=== PATIENT | female | born 2005 | race Caucasian/White ===

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

== ENCOUNTER 2023-01-05 08:32 | Emergency (ER) | payer BC, SELFPAY ==
[2023-01-05 08:32] VITALS: BP 122/73; PULSE 83; RESP 16; TEMP 36.6; O2SAT 96; BMI 48.2
[2023-01-05 08:42] VITALS: BP 122/73; PULSE 72; RESP 20; O2SAT 96
[2023-01-05 08:53] LABS: Microscopic, Urine URINE MICROSCOPIC (MICROSCOPIC)
--- NOTE | 2023-01-05 08:56 | US_ITS ---
FINAL REPORT CLINICAL HISTORY: 1st trimester bleeding FINDINGS: A single intrauterine is present. No cardiac activity is identified. Estimated gestational age based on crown-rump length is 6 weeks 5 days. There is no evidence of subchorionic hemorrhage. No significant free fluid is identified. IMPRESSION: IUP without demonstrative cardiac activity suspicious for intrauterine demise. Reviewed, Interpreted and Dictated by Sabi Nelson MD Transcribed by Lelo Thomas Authenticated and [facility]
[2023-01-05 08:58] LABS: Appearance,Urine CLEAR (Clear); Bilirubin,Urine Negative (Negative); Blood, Urine 2+ (Negative); Color,Urine YELLOW (Yellow); Glucose,Urine (UA) Negative (Negative); Ketones,Urine Negative (Negative); Leukocyte Esterase,Urine TRACE (Negative); Nitrate,Urine Negative (Negative); Protein,Urine Negative (Negative); Specific Gravity, Urine >= 1.030 (1.005-1.030); Urobilinogen,Urine 0.2 EU/dl (0.2)
[2023-01-05 09:02] LABS: Urine Pregnancy, HCG Qual. Positive (Negative)
--- NOTE | 2023-01-05 09:02 | PC.NURSE ---
PT GOING UP FOR TRANSVAG US
[2023-01-05 09:07] LABS: Basophils % 0.5 % (0.1-2.0); Eosinophils # 0.1 K/mm3 (0.0-0.4); Eosinophils % 1.5 % (0.1-12.0); Hematocrit 43.4 % (37.0-47.0); Hemoglobin 14.2 g/dL (12.2-16.2); Lymphocytes # 2.1 K/mm3 (0.7-4.5); Lymphocytes % 28.3 % (10-50); Mean Corpuscular HGB Conc 32.8 g/dL (31.8-35.4); Mean Corpuscular Volume 88.6 fl (81-99); Mean Platelet Volume 7.5 fl (7.4-10.4); Monocytes # 0.4 K/mm3 (0.1-1.0); Monocytes % 4.6 % (1.7-9.3); Neutrophils # 4.9 K/mm3 (1.8-7.8); Neutrophils % 65.1 % (37.0-80.0); Platelet Count 293 K/mm3 (142-424); Red Cell Distribution Width 13.6 % (11.5-17.5); White Blood Count 7.6 K/mm3 (4.5-13.0)
--- NOTE | 2023-01-05 09:09 | HMH.EDGENADL ---
Discharge Plan Disposition Patient Disposition: Home, Self-Care Chief Complaint: Vaginal Bleeding Prescriptions Prescriptions: No Action norgestimate-ethinyl estradiol [Ortho Tri-Cyclen (28)] 0.18/0.215/0.25 mg-35 mcg (28) tablet 1 tab PO DAILY Referrals Follow up/Referrals: Waldemar Baltazar [Primary Care Provider] - See instructions Activity Restrictions/Add. Instructions Additional Instructions/Restrictions: Return for worsening bleeding abdominal pain or any other concerns within the next 8 hours follow-up in the next few days with your wedding cake designer as well. Clinical Impressions Clinical Impression: First trimester bleeding Discharge ED Provider: Kelby Daniels General Adult HPI General Chief complaint: Vaginal Bleeding Stated complaint: 7 Weeks , spotting Time Seen by Provider: 01/05/23 08:40 Mode of Arrival: Ambulatory Source of Information: Patient Limitations: No Limitations Description of Symptoms (Recalled from ER Triage Doc. by RN): Pt reports is approx 7 weeks , reports began having vaginal bleeding this morning, describes it as spotting in nature. Pt states no cramping. History of Present Illness HPI narrative: 17-year-old female presents with vaginal spotting for 1 day. She is reportedly 7 weeks she did have a transvaginal ultrasound which showed a gestational sac a few weeks ago. No dysuria hematuria vaginal discharge diarrhea or vomiting. No abdominal pain. She has history of being be positive last fall. Related Data Home Medications Medication Instructions Recorded Confirmed norgestimate-ethinyl estradiol 1 tab PO DAILY 08/18/18 04/20/19 0.18 mg/0.215mg/0.25mg-35 mcg(28)tablet (Ortho Tri-Cyclen (28)) Allergies Allergy/AdvReac Type Severity Reaction Status Date / Time No Known Allergies Allergy Verified 04/20/19 10:32 [facility] Disclaimer: The information contained in this section may have been updated after the patient was seen, as this information can be updated by other users. Social History Smoking Status: Never smoker alcohol intake: never substance use type: denies use current occupational status: student Travel in the last 8 weeks: None household members: family housing: house ROS Obtained: Yes All systems reviewed & no additional complaints except as documented Constitutional Constitutional: Denies fatigue and Denies headache(s) Eyes Eyes: Denies dry eyes ENT Ears, Nose, Mouth, and Throat: Denies dizziness and Denies headache(s) Cardiovascular Cardiovascular: Denies dyspnea Respiratory Respiratory: Denies dyspnea Gastrointestinal Gastrointestingal: Denies coffee ground emesis Genitourinary Female Genitourinary: Denies hematuria Musculoskeletal Musculoskeletal: Denies joint stiffness Integumentary/Breasts Skin/Breast: Denies dry skin Neurologic Neurologic: Denies dizziness and Denies headache(s) Endocrine Endocrine: Denies fatigue Hematologic/Lymphatic Henatologic/Lymphatic: Denies easy bleeding Allergic/Immunologic Allergic/Immunologic: Denies urticaria Physical Exam General General appearance: alert and in no apparent distress Eye Eye exam: Present PERRL and EOMI ENT ENT exam: Present normal exam and normal oropharynx Neck Neck exam: Present normal inspection Chest Chest inspection: Present symmetric chest wall rise Respiratory Respiratory exam: Present normal lung sounds bilaterally; Absent respiratory distress Cardiovascular Cardiovascular exam: Present regular rate and normal rhythm Abdominal Exam Abdominal exam: Present soft; Absent distention, tenderness, guarding, rebound, Castelan's sign or tenderness at McBurney's Point Back Exam Back exam: Present normal inspection Neurological Exam Neurological exam: Present alert and oriented X3 Psychiatric Psychiatric exam: Present normal affect and normal mood Skin Skin exam: Present warm, dry and intact Lymphatic Lymphatic Findings: no adenopathy
[2023-01-05 09:17] LABS: Alanine Aminotransferase 40 U/L (12-78); Albumin Level 4.3 g/dl (3.5-5.0); Albumin/Globulin Ratio 1.5 (1.1-1.8); Alkaline Phosphatase 76 U/L (38-126); Anion Gap 16.7 mEq/L (5-15); Aspartate Amino Transferase 38 U/L (14-36); Bilirubin,Total 0.5 mg/dl (0.2-1.3); Blood Urea Nitrogen 14 mg/dl (7-17); Calcium 9.5 mg/dl (8.4-10.2); Carbon Dioxide 25 mmol/L (22.0-30.0); Chloride 99 mmol/L (98-107); Creatinine Clearance Estimated 136 mL/min (50-200); Estimated Glomerular Filt Rate 129 ml/min (>60); GFR (African American) 156 ML/MIN (>60); Globulin 2.8 g/dL (1.3-3.2); Glucose 97 mg/dl (74-100); Potassium 3.7 mmoL/L (3.5-5.1); Sodium 137 mmol/L (136-145); Total Protein,Serum 7.1 g/dl (6.3-8.2)
[2023-01-05 09:18] LABS: Bacteria,Urine 1+ /lpf; RBC,Urine Occasional #/hpf (0-3)
--- NOTE | 2023-01-05 09:44 | PC.NURSE ---
lab states approx 15 minutes until beta quant results, updated pt
--- NOTE | 2023-01-05 09:52 | PC.NURSE ---
DORETHA SINGH at
[2023-01-05 09:59] LABS: HCG,Quantitative 2933 mIU/ml (0-5.42)
[2023-01-05 10:05] VITALS: BP 127/75; PULSE 75; RESP 16; TEMP 36.6; O2SAT 98
== END 2023-01-05 10:05 | disposition home or self-care (01) ==
PROVIDERS: Emergency Provider Emergency Medicine; PCP Family Medicine
DX: O26.851 Spotting complicating pregnancy, first trimester (principal); Z3A.01 Less than 8 weeks gestation of pregnancy
CPT/HCPCS: 36415; 76815; 76817; 80053; 81001; 81025; 84702; 85025; 99284; 99285

== ENCOUNTER 2023-02-05 11:07 | Emergency (ER) | payer BC, SELFPAY ==
--- NOTE | 2023-02-05 11:16 | HMH.EDGENADL ---
Discharge Plan Disposition Patient Disposition: Home, Self-Care Prescriptions Prescriptions: New benzonatate 100 mg capsule 100 mg PO TID PRN (Reason: cough) 5 Days Qty: 20 0RF ondansetron 4 mg tablet,disintegrating 4 mg PO Q6H PRN (Reason: nausea and vomiting) 5 Days Qty: 20 0RF No Action norgestimate-ethinyl estradiol [Ortho Tri-Cyclen (28)] 0.18/0.215/0.25 mg-35 mcg (28) tablet 1 tab PO DAILY Referrals Follow up/Referrals: Waldemar Baltazar [Primary Care Provider] - See instructions Activity Restrictions/Add. Instructions Additional Instructions/Restrictions: Please treat your symptoms supportively taking the Zofran and your Tessalon Perles as needed for nausea and cough. You may take 800 mg of smmx-zau-yqglbce ibuprofen 3 times a day with food and I would recommend that you buy yvny-hbe-qurvimy extended release Sudafed 120 mg to take twice a day. You will need to ask the pharmacist for this but is still joro-pgj-vozkuhz do not need a prescription for this. Return with any worsening concerns. Clinical Impressions Clinical Impression: COVID-19 Discharge ED Provider: Benson Odonnell General Adult HPI General Chief complaint: Upper Respiratory Infection Stated complaint: covid +, sore throat, congestion,body aches,chills Time Seen by Provider: 02/05/23 11:16 History of Present Illness HPI narrative: Patient is a 17-year-old female here with multiple complaints. She states she been having body aches sinus congestion sore throat cough and some nausea with vomiting. She was able to eat a banana this morning without any difficulty. She states she just wanted to come and get some prescriptions today for treating her symptoms. She has no other underlying medical problems. She took a home COVID test which was positive. Related Data Home Medications Medication Instructions Recorded Confirmed norgestimate-ethinyl estradiol 1 tab PO DAILY 08/18/18 04/20/19 0.18 mg/0.215mg/0.25mg-35 mcg(28)tablet (Ortho Tri-Cyclen (28)) Previous Rx's Medication Instructions Recorded benzonatate 100 mg capsule 100 mg PO TID PRN cough 5 days #20 02/05/23 caps ondansetron 4 mg disintegrating 4 mg PO Q6H PRN nausea and 02/05/23 tablet vomiting 5 days #20 tabs Allergies Allergy/AdvReac Type Severity Reaction Status Date / Time No Known Allergies Allergy Verified 04/20/19 10:32 [facility] Disclaimer: The information contained in this section may have been updated after the patient was seen, as this information can be updated by other users. Social History Smoking Status: Never smoker alcohol intake: never substance use type: denies use current occupational status: student Travel in the last 8 weeks: None household members: family housing: house ROS Obtained: Yes All systems reviewed & no additional complaints except as documented Physical Exam General General appearance: alert Respiratory Respiratory exam: Present normal lung sounds bilaterally Cardiovascular Cardiovascular exam: Present regular rate; Absent tachycardia Neurological Exam Neurological exam: Present alert Medical Decision Making Jb Inquiry Pt receiving controlled substance: No Vital Signs: 02/05/23 11:28 Temperature 98.2 F Temperature Source Oral Pulse Rate [Right Brachial] 94 H Respiratory Rate 18 Blood Pressure [Right Arm] 120/68 Blood Pressure Mean [Right Arm] 85 Blood Pressure Source [Right Arm] Automatic Cuff Blood Pressure Position [Right Arm] Sitting 02 Sat by Pulse Oximetry 98 Oxygen Delivery Method Room Air Medical Decision Narrative: 17-year-old female with a home COVID-positive test and viral symptoms this is consistent with viral syndrome associated with COVID-19. We will treat supportively she is not high risk not a candidate for Paxlovid she also does not need any other intervention at the moment her exam is completely normal. Told her to take ibuprofen and over-the
[2023-02-05 11:28] VITALS: BP 120/68; PULSE 94; RESP 18; TEMP 36.8; O2SAT 98; BMI 46.5
[2023-02-05 11:33] VITALS: BP 120/68; PULSE 94; RESP 18; TEMP 36.8; O2SAT 98
== END 2023-02-05 11:37 | disposition home or self-care (01) ==
PROVIDERS: Emergency Provider Student in an Organized Health Care Education/Training Program; PCP Family Medicine
DX: U07.1 COVID-19 (principal); J06.9 Acute upper respiratory infection, unspecified; R11.2 Nausea with vomiting, unspecified
CPT/HCPCS: 99283; 99284

== ENCOUNTER → 2023-04-21 13:42 | Outpatient (CLI) | payer BC, SELFPAY ==
[2023-04-21 16:04] LABS: HCG,Quantitative 612 mIU/ml (0-5.42)
== END ==
PROVIDERS: PCP Family Medicine; Visit Provider Obstetrics & Gynecology
DX: Z32.01 Encounter for pregnancy test, result positive (principal)
CPT/HCPCS: 36415; 84702

== ENCOUNTER 2023-05-02 12:54 | Emergency (ER) | payer BC, SELFPAY ==
[2023-05-02 13:10] VITALS: BP 132/46; PULSE 92; RESP 18; TEMP 36.8; O2SAT 98; BMI 48.2
--- NOTE | 2023-05-02 13:24 | EXP.UTC ---
Discharge Plan Disposition Patient Disposition: Home, Self-Care Condition: Good Prescriptions Prescriptions: No Action progesterone micronized 200 mg capsule 200 mg PO DAILY Patient Comments: TAKE 1 CAPSULE BY MOUTH ONCE DAILY AT NIGHT Referrals Follow up/Referrals: Waldemar Baltazar [Primary Care Provider] - See instructions Activity Restrictions/Add. Instructions Additional Instructions/Restrictions: Drink plenty of fluids. Take tylenol for pain or fever. Follow up with your regular doctor. GO TO THE ER FOR ANY WORSENING SYMPTOMS Clinical Impressions Clinical Impression: Acute viral syndrome Stand Alone Forms Stand Alone Forms: Work/School Release Instructions Patient Instructions: DI for Viral Syndrome, Coronavirus Disease 2019, Preventing the Spread of Coronavirus Discharge Instructions Discharge ED Provider: Rios Gutierrez [facility] General Stated complaint: sore throat Mode of Arrival: Ambulatory Source of Information: Patient Limitations: No Limitations Time Seen by Provider: 05/02/23 13:24 Description of Symptoms (Recalled from Triage Doc. by RN): Covid test for schoo; HEENT Symptoms (Recalled from RN notes): No Resp Symptoms (Recalled from RN notes): No Skin Symptoms (Recalled from RN notes): No MS Symptoms (Recalled from RN notes): No Functional Status (Recalled from RN notes): n/a History of Present Illness Provider Complaint: She states that she has had a runny nose and scratchy throat for the past 2 days. She is starting to feel better, but her work requires a covid-19 test. Related Data Home Medications Medication Instructions Recorded Confirmed progesterone micronized 200 mg 200 mg PO DAILY 05/02/23 05/02/23 capsule Allergies Allergy/AdvReac Type Severity Reaction Status Date / Time No Known Allergies Allergy Verified 05/02/23 13:16 Worker's Comp Is this a Worker's Comp case?: No [facility] Disclaimer: The information contained in this section may have been updated after the patient was seen, as this information can be updated by other users. Social History Smoking Status: Never smoker alcohol intake: never substance use type: denies use current occupational status: student Travel in the last 8 weeks: None household members: family housing: house ROS Obtained: Yes All systems reviewed & no additional complaints except as documented Constitutional Constitutional: Denies chills and Denies fever(s) Eyes Eyes: Denies eye discharge ENT Ears, Nose, Mouth, and Throat: Denies dizziness, Denies otalgia and Denies sore throat Cardiovascular Cardiovascular: Denies chest pain Respiratory Respiratory: Denies shortness of breath, Denies chest congestion, Denies cough, Denies stridor and Denies wheezing Gastrointestinal Gastrointestingal: Denies nausea or vomiting Musculoskeletal Musculoskeletal: Reports system reviewed and no additional complaints, except as documented and Denies arthralgias Integumentary/Breasts Skin/Breast: Denies rash Neurologic Neurologic: Denies dizziness and Denies paresthesias Allergic/Immunologic Allergic/Immunologic: Denies wheezing Physical Exam General General appearance: alert and in no apparent distress Head Head exam: atraumatic, normocephalic and normal inspection Eye Eye exam: Present normal appearance, PERRL and EOMI ENT ENT exam: Present normal exam, normal oropharynx, mucous membranes moist, TM's normal bilaterally and normal external ear exam Neck Neck exam: Present normal inspection, full ROM and trachea midline; Absent meningismus or lymphadenopathy Chest Chest inspection: Present normal inspection and symmetric chest wall rise; Absent tenderness Respiratory Respiratory exam: Present normal lung sounds bilaterally; Absent respiratory distress Cardiovascular Cardiovascular exam: Present regular rate and normal rhythm; Absent JVD Abdominal E
[2023-05-02 13:55] VITALS: BP 132/46; PULSE 92; RESP 18; TEMP 36.8; O2SAT 98
== END 2023-05-02 13:40 | disposition home or self-care (01) ==
PROVIDERS: Emergency Provider Nurse Practitioner Family; PCP Family Medicine
DX: R09.81 Nasal congestion (principal); Z20.822 Contact with and (suspected) exposure to COVID-19; B34.9 Viral infection, unspecified
CPT/HCPCS: 99203; 99212; G0463

== ENCOUNTER 2024-03-05 15:13 | Emergency (ER) | payer BC, SELFPAY ==
--- NOTE | 2024-03-05 15:25 | EXP.UTC ---
Discharge Plan Disposition Patient Disposition: Home, Self-Care Condition: Good Prescriptions Prescriptions: New amoxicillin 875 mg tablet 875 mg PO Q12H Qty: 20 0RF methylprednisolone 4 mg Tablets,Dose Pack 4 mg PO DIRECTED 6 Days Qty: 21 0RF Rx Instructions: Take 1 pack as directed for 6 days qnhasjxrmiyrobh-ynskjapcy-RR [Bromfed DM] 2-30-10 mg/5 mL Syrup 5 ml PO Q6H PRN (Reason: Cough) Qty: 240 0RF No Action progesterone micronized 200 mg capsule 200 mg PO DAILY Patient Comments: TAKE 1 CAPSULE BY MOUTH ONCE DAILY AT NIGHT Referrals Follow up/Referrals: Waldemar Baltazar [Primary Care Provider] - See instructions Activity Restrictions/Add. Instructions Additional Instructions/Restrictions: Drink plenty of fluids. Take tylenol for pain or fever. Take the medications as directed. Follow up with your regular doctor. GO TO THE ER FOR ANY WORSENING SYMPTOMS Clinical Impressions Clinical Impression: Pharyngitis, Acute viral syndrome, Sinusitis Stand Alone Forms Stand Alone Forms: Work/School Release Instructions Patient Instructions: Sinusitis, DI for Sinusitis Discharge ED Provider: Rios Gutierrez [facility] General Stated complaint: philip, sore throat, vomiting Time Seen by Provider: 03/05/24 15:24 History of Present Illness Provider Complaint: She states that for the past 3 days she has had worsening sinus congestion, sore throat, ear pain and chest congestion. Related Data Home Medications Medication Instructions Recorded Confirmed progesterone micronized 200 mg 200 mg PO DAILY 05/02/23 05/02/23 capsule Previous Rx's Medication Instructions Recorded amoxicillin 875 mg tablet 875 mg PO Q12H #20 tabs 03/05/24 yvazwsatbvidfqm-pkuewvfzdmnfyxp-SG 5 ml PO Q6H PRN Cough #240 mL 03/05/24 2 mg-30 mg-10 mg/5 mL oral syrup (Bromfed DM) methylprednisolone 4 mg tablets in 4 mg PO DIRECTED 6 days #21 tabs 03/05/24 a dose pack Allergies Allergy/AdvReac Type Severity Reaction Status Date / Time No Known Allergies Allergy Verified 03/05/24 15:29 [facility] Disclaimer: The information contained in this section may have been updated after the patient was seen, as this information can be updated by other users. Social History Smoking Status: Never smoker alcohol intake: never substance use type: denies use current occupational status: student Travel in the last 8 weeks: None household members: family housing: house ROS Obtained: Yes All systems reviewed & no additional complaints except as documented Constitutional Constitutional: Reports chills and Reports fever(s) Eyes Eyes: Denies eye discharge ENT Ears, Nose, Mouth, and Throat: Reports as per HPI Cardiovascular Cardiovascular: Denies chest pain Respiratory Respiratory: Denies chest congestion and Reports cough Gastrointestinal Gastrointestingal: Reports nausea; Denies abdominal pain, constipation, cramping, diarrhea or vomiting Musculoskeletal Musculoskeletal: Denies arthralgias Integumentary/Breasts Skin/Breast: Denies rash Neurologic Neurologic: Denies paresthesias Physical Exam General General appearance: alert and in no apparent distress Head Head exam: atraumatic, normocephalic and normal inspection Eye Eye exam: Present normal appearance, PERRL and EOMI ENT ENT exam: Present mucous membranes moist and normal external ear exam Expanded ENT Exam TM/Canal exam: Bilateral TM: erythema and bulging Nose exam: Absent sinus tenderness Mouth exam: Present normal external inspection; Absent drooling Teeth exam: Present normal inspection Throat exam: Present tonsillar erythema, tonsillomegaly and tonsillar exudate Neck Neck exam: Present normal inspection, full ROM and trachea midline; Absent tenderness, meningismus or lymphadenopathy Chest Chest inspection: Present normal inspection and symmetric chest wall rise; Absent tenderness Respiratory Respiratory exam: Present normal lung sounds bilaterally; Absent respiratory distress, wheezes, stridor or accessory muscle use Cardiovascular Cardiovascular exam: Present regular rate and normal rhythm; Absent systolic murmur or diastolic murmur Abdominal Exam Abdominal exam: Present soft and normal bowel sounds; Absent distention, tenderness, guarding, rebound or rigidity Extremities Exam Extremities exam: Present normal inspection and normal capillary refill; Absent calf tenderness Back Exam Back exam: Present normal inspection and full ROM; Absent tenderness, CVA tenderness (R) or CVA tenderness (L) Neurological Exam Neurological exam: Present alert, oriented X3 and CN II-XII intact Psychiatric Psychiatric exam: Present normal affect and normal mood Skin Skin exam: Present warm, dry, intact and normal color Medical Decision Making Medical Records Medical records reviewed: No I reviewed the patient's medical records. Jb Inquiry Pt receiving controlled substance: No Lab Data Lab results reviewed: Yes I reviewed the patient's lab results.
[2024-03-05 15:27] VITALS: BP 132/72; PULSE 75; RESP 16; TEMP 36.9; O2SAT 95; BMI 44.9
[2024-03-05 15:35] LABS: UTC Strep Screen (Rapid) Negative (Negative)
[2024-03-05 15:43] VITALS: BP 132/72; PULSE 75; RESP 16; TEMP 36.9
[2024-03-05 15:50] LABS: Coronavirus 19, PCR Not Detected (NotDetected); Influenza A, PCR Not Detected (NotDetected); Influenza B, PCR Not Detected (NotDetected)
== END 2024-03-05 15:44 | disposition home or self-care (01) ==
PROVIDERS: Emergency Provider Nurse Practitioner Family; PCP Family Medicine
DX: J02.9 Acute pharyngitis, unspecified (principal); J01.90 Acute sinusitis, unspecified; H92.03 Otalgia, bilateral; R50.9 Fever, unspecified; B34.9 Viral infection, unspecified
CPT/HCPCS: 87636; 87880; 99212; 99214; G0463

== ENCOUNTER 2024-06-29 08:41 | Emergency (ER) | payer BC, SELFPAY ==
[2024-06-29 08:56] VITALS: BP 119/57; PULSE 100; RESP 18; TEMP 36.7; O2SAT 97; BMI 44.9
[2024-06-29 09:07] LABS: UTC Strep Screen (Rapid) Negative (Negative)
[2024-06-29 09:08] LABS: UTC Influenza A Antigen Negative (Negative); UTC Influenza B Antigen Negative (Negative)
--- NOTE | 2024-06-29 09:19 | ED_ITS ---
Discharge Plan Disposition Patient Disposition: Home, Self-Care Condition: Good Prescriptions Prescriptions: New gscvmxhnieuifxf-ksrjcpong-MN [Bromfed DM] 2-30-10 mg/5 mL syrup 10 ml PO Q4-6H PRN (Reason: cough/sinus ) Qty: 200 0RF Referrals Follow up/Referrals: Waldemar Baltazar [Primary Care Provider] - See instructions Activity Restrictions/Add. Instructions Additional Instructions/Restrictions: Take medication as prescribed. If symptoms persist or worsen, return to clinic or go to primary care provider. Clinical Impressions Clinical Impression: Acute viral syndrome Instructions Patient Instructions: DI for Viral Upper Respiratory Infection -- Adult Print Language Print Language: Thai Discharge ED Provider: Kya Friedman [facility] – [place] HPI General Stated complaint: sore throat, congestion, fever, body aches Mode of Arrival: Ambulatory Source of Information: Patient Time Seen by Provider: 06/29/24 09:18 Description of Symptoms (Recalled from Triage Doc. by RN): SORE THROAT, CONGESTION, BODY ACHES, LOW GRADE FEVER AT HOME HEENT Symptoms (Recalled from RN notes): Yes Resp Symptoms (Recalled from RN notes): Yes Skin Symptoms (Recalled from RN notes): No MS Symptoms (Recalled from RN notes): No Functional Status (Recalled from RN notes): WNL History of Present Illness Provider Complaint: Pt reports that she started feeling bad after trick or tr eating. She reports a low grade fever up to 99.8, sore throat, cough, and runny nose. She denies taking anything for her symptoms. Related Data Previous Rx's ?Medication ?Instructions ?Recorded mzberbowvqhaekx-onkrwfflvzzorth-EC 10 ml PO Q4-6H PRN cough/sinus 06/29/24 2 mg-30 mg-10 mg/5 mL oral syrup #200 mL (Bromfed DM) Allergies Allergy/AdvReac Type Severity Reaction Status Date / Time No Known Allergies Allergy Verified 03/05/24 15:29 Worker's Comp Is this a Worker's Comp case?: No [facility] Disclaimer: The information contained in this section may have been updated after the patient was seen, as this information can be updated by other users. Social History Smoking Status: Never smoker alcohol intake: never substance use type: denies use current occupational status: student Travel in the last 8 weeks: None household members: family housing: house ROS Obtained: Yes All systems reviewed & no additional complaints except as documented Constitutional Constitutional: Reports system reviewed and no additional complaints, except as documented, Reports fever(s) and Reports malaise Eyes Eyes: Reports system reviewed and no additional complaints, except as documented ENT Ears, Nose, Mouth, and Throat: Reports system reviewed and no additional complaints, except as documented, Reports nasal discharge and Reports sore throat Cardiovascular Cardiovascular: Reports system reviewed and no additional complaints, except as documented Respiratory Respiratory: Reports system reviewed and no additional complaints, except as documented and Reports non-productive cough Gastrointestinal Gastrointestingal: Reports system reviewed and no additional complaints, except as documented Genitourinary Female Genitourinary: Reports system reviewed and no additional complaints, except as documented Musculoskeletal Musculoskeletal: Reports system reviewed and no additional complaints, except as documented Integumentary/Breasts Skin/Breast: Reports system reviewed and no additional complaints, except as documented Neurologic Neurologic: Reports system reviewed and no additional complaints, except as documented Endocrine Endocrine: Reports system reviewed and no additional complaints, except as documented Hematologic/Lymphatic Henatologic/Lymphatic: Reports system reviewed and no additional complaints, except as documented Allergic/Immunologic Allergic/Immunologic: Reports system reviewed and no additional complaints, except as documented Physical Exam General General appearance: alert and in no apparent distress Head Head exam: atraumatic and normocephalic Eye Eye exam: Present normal appearance ENT ENT exam: Present mucous membranes moist Expanded ENT Exam External ear exam: Present normal external inspection Nasal speculum exam: Bilateral: normal Mouth exam: Present normal external inspection Teeth exam: Present normal inspection Throat exam: Present tonsillar erythema Neck Neck exam: Present normal inspection Chest Chest inspection: Present normal inspection and symmetric chest wall rise Respiratory Respiratory exam: Present normal lung sounds bilaterally Cardiovascular Cardiovascular exam: Present regular rate and normal rhythm Abdominal Exam Abdominal exam: Present soft and normal bowel sounds Extremities Exam Extremities exam: Present normal inspection Back Exam Back exam: Present normal inspection Neurological Exam Neurological exam: Present alert and oriented X3 Psychiatric Psychiatric exam: Present normal affect and normal mood Skin Skin exam: Present warm, dry and intact Lymphatic Lymphatic Findings: no adenopathy Medical Decision Making Medical Records Screening: Per USPSTF and CDC recommendations, given the prevalence of disease in our region, it is our hospital?s policy to screen for HIV and viral Hepatitis for all patients aged 18 and over and those with ongoing risk factors. Jb Inquiry Pt receiving controlled substance: No Jb was queried for this patient: No Vital Signs: 06/29/24 08:56 Temperature 98.1 F Temperature Source Oral Pulse Rate [Left Brachial] 100 H Respiratory Rate 18 Blood Pressure [Left Arm] 119/57 L Blood Pressure Mean [Left Arm] 77 02 Sat by Pulse Oximetry 97 Lab Data Lab results reviewed: Yes I reviewed the patient's lab results. Lab Results 06/29/24 08:56: Influenza Type A Ag Negative, Influenza Type B Ag Negative, Strep Scn Rapid Clinic Negative Orders (Tests/Meds): ORDERS Category Date Time Status Strep Screen Confirmation Stat Micro 06/29/24 08:56 Received
[2024-06-29 09:37] VITALS: BP 119/57; PULSE 100; RESP 18; TEMP 36.7
== END 2024-06-29 09:37 | disposition home or self-care (01) ==
PROVIDERS: Emergency Provider Nurse Practitioner Family; PCP Family Medicine
DX: J06.9 Acute upper respiratory infection, unspecified (principal)
CPT/HCPCS: 87804; 87880; 99213; G0381

== ENCOUNTER 2024-07-01 08:09 | Emergency (ER) | payer BC, SELFPAY ==
[2024-07-01 08:20] VITALS: BP 122/70; PULSE 104; RESP 20; TEMP 36.8; O2SAT 96; BMI 44.7
--- NOTE | 2024-07-01 08:50 | ED_ITS ---
Discharge Plan Disposition Patient Disposition: Home, Self-Care Condition: Good Prescriptions Prescriptions: New methylprednisolone [Medrol (Braydon)] 4 mg tablets,dose pack See Rx Instructions .Route .COMPLEX 6 Days Qty: 21 0RF Rx Instructions: taper pack; guaifenesin [Mucinex] 600 mg tablet extended release 12hr 1,200 mg PO BID PRN (Reason: cough) Qty: 20 0RF azithromycin [Zithromax Z-Braydon] 250 mg tablet See Rx Instructions .ROUTE .COMPLEX 5 Days Qty: 6 0RF Rx Instructions: For 250 mg dose pack: take 500 mg today (day 1), then 250 mg for 4 days (days 2-5) No Action ejfcxqpfjetaaat-rgkagpndk-CB [Bromfed DM] 2-30-10 mg/5 mL syrup 10 ml PO Q4-6H PRN (Reason: cough/sinus ) Qty: 200 0RF Referrals Follow up/Referrals: Waldemar Baltazar [Primary Care Provider] - See instructions Activity Restrictions/Add. Instructions Additional Instructions/Restrictions: *Monitor Temp, Over the counter Motrin or Tylenol as directed/as needed Tylenol every 4 hours and Motrin every 6 hours (as long as your family doctor has told you that you can take it) for fever or pain. and straight to ER if unable to lower temp less than 101.0 after medication given *Warm salt water gargles may help to soothe the throat *Throat Lozenges? *Warm fluids like tea with honey may help to soothe the throat? *Sleep elevated *Humidifier/Vaporizer *Bromfed may cause drowsiness. Know how it effects you (your child) before driving, caring for small child, or sending your child to school. Not other antihistamines/allergy medications while taking bromfed Take medication as prescribed Follow up IMMEDIATELY for new or worsening symptoms or no Noticeable improvement over the next 48-72 hours. 911 for difficulty breathing or swallowing Clinical Impressions Clinical Impression: Pharyngitis Instructions Patient Instructions: Sore Throat, Cough Print Language Print Language: Polish Discharge ED Provider: Sarika Felipe [facility] HPI General Stated complaint: sore throat, cough, congestion, fever Mode of Arrival: Ambulatory Source of Information: Patient Limitations: No Limitations Time Seen by Provider: 07/01/24 08:51 Description of Symptoms (Recalled from Triage Doc. by RN): PATIENT C/O NAUSEA, VOMITING, SORE THROAT, COUGH, AND CONGESTION. SHE STATES SHE WAS SEEN ON MONDAY AND WAS GIVEN COUGH MEDICINE, BUT STATES SYMPTOMS ARE WORSE HEENT Symptoms (Recalled from RN notes): Yes Resp Symptoms (Recalled from RN notes): Yes Skin Symptoms (Recalled from RN notes): No MS Symptoms (Recalled from RN notes): No Functional Status (Recalled from RN notes): WNL History of Present Illness Provider Complaint: Patient states that she was seen on Monday and dx with viral infection States since then her symptoms has got wore states that she is having cough, sore throat and at times coughing up mucous, achy and over all not feeling well States she was prescribed cough medication but it isnt working so today she had to miss work again so she came in to get checked Related Data Previous Rx's ?Medication ?Instructions ?Recorded sfamqqauylndycl-lbsmdplxogpxvzy-VE 10 ml PO Q4-6H PRN cough/sinus 06/29/24 2 mg-30 mg-10 mg/5 mL oral syrup #200 mL (Bromfed DM) azithromycin 250 mg tablet See Rx Instructions PO .COMPLEX 5 07/01/24 (Zithromax Z-Braydon) days #6 tabs guaifenesin 600 mg tablet, 1,200 mg (2 x 600 mg) PO BID PRN 07/01/24 extended release 12 hr (Mucinex) cough #20 tabs methylprednisolone 4 mg tablets in See Rx Instructions .Route 07/01/24 a dose pack (Medrol (Braydon)) .COMPLEX 6 days #21 tabs Allergies Allergy/AdvReac Type Severity Reaction Status Date / Time No Known Allergies Allergy Verified 03/05/24 15:29 Worker's Comp Is this a Worker's Comp case?: No [facility] Disclaimer: The information contained in this section may have been updated after the patient was seen, as this information can be updated by other users. Medical History (Updated 07/01/24 @ 09:00 by Sarika Felipe APRN) Asthma Surgical History (Updated 07/01/24 @ 08:48 by Jazmyne Hubbard RN) History of section Social History Smoking Status: Never smoker alcohol intake: never substance use type: denies use current occupational status: student Travel in the last 8 weeks: None household members: family housing: house ROS Obtained: Yes All systems reviewed & no additional complaints except as documented and Yes Systems reviewed as appropriate & no additional complaints except as documented Constitutional Constitutional: Reports system reviewed and no additional complaints, except as documented, Reports as per HPI and Reports body ache ENT Ears, Nose, Mouth, and Throat: Reports system reviewed and no additional complaints, except as documented, Reports as per HPI, Reports nasal congestion, Reports sinus pressure and Reports sore throat Cardiovascular Cardiovascular: Reports system reviewed and no additional complaints, except as documented and Reports as per HPI Respiratory Respiratory: Reports system reviewed and no additional complaints, except as documented, Reports as per HPI, Reports chest congestion and Reports cough Gastrointestinal Gastrointestingal: Reports system reviewed and no additional complaints, except as documented and as per HPI Physical Exam General General appearance: alert and in no apparent distress ENT ENT exam: Present mucous membranes moist and TM's normal bilaterally Expanded ENT Exam Nose exam: Absent sinus tenderness Throat exam: Present other (Pharyngeal erythema noted with PND) Chest Chest inspection: Present normal inspection and symmetric chest wall rise Respiratory Respiratory exam: Present normal lung sounds bilaterally; Absent respiratory distress or wheezes Cardiovascular Cardiovascular exam: Present regular rate, normal rhythm and normal heart sounds Abdominal Exam Abdominal exam: Present soft and normal bowel sounds; Absent distention or tenderness Neurological Exam Neurological exam: Present alert, oriented X3 and normal gait Medical Decision Making Medical Records Screening: Per USPSTF and CDC recommendations, given the prevalence of disease in our region, it is our hospital?s policy to screen for HIV and viral Hepatitis for all patients aged 18 and over and those with ongoing risk factors. Jb Inquiry Pt receiving controlled substance: No Jb was queried for this patient: No Vital Signs: 07/01/24 08:20 Temperature 98.3 F Temperature Source Oral Pulse Rate [Left Brachial] 104 H Respiratory Rate 20 Blood Pressure [Left Arm] 122/70 Blood Pressure Mean [Left Arm] 87 Blood Pressure Source [Left Arm] Automatic Cuff Blood Pressure Position [Left Arm] Sitting 02 Sat by Pulse Oximetry 96 Oxygen Delivery Method Room Air
[2024-07-01 09:01] VITALS: BP 122/70; PULSE 104; RESP 20; TEMP 36.8; O2SAT 96
== END 2024-07-01 09:05 | disposition home or self-care (01) ==
PROVIDERS: Emergency Provider Nurse Practitioner; PCP Family Medicine
DX: J02.9 Acute pharyngitis, unspecified (principal)
CPT/HCPCS: 99213; G0381

== ENCOUNTER 2024-07-04 10:20 | Outpatient (CLI) | payer BC, SELFPAY ==
[2024-07-04 11:29] LABS: HCG,Quantitative 1176 mIU/ml (0-5.42)
== END 2024-07-04 23:59 | disposition home or self-care (01) ==
PROVIDERS: PCP Family Medicine; Visit Provider Obstetrics & Gynecology
DX: Z32.01 Encounter for pregnancy test, result positive (principal)
CPT/HCPCS: 36415; 84702

== ENCOUNTER 2024-07-06 10:48 | Outpatient (CLI) | payer BC, SELFPAY ==
[2024-07-06 12:52] LABS: HCG,Quantitative 2604 mIU/ml (0-5.42)
== END 2024-07-06 23:59 | disposition home or self-care (01) ==
LOC: LAB 10:50
PROVIDERS: PCP Family Medicine; Visit Provider Obstetrics & Gynecology
DX: Z32.01 Encounter for pregnancy test, result positive (principal)
CPT/HCPCS: 36415; 84702

== ENCOUNTER 2024-07-18 08:18 | Emergency (ER) | payer BC, SELFPAY ==
--- OUTSIDE RECORDS SUMMARY | 2024-07-18 08:32 | XMS_ITS | Encounter Summary ---
Author Organization [facility] Address [address] [place] [address] Care Team Providers Care Coke Oven Patcher Name Role Phone Waldemar Baltazar MD Primary Care Provider [phone] Waldemar Baltazar MD Unavailable [phone] Reason for Visit * Reason Comments Labs HCG and progesterone drawn by RN per Dr. Wu Encounter Details Date Type Department Care Team (Latest Contact Info) Description 07/01/2024 11:15 AM EST Clinical Support Obstetrics & Gynecology [facility] [place] [address] Encounter for test, result positive (Primary Dx) Social History Tobacco Use Types Packs/Day Years Used Date Smoking Tobacco: Never Smokeless Tobacco: Never Alcohol Use Standard Drinks/Week Comments Never 0 (1 standard drink = 0.6 oz pur e alcohol) PHQ-2 Answer Date Recorded Patient Health Questionnaire-2 Score 0 12/28/2023 [place] Depression Scale Answer Date Recorded [place] Depression Scale Total 0 01/26/2024 The thought of harming myself has occurred to me . Never 01/26/2024 PHQ-2A Answer Date Recorded Patient Health Questionnaire-2 Score 0 07/12/2023 Comments No Sex and Gender Information Value Date Recorded Sex Assigned at Not on file Legal Sex Female 6:20 PM EDT Gender Identity Not on file Sexual Orientation Not on file documented as of this encounter Miscellaneous Notes * Progress Notes - Eneida Harrington RN - 07/01/2024 11:15 AM EST HCG and progesterone drawn by RN per Dr. Wu documented in this encounter Plan of Treatment Upcoming Encounters Date Type Department Care Team (Late st Contact Info) Description 08/01/2024 10:45 AM EST Routine Obstetrics & Gynecology [address] [place] [address] Chris Olguin MD [address] [place] [address] documented as of this encounter Procedures Procedure Name Priority Date/Time Associated Diagnosis Comments PROGESTERONE III Routine 07/01/2024 11:1 8 AM EST Encounter for test, result positive HCG, QUANTITATIVE Routine 07/01/2024 11: 12 AM EST Encounter for test, result positive documented in this encounter Results * Progesterone (07/01/2024 11:18 AM EST) Progesterone III 9.44 ng/mL 07/01/20 24 3:12 PM EST [facility] Blood Venous blood specimen / Unknown Venipuncture / Unknown 07/01/2024 11:18 AM EST 07/01/2024 1:12 PM EST Narrative [facility] - 07/01/2024 3:12 PM EST Menstrual Cycle Phase Reference Intervals: Females, 18 Y and up (ng/mL) Follicular ?<= 0.33 Ovulation ? <= 2.35 Luteal ? 0.5-21 Post-Menopausal <0.2 reference Intervals (ng/mL): 1st Trimester ?11 - 45 2nd Trimester ?25 - 84 3rd Trimester ?58 - 214 us Miri Wu MD LAB BLOOD ORDERABLES Fin al Result [facility] [address] [place] [address] * (ABNORMAL) hCG, Total Beta, Quantitative, Plasma (07/01/2024 11:12 AM EST) hCG, Total Beta 470(H) <5 mIU/mL 07/01/2024 2:07 PM EST [facility] Blood Venous blood specimen / Unknown Venipuncture / Unknown 07/01/2024 11:12 AM EST 07/01/2024 1:13 PM EST Narrative [facility] - 07/01/2024 2:07 PM EST Patients: ? Normal Range Premenopausal Female < 5 mIU/mL Male ?< 3 mIU/mL Postmenopausal Female < 8 mIU/mL The Prema Elecsys hCG+beta assay is standardized to the 4th IS for Chorionic Gonadotropin. ??The combination of the specific monoclonal antibodies used in this assay recognizes the holo-hormone, nicked forms of hCG, the Beta-core Fragment and the free beta-subunit. ?? Elevated hCG concentrations not associated with are found in patients with gestational trophoblastic disease and choriocarcinoma as well as germ cell, ovarian, bladder, pancreas, stomach, lung and liver tumors. Performed by the Prema electrochemiluminescent immunoassay which is traceable to the 4th International Standard for hCG (NIBSC 75/589). Results obtained with different test methods or kits cannot be used interchangeably. Miri Wu MD LAB BLOOD ORDERABLES Fin al Result [facility] [address] [place] [address] documented in this encounter Visit Diagnoses Diagnosis Encounter for test, result positive- Primary documented in this encounter Additional Health Concerns Assessment Noted Time A fall risk assessment has been complete d for the patient 12/28/2023 11:31 AM EDT A Body Mass Index follow-up plan has been documented for the patient 07/01/2024 11:39 AM EST documented as of this encounter Care Teams Coke Oven Patcher Relationship Specialty Start Date End Date Waldemar Baltazar MD [address] [place] [address] PCP - General 01/06/23 Waldemar Baltazar MD [address] [place] [address] 01/06/23 documented as of this encounter
--- OUTSIDE RECORDS SUMMARY | 2024-07-18 08:32 | XMS_ITS | Encounter Summary ---
Author Organization [facility] Address [address] [place] [address] Care Team Providers Care Senior Portfolio Manager Name Role Phone Waldemar Baltazar MD Primary Care Provider [phone] Waldemar Baltazar MD Unavailable [phone] Encounter Details Date Type Department Care Team (Latest Contact Info) Description 01/25/2024 Travel Social History Tobacco Use Types Packs/Day Years Used Date Smoking Tobacco: Never Smokeless Tobacco: Never Alcohol Use Standard Drinks/Week Comments Never 0 (1 standard drink = 0.6 oz pur e alcohol) PHQ-2 Answer Date Recorded Patient Health Questionnaire-2 Score 0 12/28/2023 [place] Depression Scale Answer Date Recorded [place] Depression Scale Total 0 01/26/2024 The thought of harming myself has occurred to me . Never 01/26/2024 PHQ-2A Answer Date Recorded Patient Health Questionnaire-2 Score 0 07/12/2023 Comments No Sex and Gender Information Value Date Recorded Sex Assigned at Not on file Legal Sex Female 6:20 PM EDT Gender Identity Not on file Sexual Orientation Not on file documented as of this encounter Plan of Treatment Upcoming Encounters Date Type Department Care Team (Late Contact Info) Description 08/01/2024 10:45 AM EST Routine [facility] [address] [place] [address] Chris Olguin MD [address] [place] [address] documented as of this encounter Visit Diagnoses Not on filedocumented in this encounter Additional Health Concerns Assessment Noted Time A fall risk assessment has been complete d for the patient 12/28/2023 11:31 AM EDT A Body Mass Index follow-up plan has been documented for the patient 12/28/2023 7:44 PM EDT documented as of this encounter Care Teams Senior Portfolio Manager Relationship Specialty Start Date End Date Waldemar Baltazar MD [address] [place] [address] PCP - General 01/06/23 Waldemar Baltazar MD [address] [place] [address] 01/06/23 documented as of this encounter
--- OUTSIDE RECORDS SUMMARY | 2024-07-18 08:32 | XMS_ITS | Encounter Summary ---
Author Organization [facility] Address [address] [place] [address] Care Team Providers Care Break Off Worker Name Role Phone Waldemar Baltazar MD Primary Care Provider [phone] Waldemar Baltazar MD Unavailable [phone] Encounter Details Date Type Department Care Team (Late st Contact Info) Description 07/01/2024 Telephone Obstetrics & Gynecology [address] [place] [address] Miri Wu MD [address] [place] [address] Social History Tobacco Use Types Packs/Day Years Used Date Smoking Tobacco: Never Smokeless Tobacco: Never Alcohol Use Standard Drinks/Week Comments Never 0 (1 standard drink = 0.6 oz pur e alcohol) PHQ-2 Answer Date Recorded Patient Health Questionnaire-2 Score 0 12/28/2023 [place] Depression Scale Answer Date Recorded [place] Depression Scale Total 0 01/26/2024 The thought [...] as of this encounter Miscellaneous Notes * Telephone Encounter - Adamaris Redmond - 07/01/2024 10:19 AM EST Called and scheduled hcg * Telephone Encounter - Adamaris Eldridge - 07/01/2024 10:05 AM EST Clinical Concern/Question Reason for Call: Pt had pos preg test and asking to have her beta drawn today or sent to [facility] for her to do there. Please call. Best contact number: [phone] (mobile) Optimal time of day to reach caller: ANYTIME Additional comments/information from caller: None Note: Please do not reply to this message. Follow-up communication and further actions as a result of this message need to be communicated with the patient directly, if the patient is not active onMyChart. If the patient is active on MyChart, they will receive notification of the communication/outcome via [employer] documented in this encounter Plan of Treatment Upcoming Encounters Date Type Department Care Team (Late st Contact Info) Description 08/01/2024 10:45 AM EST Routine [facility] [address] [place] [address] Chris Olguin MD [address] [place] [address] documented as of this encounter Visit Diagnoses Not on filedocumented in this encounter Additional Health Concerns Assessment Noted Time A fall risk assessment has been complete d for the patient 12/28/2023 11:31 AM EDT A Body Mass Index follow-up plan has been documented for the patient 07/01/2024 11:39 AM EST documented as of this encounter Care Teams Break Off Worker Relationship Specialty Start Date End Date Waldemar Baltazar MD [address] [place] [address] PCP - General 01/06/23 Waldemar Baltazar MD [address] [place] [address] 01/06/23 documented as of this encounter
--- OUTSIDE RECORDS SUMMARY | 2024-07-18 08:32 | XMS_ITS | Encounter Summary ---
Author Organization [facility] Address [address] [place] [address] Care Team Providers Care Soup Mixer Name Role Phone Waldemar Baltazar MD Primary Care Provider Waldemar Baltazar MD Unavailable [phone] Encounter Details Date Type Department Care Team (Latest Contact Info) Description 07/15/2024 9:50 AM EST Ancillary Procedure Obstetrics & Gynecology [address] [place] [address] state, incidental Social History Tobacco Use Types Packs/Day Years Used Date Smoking Tobacco: Never Smokeless Tobacco: Never Alcohol Use Standard Drinks/Week Comments Never 0 (1 standard drink = 0.6 oz pur e alcohol) PHQ-2 Answer Date Recorded Patient Health Questionnaire-2 Score 0 12/28/2023 [place] Depression Scale Answer Date Recorded [place] Depression Scale Total 0 01/26/2024 The thought of harming myself has occurred to me . Never 01/26/2024 PHQ-2A Answer Date Recorded Patient Health Questionnaire-2 Score 0 07/12/2023 Estimated Date of Delivery Comme nts Yes 03/04/2025 Based on last me nstrual period of 05/28/2024 Sex and Gender Information Value Date Recorded Sex Assigned at Not on file Legal Sex Female 6:20 PM EDT Gender Identity Not on file Sexual Orientation Not on file documented as of this encounter Plan of Treatment Upcoming Encounters Date Type Department Care Team (Late st Contact Info) Description 08/01/2024 10:45 AM EST Routine Obstetrics & Gynecology [address] [place] [address] Chris Olguin MD [address] [place] [address] documented as of this encounter Procedures Procedure Name Priority Date/Time Associated Diagnosis Comments TSH REFLEX FT4 Routine 07/15/2024 2:00 PM EST state, incidental EXTRA TUBE LIGHT GREEN TOP Routine 07/15/2024 2:00 PM EST state, incidental EXTRA TUBES Routine 07/15/2024 2:00 PM EST state, incidental US PELVIS TRANSVAGINAL Routine 07/15/2024 9:49 AM EST state, incidental documented in this encounter Results * TSH Reflex FT4 (07/15/2024 2:00 PM EST) Thyroid Stimulating Hormone, Plasma 1.49 0.40 - 4.20 uIU/mL 07/16/2024 5:31 AM EST [facility] Blood Venous blood specimen / Unknown Venipuncture / Unknown 07/15/2024 2:00 PM EST 07/15/2024 2:01 PM EST Narrative [facility] - 07/16/2024 5:31 AM EST Trimester Specific Ranges ?TSH (??IU/mL) 1st Trimester ??0.1 ??- 3.0 2nd Trimester ??0.19 - 4.06 3rd Trimester ??0.3 ??- 3.7 us Miri Wu MD LAB BLOOD ORDERABLES Fin al Result [facility] [address] [place] [address] * Light Green Top (07/15/2024 2:00 PM EST) Extra Hold for add-ons 07/15/2024 4:01 PM EST [facility] Comment:Auto resulted. Blood Venous blood specimen / Unknown Venipuncture / Unknown 07/15/2024 2:00 PM EST 07/15/2024 2:01 PM EST us Miri Wu MD LAB BLOOD ORDERABLES Fin al Result Performing Organization Address City/State/[facility] Co de Phone Number [facility] [address] [place] [address] * US Pelvis Transvaginal (07/15/2024 9:49 AM EST) Anatomical Region Laterality Modality Pelvis Ultrasound 07/15/2024 10:0 6 AM EST Impressions 07/16/2024 2:03 PM EST The OB Ultrasound you requested has been resulted. Please navigate to the Imaging tab in [employer] for review. This message has been generated by the interface. Narrative Procedure Note Miri Wu MD - 07/16/2024 IMPRESSION: The OB Ultrasound you requested has been resulted. Please navigate to theImaging tab in [employer] for review. This message has been generated by theinterface. us Miri Wu MD IMG US PROCEDURES Final Result documented in this encounter Visit Diagnoses Diagnosis state, incidental documented in this encounter Additional Health Concerns Assessment Noted Time A fall risk assessment has been complete d for the patient 07/15/2024 10:02 AM EST A Body Mass Index follow-up plan has been documented for the patient 07/15/2024 11:08 AM EST documented as of this encounter Care Teams Soup Mixer Relationship Specialty Start Date End Date Waldemar Baltazar MD [address] [place] [address] PCP - General 01/06/23 Waldemar Baltazar MD [address] [place] [address] 01/06/23 documented as of this encounter
--- OUTSIDE RECORDS SUMMARY | 2024-07-18 08:32 | XMS_ITS | Encounter Summary ---
Author Organization [facility] Address [address] [place] [address] Care Team Providers Care Life Coach Name Role Phone Waldemar Baltazar MD Primary Care Provider Waldemar Baltazar MD Unavailable [phone] Encounter Details Date Type Department Care Team (Late st Contact Info) Description 07/03/2024 Telephone Obstetrics & Gynecology [address] [place] [address] Miri Wu MD [address] [place] [address] Social History Tobacco Use Types Packs/Day Years Used Date Smoking Tobacco: Never Smokeless Tobacco: Never Alcohol Use Standard Drinks/Week Comments Never 0 (1 standard drink = 0.6 oz pur e alcohol) PHQ-2 Answer Date Recorded Patient Health Questionnaire-2 Score 0 12/28/2023 [place] Depression Scale Answer Date Recorded [place] Depression Scale Total 0 01/26/2024 The thought [...] encounter Miscellaneous Notes * Telephone Encounter - Gill Starkey RN - 07/03/2024 4:38 PM EST Called pt and she had questions answered through [employer] message * Telephone Encounter - Adamaris Eldridge - 07/03/2024 11:02 AM EST Clinical Concern/Question Reason for Call: Pt asking for a nurse to call her back. Please call. Best contact number: [phone] (mobile) Optimal time of day to reach caller: ANYTIME Additional comments/information from caller: None Note: Please do not reply to this message. Follow-up communication and further actions as a result of this message need to be communicated with the patient directly, if the patient is not active onMyChart. If the patient is active on MyChart, they will receive notification of the communication/outcome via [employer]. documented in this encounter Plan of Treatment Upcoming Encounters Date Type Department Care Team (Late st Contact Info) Description 08/01/2024 10:45 AM EST Routine [facility] [address] [place] [address] Chris Olguin MD [address] [place] [address] documented as of this encounter Visit Diagnoses Not on filedocumented in this encounter Additional Health Concerns Assessment Noted Time A fall risk assessment has been complete d for the patient 12/28/2023 11:31 AM EDT A Body Mass Index follow-up plan has been documented for the patient 07/01/2024 11:39 AM EST documented as of this encounter Care Teams Life Coach Relationship Specialty Start Date End Date Waldeamr Baltazar MD [address] [place] [address] PCP - General 01/06/23 Waldemar Baltazar MD [address] [place], [place] [id number] 01/06/23 documented as of this encounter
--- OUTSIDE RECORDS SUMMARY | 2024-07-18 08:32 | XMS_ITS | Encounter Summary ---
Author Organization [facility] Address [address] [place] [address] Care Team Providers Care Chemical Preparer Name Role Phone Waldemar Baltazar MD Primary Care Provider Waldemar Baltazar MD Unavailable [phone] Encounter Details Date Type Department Care Team (Late st Contact Info) Description 07/01/2024 Telephone Obstetrics & Gynecology [address] [place] [address] Miri Wu MD [address] [place] [address] Social History Tobacco Use Types Packs/Day Years Used Date Smoking Tobacco: Never Smokeless Tobacco: Never Alcohol Use Standard Drinks/Week Comments Never 0 (1 standard drink = 0.6 oz pur e alcohol) PHQ-2 Answer Date Recorded Patient Health Questionnaire-2 Score 0 12/28/2023 [place] Depression Scale Answer Date Recorded [place] Depression Scale Total 0 01/26/2024 The thought [...] Miscellaneous Notes * Telephone Encounter - Adamaris Eldridge - 07/01/2024 3:09 PM EST Clinical Concern/Question Reason for Call: Pt states she needs another HCG test on Monday and asking if order can be sent to [facility]. Please call. Best contact number: [phone] (mobile) Optimal time of day to reach caller: ANYTIME Additional comments/information from caller: None Note: Please do not reply to this message. Follow-up communication and further actions as a result of this message need to be communicated with the patient directly, if the patient is not active onMyChart. If the patient is active on MyChart, they will receive notification of the communication/outcome via [email or web address]. documented in this encounter Plan of Treatment Upcoming Encounters Date Type Department Care Team (Late st Contact Info) Description 08/01/2024 10:45 AM EST Routine [facility] [address] [place] [address] Chris Olguin MD [address] [place] [address] documented as of this encounter Visit Diagnoses Not on filedocumented in this encounter Additional Health Concerns Assessment Noted Time A fall risk assessment has been complete d for the patient 12/28/2023 11:31 AM EDT A Body Mass Index follow-up plan has been documented for the patient 07/01/2024 11:39 AM EST documented as of this encounter Care Teams Chemical Preparer Relationship Specialty Start Date End Date Waldemar Baltazar MD [address] [place] [address] PCP - General 01/06/23 Waldemar Baltazar MD [address] [place] [address] 01/06/23 documented as of this encounter
--- OUTSIDE RECORDS SUMMARY | 2024-07-18 08:32 | XMS_ITS | Encounter Summary ---
Author Organization [facility] Address [address] [place] [address] Care Team Providers Care Assembling Motor Builder Name Role Phone Waldemar Baltazar MD Primary Care Provider Waldemar Baltazar MD Unavailable [phone] Reason for Visit * Reason Comments Follow-up 6 wk PP, doing good , doesn't want anything for control; no longer taking Azith Encounter Details Date Type Department Care Team (Late st Contact Info) Description 01/26/2024 1:45 PM EDT Visit Obstetrics & Gynecology [address] [place] [address] Miri Wu MD [address] [place] [address] Routine follow-up (Primary Dx) Social History Tobacco Use Types Packs/Day Years Used Date Smoking Tobacco: Never Smokeless Tobacco: Never Tobacco Cessation:Counseling Given: Not Answered Alcohol Use Standard Drinks/Week Comments Never 0 (1 standard drink = 0.6 oz pur e alcohol) PHQ-2 Answer Date Recorded Patient Health Questionnaire-2 Score 0 12/28/2023 [place] Depression Scale Answer Date Recorded [place] Depression Scale Total 0 01/26/2024 The thought of harming myself has occurred to me . Never 01/26/2024 PHQ-2A Answer Date Recorded Patient Health Questionnaire-2 Score 0 07/12/2023 Comments No Sex and Gender Information Value Date Recorded Sex Assigned at Not on file Legal Sex Female 6:20 PM EDT Gender Identity Not on file Sexual Orientation Not on file documented as of this encounter Last Filed Vital Signs Vital Sign Reading Time Taken Comments Blood Pressure 119/72 01/26/2024 2:14 PM EDT Pulse 87 01/26/2024 2:14 PM EDT Temperature 36.8 ??C (98.3 ??F) 01/26/2024 2:14 PM ED T Respiratory Rate 16 01/26/2024 2:14 PM EDT Oxygen Saturation 96% 01/26/2024 2:14 PM EDT Inhaled Oxygen Concentration - - Weight 125 kg (274 lb 11.1 oz) 01/26/2024 2:14 P M EDT Height 165.1 cm (5' 5 ) 01/26/2024 2:14 PM EDT Body Mass Index 45.71 01/26/2024 2:14 PM EDT documented in this encounter Miscellaneous Notes * Assessment & Plan Note - Miri Wu MD - 01/26/2024 3:05 PM EDT Associated Problem(s): Routine follow-up (Resolved 07/15/2024) - normal exam - incision healing well - declines contraception - will need pap when she turns 19 yo - RTC for annual with pap * Progress Notes - Miri Wu MD - 01/26/2024 1:45 PM EDT Progress Note Subjective 18yo s/p P C/S on 12/14/23 at 38w2d for macrosomia here today for 6 week visit. She is doing well today. Pain controlled. Lochia normal. Normal bowel and bladder function. Mood is good. Bottle feeding. No other concerns today. Declines contraception. Objective Visit Vitals BP 119/72 Pulse 87 Temp 36.8 ??C (98.3 ??F) (Oral) Resp 16 Physical Exam Constitutional: Appearance: Normal appearance. HENT: Head: Normocephalic and atraumatic. Cardiovascular: Rate and Rhythm: Normal rate and regular rhythm. Pulmonary: Effort: Pulmonary effort is normal. Abdominal: General: There is no distension. Palpations: Abdomen is soft. Tenderness: There is no abdominal tenderness. Comments: Incision c/d/I Neurological: General: No focal deficit present. Mental Status: She is alert and oriented to person, place, and time. Psychiatric: Mood and Affect: Mood normal. Behavior: Behavior normal. Vitals reviewed. Assessment/Plan Problem List Items Addressed This Visit Routine follow-up - Primary - normal exam - incision healing well - declines contraception - will need pap when she turns 19 yo - RTC for annual with pap Time Spent: I personally spent a total of 23 minutes on this encounter. This time includes face to face with patient, counseling and discussion and/or coordination of care. documented in this encounter Plan of Treatment Upcoming Encounters Date Type Department Care Team (Late st Contact Info) Description 08/01/2024 10:45 AM EST Routine [facility] [address] [place] [address] Chris Olguin MD [address] [place] [address] documented as of this encounter Visit Diagnoses Diagnosis Routine follow-up- Primary documented in this encounter Additional Health Concerns Assessment Noted Time A fall risk assessment has been complete d for the patient 12/28/2023 11:31 AM EDT A Body Mass Index follow-up plan has been documented for the patient 01/26/2024 6:20 PM EDT documented as of this encounter Care Teams Assembling Motor Builder Relationship Specialty Start Date End Date Waldemar Baltazar MD [address] [place] [address] PCP - General 01/06/23 Waldemar Baltazar MD [address] [place] [address] (work) 01/06/23 documented as of this encounter
--- OUTSIDE RECORDS SUMMARY | 2024-07-18 08:32 | XMS_ITS | Encounter Summary ---
Author Organization [facility] Address [address] [place] [address] Care Team Providers Care Concrete Polisher Name Role Phone Waldemar Baltazar MD Primary Care Provider [phone] Waldemar Baltazar MD Unavailable [phone] Encounter Details Date Type Department Care Team (Latest Contact Info) Description 07/15/2024 Travel Social History Tobacco Use Types Packs/Day Years Used Date Smoking Tobacco: Never Smokeless Tobacco: Never Alcohol Use Standard Drinks/Week Comments Never 0 (1 standard drink = 0.6 oz pur e alcohol) PHQ-2 Answer Date Recorded Patient Health Questionnaire-2 Score 0 12/28/2023 [place] Depression Scale Answer Date Recorded [place] Depression Scale Total 0 01/26/2024 The thought [...] AM EST Routine Obstetrics & Gynecology [address] [place] [address] Chris Olguin MD [address] [place] [address] documented as of this encounter Visit Diagnoses Not on filedocumented in this encounter Additional Health Concerns Assessment Noted Time A fall risk assessment has been complete d for the patient 07/15/2024 10:02 AM EST A Body Mass Index follow-up plan has been documented for the patient 07/15/2024 11:08 AM EST documented as of this encounter Care Teams Concrete Polisher Relationship Specialty Start Date End Date Waldemar Baltazar MD [address] [place] [address] PCP - General 01/06/23 Waldemar Baltazar MD [address] [place] [address] 01/06/23 documented as of this encounter
--- OUTSIDE RECORDS SUMMARY | 2024-07-18 08:32 | XMS_ITS | Encounter Summary ---
Author Organization [facility] Address [address] [place] [address] Care Team Providers Care Zanjero Name Role Phone Waldemar Baltazar MD Primary Care Provider Waldemar Baltazar MD Unavailable [phone] Encounter Details Date Type Department Care Team (Late st Contact Info) Description 07/03/2024 Orders Only Obstetrics & Gynecology [address] [place] [address] Miri Wu MD [address] [place] [address] Social History Tobacco Use Types Packs/Day Years Used Date Smoking Tobacco: Never Smokeless Tobacco: Never Alcohol Use Standard Drinks/Week Comments Never 0 (1 standard drink = 0.6 oz pur e alcohol) PHQ-2 Answer Date Recorded Patient Health Questionnaire-2 Score 0 12/28/2023 [place] Depression Scale Answer Date Recorded [place] Depression Scale Total 0 01/26/2024 The thought [...] EST Routine [facility] [address] [place] [address] Chris Olguin MD [address] [place] [address] documented as of this encounter Visit Diagnoses Not on filedocumented in this encounter Additional Health Concerns Assessment Noted Time A fall risk assessment has been complete d for the patient 12/28/2023 11:31 AM EDT A Body Mass Index follow-up plan has been documented for the patient 07/01/2024 11:39 AM EST documented as of this encounter Care Teams Zanjero Relationship Specialty Start Date End Date Waldemar Baltazar MD [address] [place] [address] PCP - General 01/06/23 Waldemar Baltazar MD [address] [place] [address] 01/06/23 documented as of this encounter
--- OUTSIDE RECORDS SUMMARY | 2024-07-18 08:32 | XMS_ITS | Encounter Summary ---
Author Organization [facility] Address [address] [place] [address] Care Team Providers Care Shrimp Pond Laborer Name Role Phone Waldemar Baltazar MD Primary Care Provider [phone] Waldemar Baltazar MD Unavailable [phone] Encounter Details Date Type Department Care Team (Latest Contact Info) Description 07/01/2024 Travel Social History Tobacco Use Types Packs/Day Years Used Date Smoking Tobacco: Never Smokeless Tobacco: Never Alcohol Use Standard Drinks/Week Comments Never 0 (1 standard drink = 0.6 oz pur e alcohol) PHQ-2 Answer Date Recorded Patient Health Questionnaire-2 Score 0 12/28/2023 [place] Depression Scale Answer Date Recorded [place] Depression Scale Total 0 01/26/2024 The thought [...] EST Routine [facility] [address] [place] [address] Chris Olguin MD [address] [place] [address] documented as of this encounter Visit Diagnoses Not on filedocumented in this encounter Additional Health Concerns Assessment Noted Time A fall risk assessment has been complete d for the patient 12/28/2023 11:31 AM EDT A Body Mass Index follow-up plan has been documented for the patient 07/01/2024 11:39 AM EST documented as of this encounter Care Teams Shrimp Pond Laborer Relationship Specialty Start Date End Date Waldemar Baltazar MD [address] [place] [address] PCP - General 01/06/23 Waldemar Baltazar MD [address] [place] [address] 01/06/23 documented as of this encounter
--- OUTSIDE RECORDS SUMMARY | 2024-07-18 08:32 | XMS_ITS | Clinical Summary ---
Author Organization [facility] Address [address] [place] [address] Care Team Providers Care Cut Off Man Name Role Phone Waldemar Baltazar MD Primary Care Provider [phone] Waldemar Baltazar MD Unavailable [phone] Allergies No known active allergies Medications MV-Min-Fe Fum-FA-DHA ( 1 PO) Take by mouth 1 (one) time each day. Active nystatin (Mycostatin) [id number] UNIT/GM powderIndicatio ns:Candidiasis Apply topically 3 (three) times a day. 15 g 2 4 Active progesterone (Prometrium) 200 MG capsule Take 1 capsule (200 mg) by mouth 1 (one) time each day. 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 Assessment & Plan (02/20/2023 3:57 PM EDT): - TVUS: normal pelvic anatomy - RPL labs today - continue vitamin - will call with results Estimated Date of Delivery Comme nts Yes 03/04/2025 Based on last me nstrual period of 05/28/2024 Resolved Problems Problem Noted Date Diagnosed Date Resolved Date Candidiasis 12/28/2023 01/26/2024 Routine follow-up 12/28/2023 07/15/2024 Assessment & Plan (01/26/2024 3:05 PM EDT): - normal exam - incision healing well - declines contraception - will need pap when she turns 19 yo - RTC for annual with pap Assessment & Plan (12/28/2023 7:43 PM EDT): - normal exam - incision healing well, some yeast under incision, nystatin powder Rx sent - discuss contraception at next visit - RTC 4 weeks Excessive growth affec ting management of in third trimester 12/06/2023 12/28/19 24 state, incidental 05/03/2023 0 12/28/2023 Assessment & Plan (08/09/2023 3:26 PM EST): - US today: limited normal anatomy, all measurements above 90% - continue PNV and baby ASA - Glucola & CBC at next appt - RTC 4 weeks Assessment & Plan (07/12/2023 1:34 PM EST): - labs reviewed, NIPT low risk female - continue PNV and baby ASA - okay to stop progesterone - has already had flu shot this year - ilya US scheduled - RTC 4 weeks Assessment & Plan (06/14/2023 3:18 PM EDT): - labs reviewed - normal NT today, NIPT today - continue PNV - start baby ASA today for pre-eclampsia prevention - ilya US ordered - RTC 4 weeks Assessment & Plan (05/10/2023 2:39 PM EDT): - TVUS: viable intrauterine , bell at 7w2d vs. Twins at 6w4d? Difficult to assess. - repeat US in 1 week with formal ultrasound with director of recruitment to determine bell vs. Twins. Assessment & Plan (05/03/2023 3:58 PM EDT): - labs today - US shows viable SIUP with CRL not c/w LMP, changes MYLES to 12/26/23 - continue PNV - new OB backpack given - RTC 1 week for viability US Missed 01/06/2023 05/03/2023 Assessment & Plan (01/18/2023 10:59 AM EDT): - Labs: Blood type: O+ B-hcg 12/20/228 --> 01/05/23 2933 --> 01/11/23 412 - Imaging: TVUS at [facility] on 01/05/23: single IUP without cardiac activity measuring 6w5d suspicious for demise - Rh positive - repeat B-hcG today - we discussed performing recurrent miscarriage labs and ultrasound after this is resolved - recommend continuing PNV - will call with hormone level and plan next steps Assessment & Plan (01/11/2023 4:23 PM EDT): - Labs: Blood type: O+ B-hcg 12/20/222237 --> 01/05/23 2933 - Imaging: TVUS at [facility] on 01/05/23: single IUP without cardiac activity measuring 6w5d suspicious for demise - Rh positive - we discussed that 25% of pregnancies are miscarriages and ~ 50% of the time they are caused by genetic abnormalities - has had vaginal bleeding - will perform T&S and B-hcG today and continue to trend weekly until < 5. - we discussed performing recurrent miscarriage labs and ultrasound after this is resolved - recommend continuing PNV - will call with hormone level Assessment & Plan (01/06/2023 4:44 PM EDT): - Labs: Blood type: O+ B-hcg 12/20/228 --> 01/05/23 2933 - Imaging: TVUS at [facility] on 01/05/23: single IUP without cardiac activity measuring 6w5d suspicious for demise - Discussed that with B-hcG trend and ultrasound that it is concerning for a miscarriage - we discussed the 3 management options for a miscarriage. 1. Expectant management 2. Medical management with cytotec 3. Surgical management with dilation and curettage - Rh positive - we discussed that 25% of pregnancies are miscarriages and ~ 50% of the time they are caused by genetic abnormalities - she would like to try expectant management - if no bleeding by next week, she would like to try cytotec. We discussed that if she does start to have bleeding that we need to perform weekly B-hCG to ensure resolves - we discussed performing recurrent miscarriage labs and ultrasound after this is resolved - she will call us next week for either nurse visit with lab work or for cytotec Encounters Date Type Department Care Team Description 07/15/2024 9:50 AM EST Ancillary Procedure Obstetrics & Gynecology [address] [place] [address] state, incidental 07/15/2024 9:45 AM EST Initial Obstetrics & Gynecology [facility] [place] [address] Miri Wu MD GA: 6w6d 07/15/2024 Travel 07/04/2024 Orders Only Obstetrics & Gynecology [address] [place] [address] Guillaume Rob S Encounter for test, result positive (Primary Dx) 07/03/2024 Orders Only Obstetrics & Gynecology [facility] [place] [address] Miri Wu MD 07/03/2024 Telephone Obstetrics & Gynecology [address] [place] [address] Miri Wu MD 07/01/2024 11:15 AM EST Clinical Support Obstetrics & Gynecology [address] [place] [address] Encounter for test, result positive (Primary Dx) 07/01/2024 Telephone Obstetrics & Gynecology [facility] [place] [address] Miri Wu MD 07/01/2024 Travel 07/01/2024 Telephone Obstetrics & Gynecology [facility] [place] [address] Miri Wu MD from Last 3 Months Immunizations Name Administration Dates Next Due Tdap 10/04/2023 Family History Medical History Relation Name Comments Obesity Father Mother/Father Breast cancer Maternal Grandmother Grandmother Cancer Maternal Grandmother Grandmother Miscarriages / Stillbirths Mother Mother Conversions - Other Other 1 Back pro blem Asthma Other 2 Relation Name Status Comments Father Mother/Father Maternal Grandmother Grandmother Mother Mother Other 1 Other 2 Social History Tobacco Use Types Packs/Day Years Used Date Smoking Tobacco: Never Smokeless Tobacco: Never Tobacco Cessation:Counseling Given: Not Answered Alcohol Use Standard Drinks/Week Comments Never 0 (1 standard drink = 0.6 oz pur e alcohol) PHQ-2 Answer Date Recorded Patient Health Questionnaire-2 Score 0 12/28/2023 [place] Depression Scale Answer Date Recorded [place] Depression Scale Total 0 01/26/2024 The thought [...] on file Sexual Orientation Not on file Last Filed Vital Signs Vital Sign Reading Time Taken Comments Blood Pressure 121/76 07/15/2024 9:59 AM EST Pulse 87 01/26/2024 2:14 PM EDT Temperature 36.8 ??C (98.3 ??F) 01/26/2024 2:14 PM ED T Respiratory Rate 16 07/15/2024 9:59 AM EST Oxygen Saturation 96% 01/26/2024 2:14 PM EDT Inhaled Oxygen Concentration - - Weight 124 kg (273 lb 5.9 oz) 07/15/2024 9:59 AM EST Height 165.1 cm (5' 5 ) 07/15/2024 9:59 AM EST Body Mass Index 45.49 07/15/2024 9:59 AM EST Plan of Treatment Upcoming Encounters Date Type Department Care Team (Late st Contact Info) Description 08/01/2024 10:45 AM EST Routine Obstetrics & Gynecology [address] [place] [address] Chris Olguin MD [address] [place] [address] Health Maintenance Due Date Last Done Comments [facility]-/Child/Adol SDOH Screenings 2003 [facility]-HPV Vaccines (3 - 2-dose series) 03/09/2015 11/11/2014, 09/09/2014 [facility]- SDOH Screenings 2021 [facility]-Adult SDOH Screenings 2021 [facility]-Pap Smear 02/27/2024 [id number] Vaccine ( season) 2024 03/09/2022, 08/18/2021, 07/28/2021 [facility]-Influenza Vaccine (#1) 2024 08/13/2019, [facility]-Depression Screening 01/25/2025 01/26/2024, 09/2023 [facility]-Chlamydia and Gonorrhea Screening 07/15/2025 07/15/2024, 07/15/2024, 05/03/2023, Additional history exists [facility]-DTaP,Tdap,and Td Vaccines (8 - Td or Tdap) 10/04/2033 10/04/2023, 01/30/2014, 04/20/2007, Additional history exists [facility]-Zoster Vaccines (1 of 2) 2053 01/30/2014, 04/20/2007, 06/01/2004 [facility]-Hepatitis B Vaccines Completed 004, 2003, 2003 [facility]-Hepatitis A Vaccines Completed 07/17/2008, 03/29 [facility]-Varicella Vaccines Completed 4, 04/20/2007, 06/01/2004 [facility]-HIV Screening Completed 07/15/2024, 05/03/2023 [facility]-Hepatitis C Screening Completed 07/15/2024, 01/2023 [facility]-Obesity Intervention Completed 024, 07/01/2024, 01/26/2024, Additional history exists [facility]-HIB Vaccines Aged Out No longer e ligible based on patient's age to complete this topic [facility]-IPV Vaccines Aged Out No longer e ligible based on patient's age to complete this topic [facility]-Pneumococcal Vaccine: Pediatrics (0 to 5 Years) and At-Risk Patients (6 to 64 Years) Aged Out No longer eligible based on patient's age to complete this topic [facility]-RSV Vaccine: 60+ Years or (No Doses Required) Completed [facility]-Rotavirus Vaccines Aged Out No lo nger eligible based on patient's age to complete this topic Procedures Procedure Name Priority Date/Time Associated Diagnosis Comments TSH REFLEX FT4 Routine 07/15/2024 2:00 PM EST state, incidental EXTRA TUBE LIGHT GREEN TOP Routine 07/15/2024 2:00 PM EST state, incidental EXTRA TUBES Routine 07/15/2024 2:00 PM EST state, incidental HIV 1/2 ANTIBODY/ANTIGEN SCREEN WITH REFLEX TO HIV I/II DIFFERENTIATION Routine 07/15/2024 10:23 AM EST state, incidental TREPONEMA PALLIDUM (SYPHILIS) ANTIBODIES WITH REFLEX TO RPR AND RPR TITER (THOSE WITH NO KNOWN SYPHILIS) Routine 07/15/2024 10:23 AM EST state, incidental HEPATITIS C ANTIBODY W/REFLEX TO HCV QUANT PCR Routine 07/15/2024 10:23 AM EST state, incidental HEPATITIS B SURFACE ANTIGEN Routine 07/15/2024 10:23 AM EST state, incidental HIV 1/2 ANTIBODY/ANTIGEN SCREEN W/REFLEX TO HIV 1/2 ANTIBODY DIFFERENTIATION Routine 07/15/2024 10:23 AM EST state, incidental DRUG ABUSE SCREEN, URINE Routine 07/15/2024 10:23 AM EST state, incidental RUBELLA ANTIBODY IGG Routine 07/15/2024 10:23 AM EST state, incidental TYPE AND SCREEN Routine 07/15/2024 10:23 AM EST state, incidental CBC W/O DIFFERENTIAL Routine 07/15/2024 10:23 AM EST state, incidental NEISSERIA GONORRHEA DNA BY PCR Routine 07/15/2024 10:23 AM EST state, incidental CHLAMYDIA TRACHOMATIS DNA BY PCR Routine 07/15/2024 10:23 AM EST state, incidental URINE CULTURE Routine 07/15/2024 10:23 AM EST state, incidental US PELVIS TRANSVAGINAL Routine 9:49 AM EST state, incidental OTHER GROUP Routine 07/04/2024 2:34 PM EST PROGESTERONE III Routine 07/01/2024 11:1 8 AM EST Encounter for test, result positive HCG, QUANTITATIVE Routine 07/01/2024 11: 12 AM EST Encounter for test, result positive from Last 3 Months Results * TSH Reflex FT4 (07/15/2024 2:00 PM EST) Thyroid Stimulating Hormone, Plasma 1.49 0.40 - 4.20 uIU/mL 07/16/2024 5:31 AM EST [facility] Blood Venous blood specimen / Unknown Venipuncture / Unknown 07/15/2024 2:00 PM EST 07/15/2024 2:01 PM EST Narrative [facility] - 07/16/2024 5:31 AM EST Trimester Specific Ranges ?TSH (??IU/mL) 1st Trimester ??0.1 ??- 3.0 2nd Trimester ??0.19 - 4.06 3rd Trimester ??0.3 ??- 3.7 us Miri Wu MD LAB BLOOD ORDERABLES Fin al Result Performing Organization Address City/[facility]/ZIP Co de Phone Number [facility] [address] [place] [address] * Light Green Top (07/15/2024 2:00 PM EST) [facility] Extra Hold for add-ons 07/15/2024 4:01 PM EST [facility] Comment:Auto resulted. Blood Venous blood specimen / Unknown Venipuncture / Unknown 07/15/2024 2:00 PM EST 07/15/2024 2:01 PM EST Miri Wu MD LAB BLOOD ORDERABLES Fin al Result Performing Organization Address [facility] de Phone Number [facility] [address] [place] [address] * Treponema Pallidum (Syphilis) Antibodies with Reflex to RPR and RPR Titer (Those with NO known Syphilis) (07/15/2024 10:23 AM EST) [facility] Syphilis Antibody (IgG+IgM) Nonreactive Nonreactive 07/15/2024 3:21 PM EST [facility] Comment:Nonreactive. No sero logic evidence of syphilis. No follow-up necessary unless clinically indicated (e.g., early syphilis). Blood Venous blood specimen / Unknown Venipuncture / Unknown 07/15/2024 10:23 AM EST 07/15/2024 2:07 PM EST Miri Wu MD LAB BLOOD ORDERABLES Fin al Result Performing Organization Address City/[facility] Co de Phone Number [facility] [address] [place] [address] * Chlamydia trachomatis DNA by PCR (07/15/2024 10:23 AM EST) [facility] Chlamydia trachomatis DNA PCR Result Not Detected Not Detected 07/16/2024 10:58 AM EST [facility] Urine Urine specimen / Unknown Non-blood Collection / Unknown 07/15/2024 10:23 AM EST 07/15/2024 2:33 PM EST Narrative [facility] - 07/16/2024 10:58 AM EST This test is performed by the [employer] m2000 instrument for Real Time PCR C. trachomatis and N. gonorrhea. This test is FDA approved for use with endocervical, vaginal, and urine specimens. This test is used for clinical purposes. It should not be regarded as invesigational or for research. The [facility] Clinical Microbiology Laboratory is certified under the Clinical Laboratory Improvement Amendments of 1988 (CLIA-88) as qualified to perform high complexity clinical laboratory testing. Miri Wu MD LAB MICROBIOLOGY - GENER AL ORDERABLES Final Result Performing Organization Address City/[facility]/ZIP Co de Phone Number [facility] [address] [place] [address] * HIV 1 & 2 Antibody/Antigen Screen (07/15/2024 10:23 AM EST) HIV 1 & 2 Antibody/Antigen Screen Non Reactive Non Reactive 07/15/2024 2:39 PM EST [facility] Comment:Screening for HIV 1 & 2 antibodies, and P24 antigen is NONREACTIVE. No confirmatory testing is required. Blood Venous blood specimen / Unknown Venipuncture / Unknown 07/15/2024 10:23 AM EST 07/15/2024 2:06 PM EST Miri Wu MD LAB BLOOD ORDERABLES Fin al Result Performing Organization Address City/[facility]/ZIP Co de Phone Number [facility] [address] [place] [address] * Hepatitis C Antibody (07/15/2024 10:23 AM EST) Hepatitis C Antibody Negative Negative 07/15/2024 2:39 PM EST [facility] Blood Venous blood specimen / Unknown Venipuncture / Unknown 07/15/2024 10:23 AM EST 07/15/2024 2:07 PM EST Miri Wu MD LAB BLOOD ORDERABLES Fin al Result Performing Organization Address City/[facility]/ZIP Co de Phone Number [facility] [address] [place] [address] * Drug Abuse Screen, Urine (07/15/2024 10:23 AM EST) Amphetamine Screen Urine Negative Cutoff: 500 ng/mL 07/15/2024 2:33 PM EST [facility] Benzodiazepines Screen Urine Negative Cutoff: 200 ng/mL 07/15/2024 2:33 PM EST [facility] Cannabinoid Screen Urine Negative Cutoff: 50 ng/mL 07/15/2024 2:33 PM EST [facility] Cocaine Screen Urine Negative Cutoff: 300 ng/mL 07/15/2024 2:33 PM EST [facility] Barbiturate Screen Urine Negative Cutoff: 200 ng/mL 07/15/2024 2:33 PM EST [facility] Opiate Screen Urine Negative Cutoff: 300 ng/mL 07/15/2024 2:33 PM EST [facility] Methadone Screen Urine Negative Cutoff: 300 ng/mL 07/15/2024 2:33 PM EST [facility] Buprenorphine Screen Urine Negative Cutoff: 10 ng/mL 07/15/2024 2:33 PM EST [facility] Fentanyl Screen Urine Negative Cutoff: 1 ng/mL 07/15/2024 2:33 PM EST [facility] Oxycodone Screen Urine Negative Cutoff: 100 ng/mL 07/15/2024 2:33 PM EST [facility] Urine Urine specimen obtained by clean catch procedure / Unknown Non-blood Collection / Unknown 07/15/2024 10:23 AM EST 07/15/2024 2:01 PM EST us Mrii Wu MD LAB URINE ORDERABLES Fin al Result [facility] [address] [place] [address] * Neisseria gonorrhea DNA by PCR (07/15/2024 10:23 AM EST) Neisseria gonorrhea DNA PCR Result Not Detected Not Detected. 07/16/2024 10:58 AM EST [facility] Urine Urine specimen / Unknown Non-blood Collection / Unknown 07/15/2024 10:23 AM EST 07/15/2024 2:33 PM EST Narrative [facility] - 07/16/2024 10:58 AM EST This test is performed by the [employer] m2000 instrument for Real Time PCR C. trachomatis and N. gonorrhea. This test is FDA approved for use with endocervical, vaginal, and urine specimens. This test is used for clinical purposes. It should not be regarded as invesigational or for research. The [facility] Clinical Microbiology Laboratory is certified under the Clinical Laboratory Improvement Amendments of 1988 (CLIA-88) as qualified to perform high complexity clinical laboratory testing. Miri Wu MD LAB MICROBIOLOGY - GENER AL ORDERABLES Final Result Performing Organization Address [facility] Co de Phone Number [facility] [address] [place] [address] * Rubella IgG (07/15/2024 10:23 AM EST) Rubella Antibody IgG Negative Negative 07/15/2024 3:46 PM EST [facility] Comment: Rubella IgG Result Interpretation: ? Negative: No IgG antibody specific to the rubella virus detected. ??Patient is presumed not to have had a previous exposure to rubella through infection or vaccination. Equivocal: Serologic status cannot be determined. ??Repeat testing in 10-14 days may be helpful. Positive: IgG antibody specific to rubella detected. ??IgG antibody levels are at a level considered to indicate positive immunity through infection or vaccination. Blood Venous blood specimen / Unknown Venipuncture / Unknown 07/15/2024 10:23 AM EST 07/15/2024 2:07 PM EST iMri Wu MD LAB BLOOD ORDERABLES Fin al Result Performing Organization Address [facility] Co de Phone Number [facility] [address] [place] [address] * Hepatitis B surface Ag (07/15/2024 10:23 AM EST) Hepatitis B Surf Antigen Negative Negative 07/15/2024 3:21 PM EST [facility] Blood Venous blood specimen / Unknown Venipuncture / Unknown 07/15/2024 10:23 AM EST 07/15/2024 2:07 PM EST us Miri Wu MD LAB BLOOD ORDERABLES Fin al Result [facility] [address] [place] [address] * (ABNORMAL) CBC W/O Differential (07/15/2024 10:23 AM EST) WBC Count 6.07 3.70 - 10.30 10*3/uL LAB HEMATOLOGY METHOD 07/15/2024 2:19 PM EST [facility] RBC Count 4.69 3.90 - 5.20 10*6/uL LAB HEMATOLOGY METHOD 07/15/2024 2:19 PM EST [facility] HGB 13.3 11.2 - 15.7 g/dL LAB HEMATOLOGY METHOD 07/15/2024 2:19 PM EST [facility] HCT 41.4 34.0 - 45.0 % LAB HEMATOLOGY METHOD 07/15/2024 2:19 PM EST [facility] Platelet Count 273 155 - 369 10*3/uL LAB HEMATOLOGY METHOD 07/15/2024 2:19 PM EST [facility] MCV 88 79 - 98 fL LAB HEMATOLOGY METHOD 07/15/2024 2:19 PM EST [facility] MCH 28.4 26.0 - 32.0 pg LAB HEMATOLOGY METHOD 07/15/2024 2:19 PM EST [facility] MCHC 32.1 30.7 - 35.5 g/dL LAB HEMATOLOGY METHOD 07/15/2024 2:19 PM EST [facility] RDW 14.8(H) 11.5 - 14.5 % LAB HEMATOLOGY METHOD 07/15/2024 2:19 PM EST [facility] MPV 10.6 8.8 - 12.5 fL LAB HEMATOLOGY METHOD 07/15/2024 2:19 PM EST [facility] nRBC 0.0 <=0.0 per 100 WBCs LAB HEMATOLOGY METHOD 07/15/2024 2:19 PM EST [facility] Blood Venous blood specimen / Unknown Venipuncture / Unknown 07/15/2024 10:23 AM EST 07/15/2024 2:06 PM EST Miri Wu MD LAB BLOOD ORDERABLES Fin al Result Performing Organization Address [facility] Co de Phone Number [facility] [address] [place] [address] * Type and Screen (07/15/2024 10:23 AM EST) ABO/Rh O Positive 07/14/2024 7:00 PM EST [facility] Antibody Screen Negative 07/14/2024 7:00 PM EST [facility] Specimen Expiration 07/18/2024 23:59 07/14/2024 7:00 PM EST [facility] Blood Venous blood specimen / Unknown Venipuncture / Unknown 07/15/2024 10:23 AM EST 07/15/2024 2:27 PM EST Miri Wu MD LAB BLOOD BANK TEST ORDE RABLES Final Result Performing Organization Address [facility] de Phone Number BLOOD BANK [address] [place] [address], * Urine culture (07/15/2024 10:23 AM EST) Culture <10,000 CFU/mL Mixed urogenital, fecal, or skin kay present. 07/17/2024 10:32 AM EST [facility] Urine Urine specimen obtained by clean catch procedure / Unknown Non-blood Collection / Unknown 07/15/2024 10:23 AM EST 07/15/2024 2:33 PM EST Miri Wu MD LAB MICROBIOLOGY - GENER AL ORDERABLES Final Result Performing Organization Address City/[facility] Co de Phone Number [facility] [address] [place] [address] * US Pelvis Transvaginal (07/15/2024 9:49 AM EST) Anatomical Region Laterality Modality Pelvis Ultrasound 07/15/2024 10:0 6 AM EST Impressions 07/16/2024 2:03 PM EST The OB Ultrasound you requested has been resulted. Please navigate to the Imaging tab in [employer] for review. This message has been generated by the interface. Narrative Procedure Note Miri Wu MD - 07/16/2024 IMPRESSION: The OB Ultrasound you requested has been resulted. Please navigate to theImaging tab in [employer] for review. This message has been generated by theinterface. us Miri Wu MD IMG US PROCEDURES Final Result * Other Group (07/04/2024 2:34 PM EST) us Miri Wu MD BEHAVIORAL HEALTH ORDERA BLES Final Result * Progesterone (07/01/2024 11:18 AM EST) Progesterone III 9.44 ng/mL 07/01/20 24 3:12 PM EST [facility] Blood Venous blood specimen / Unknown Venipuncture / Unknown 07/01/2024 11:18 AM EST 07/01/2024 1:12 PM EST Narrative [facility] - 07/01/2024 3:12 PM EST Menstrual Cycle Phase Reference Intervals: Females, 18 Y and up (ng/mL) Follicular ?<= 0.33 Ovulation ? <= 2.35 Luteal ? 0.5-21 Post-Menopausal <0.2 reference Intervals (ng/mL): 1st Trimester ?11 - 45 2nd Trimester ?25 - 84 3rd Trimester ?58 - 214 us Miri Wu MD LAB BLOOD ORDERABLES Fin al Result [facility] [address] [place] [address] * (ABNORMAL) hCG, Total Beta, Quantitative, Plasma (07/01/2024 11:12 AM EST) hCG, Total Beta 470(H) <5 mIU/mL 07/01/2024 2:07 PM EST [facility] Blood Venous blood specimen / Unknown Venipuncture / Unknown 07/01/2024 11:12 AM EST 07/01/2024 1:13 PM EST Narrative [facility] - 07/01/2024 2:07 PM EST [...] MD LAB BLOOD ORDERABLES Fin al Result [facility] [address] [place] [address] from Last 3 Months Insurance [employer] [id number] [employer] [employer] Care Teams Cut Off Man Relationship Specialty Start Date End Date Waldemar Baltazar MD [address] [place] [address] PCP - General 01/06/23 Waldemar Baltazar MD [address] [place] [address] 01/06/23
--- OUTSIDE RECORDS SUMMARY | 2024-07-18 08:32 | XMS_ITS | Encounter Summary ---
Author Organization [facility] Address [address] [place] [address] Care Team Providers Care Medication Aid Name Role Phone Waldemar Baltazar MD Primary Care Provider Waldemar Baltazar MD Unavailable [phone] Encounter Details Date Type Department Care Team (Late st Contact Info) Description 07/04/2024 Orders Only Obstetrics & Gynecology [address] [place] [address] Rob Galaviz [facility] [address] [phone] Encounter for test, result positive (Primary Dx) Social History Tobacco Use Types Packs/Day Years Used Date Smoking Tobacco: Never Smokeless Tobacco: Never Alcohol Use Standard Drinks/Week Comments Never 0 (1 standard drink = 0.6 oz pur e alcohol) PHQ-2 Answer Date Recorded Patient Health Questionnaire-2 Score 0 12/28/2023 [place] Depression Scale Answer Date Recorded [place] Depression Scale Total 0 01/26/2024 The thought [...] EST Routine [facility] [address] [place] [address] Chris Olguin MD [address] [place] [address] Scheduled Orders Name Type Priority Associated Diagnoses Orde r Schedule hCG, Total Beta, Quantitative, Plasma Lab Routine Encounter for test, result positive Expected: 07/06/2024, Expires: 01/01/2026 documented as of this encounter Procedures Procedure Name Priority Date/Time Associated Diagnosis Comments OTHER GROUP Routine 07/04/2024 2:34 PM EST documented in this encounter Results * Other Group (07/04/2024 2:34 PM EST) Miri Wu MD [facility] ORDERA BLES Final Result documented in this encounter Visit Diagnoses Diagnosis Encounter for test, result positive- Primary documented in this encounter Additional Health Concerns Assessment Noted Time A fall risk assessment has been complete d for the patient 12/28/2023 11:31 AM EDT A Body Mass Index follow-up plan has been documented for the patient 07/01/2024 11:39 AM EST documented as of this encounter Care Teams Medication Aid Relationship Specialty Start Date End Date Waldemar Baltazar MD [address] [place] [address] PCP - General 01/06/23 Waldemar Baltazar MD [address] [place] [address] 01/06/23 documented as of this encounter
--- OUTSIDE RECORDS SUMMARY | 2024-07-18 08:32 | XMS_ITS | Encounter Summary ---
Author Organization [facility] Address [address] [place] [address] Care Team Providers Care Special Class Welder Name Role Phone Waldemar Baltazar MD Primary Care Provider Waldemar Baltazar MD Unavailable [phone] Reason for Visit * Reason Comments Initial Visit Encounter Details Date Type Department Care Team (Late st Contact Info) Description 07/15/2024 9:45 AM EST Initial [facility] [address] [place] [address] Miri Wu MD [address] [place] [address] GA: [id number] Social History Tobacco Use Types Packs/Day Years Used Date Smoking Tobacco: Never Smokeless Tobacco: Never Tobacco Cessation:Counseling Given: Not Answered Alcohol Use Standard Drinks/Week Comments Never 0 (1 standard drink = 0.6 oz pur e alcohol) PHQ-2 Answer Date Recorded Patient Health Questionnaire-2 Score 0 12/28/2023 [place] Depression Scale Answer Date Recorded [place] Depression Scale Total 0 01/26/2024 The thought [...] Pressure 121/76 07/15/2024 9:59 AM EST Pulse - - Temperature - - Respiratory Rate 16 07/15/2024 9:59 AM EST Oxygen Saturation - - Inhaled Oxygen Concentration - - Weight 124 kg (273 lb 5.9 oz) 07/15/2024 9:59 AM EST Height 165.1 cm (5' 5 ) 07/15/2024 9:59 AM EST Body Mass Index 45.49 07/15/2024 9:59 AM EST documented in this encounter Miscellaneous Notes * Progress Notes - Miri Wu MD - 07/15/2024 9:45 AM EST Initial Note Subjective 19yo here today for initial visit. Doing well today. Desired . Some nausea, but says she is okay. No vaginal bleeding. complicated by: - history of c/s x 1 OB History Para Term AB Living 4 1 1 0 2 1 SAB IAB Ectopic Multiple Live Births 2 0 0 1 # Outcome Date GA Lbr U[place]ano/2nd Weight Sex Type Anes PTL Lv 4 Current 3 Term 12/14/23 38w2d 4167 g F CS-LTranv WILMA 2 SAB 06/2022 1 SAB Needs pap Past Medical History She has a past medical history of Recurrent loss, antepartum condition or complication. Past Surgical History She has a past surgical history that includes Other surgical history (N/A) and section, low transverse. Social History She reports that she has never smoked. She has never used smokeless tobacco. She reports that she does not drink alcohol and does not use drugs. Family History Her family history includes Asthma in an other family member; Breast cancer in her maternal grandmother; Cancer in her maternal grandmother; Conversions - Other in an other family member; Miscarriages / Stillbirths in her mother; Obesity in her father. Allergies She has No Known Allergies. Current Medications She has a current medication list which includes the following prescription(s): mv-min-fe fum-fa-dha, progesterone, and nystatin. Review of Systems A 14 point ROS was performed and is negative except noted above in HPI Objective Physical Exam Visit Vitals BP 121/76 Resp 16 Pregravid weight: Pregravid weight not on file Pregravid BMI: Could not be calculated Body mass index is 45.49 kg/m??. See encounter summary and flowsheet for exam details. Gen: NAD, well-appearing CV: RRR, no edema Resp: non-labored respirations Abd: soft, nontender : normal external genitalia TVUS: viable SIUP with CRL c/w LMP, keep MYLES 03/04/25 Assessment/Plan Problem List Items Addressed This Visit state, incidental - Primary Relevant Orders US Pelvis Transvaginal CBC W/O Differential Type and Screen Rubella IgG Urine culture Drug Abuse Screen, Urine Chlamydia trachomatis DNA by PCR HIV 1 & 2 Antibody/Antigen Screen w/Reflex to HIV 1/2 Differentiation Hepatitis B surface Ag Hepatitis C Antibody Neisseria gonorrhea DNA by PCR Treponema Pallidum (Syphilis) Antibodies with Reflex to RPR and RPR Titer (Those with NO known Syphilis) TSH Reflex FT4 History of delivery - labs today - pap - US shows viable SIUP with CRL c/w LMP, keep MYLES 03/04/25 - new OB backpack given - continue vitamin - RTC 2 weeks for viability US Time Spent: I personally spent a total of 35 minutes on this encounter. This time includes face to face with patient, counseling and discussion and/or coordination of care. documented in this encounter Plan of Treatment Upcoming Encounters Date Type Department Care Team (Late st Contact Info) Description 08/01/2024 10:45 AM EST Routine [facility] [address] [place] [address] Chris Olguin MD [address] [place] [address] documented as of this encounter Procedures Procedure Name Priority Date/Time Associated Diagnosis Comments HIV 1/2 ANTIBODY/ANTIGEN SCREEN W/REFLEX TO HIV [...] Routine 07/15/2024 10:23 AM EST state, incidental documented in this encounter Results * HIV 1 & 2 Antibody/Antigen Screen (07/15/2024 10:23 AM EST) HIV 1 & 2 Antibody/Antigen Screen Non Reactive Non Reactive 07/15/2024 2:39 PM EST [facility] Comment:Screening for HIV 1 & 2 antibodies, and P24 antigen is NONREACTIVE. No confirmatory testing is required. Blood Venous blood specimen / Unknown Venipuncture / Unknown 07/15/2024 10:23 AM EST 07/15/2024 2:06 PM EST Miri Wu MD LAB BLOOD ORDERABLES Fin al Result Performing Organization Address [facility] Phone Number [facility] [address] [place] [address] * Treponema Pallidum (Syphilis) Antibodies with Reflex to RPR and RPR Titer (Those with NO known Syphilis) (07/15/2024 10:23 AM EST) Pathologist [facility] Syphilis Antibody (IgG+IgM) Nonreactive Nonreactive 07/15/2024 3:21 PM EST [facility] Comment:Nonreactive. No sero logic evidence of syphilis. No follow-up necessary unless clinically indicated (e.g., early syphilis). Blood Venous blood specimen / Unknown Venipuncture / Unknown 07/15/2024 10:23 AM EST 07/15/2024 2:07 PM EST Miri Wu MD LAB BLOOD ORDERABLES Fin al Result Performing Organization Address [facility] de Phone Number [facility] [address] [place] [address] * Neisseria gonorrhea DNA by PCR (07/15/2024 10:23 AM EST) Pathologist [facility] Neisseria gonorrhea DNA PCR Result Not Detected Not Detected. 07/16/2024 10:58 AM EST [facility] Urine Urine specimen / Unknown Non-blood Collection / Unknown 07/15/2024 10:23 AM EST 07/15/2024 2:33 PM EST Narrative [facility] - 07/16/2024 10:58 AM EST This test is performed by the [employer] instrument for Real Time PCR C. trachomatis and N. gonorrhea. This test is FDA approved for use with endocervical, vaginal, and urine specimens. This test is used for clinical purposes. It should not be regarded as invesigational or for research. The [facility] Clinical Microbiology Laboratory is certified under the Clinical Laboratory Improvement Amendments of 1988 (CLIA-88) as qualified to perform high complexity clinical laboratory testing. Miri Wu MD LAB MICROBIOLOGY - GENER AL ORDERABLES Final Result Performing Organization Address City/[facility]/[place] [address] * Hepatitis C Antibody (07/15/2024 10:23 AM EST) Hepatitis C Antibody Negative Negative 07/15/2024 2:39 PM EST [facility] Blood Venous blood specimen / Unknown Venipuncture / Unknown 07/15/2024 10:23 AM EST 07/15/2024 2:07 PM EST Miri Wu MD LAB BLOOD ORDERABLES Fin al Result Performing Organization Address [facility] Co de Phone Number [facility] [address] [place] [address] * Hepatitis B surface Ag (07/15/2024 10:23 AM EST) Pathologist [facility] Hepatitis B Surf Antigen Negative Negative 07/15/2024 3:21 PM EST [facility] Blood Venous blood specimen / Unknown Venipuncture / Unknown 07/15/2024 10:23 AM EST 07/15/2024 2:07 PM EST Miri Wu MD LAB BLOOD ORDERABLES Fin al Result Performing Organization Address City/[facility] Co de Phone Number [facility] [address] [place] [address] * Chlamydia trachomatis DNA by PCR (07/15/2024 10:23 AM EST) Pathologist [facility] Chlamydia trachomatis DNA PCR Result Not Detected Not Detected 07/16/2024 10:58 AM EST [facility] Urine Urine specimen / Unknown Non-blood Collection / Unknown 07/15/2024 10:23 AM EST 07/15/2024 2:33 PM EST [facility] - 07/16/2024 10:58 AM EST This test is performed by the [employer] m2000 instrument for Real Time PCR C. trachomatis and N. gonorrhea. This test is FDA approved for use with endocervical, vaginal, and urine specimens. This test is used for clinical purposes. It should not be regarded as invesigational or for research. The [facility] Clinical Microbiology Laboratory is certified under the Clinical Laboratory Improvement Amendments of 1988 (CLIA-88) as qualified to perform high complexity clinical laboratory testing. us Miri Wu MD LAB MICROBIOLOGY - GENER AL ORDERABLES Final Result [facility] [address] [place] [address] * Drug Abuse Screen, Urine (07/15/2024 10:23 AM EST) Amphetamine Screen Urine Negative Cutoff: 500 ng/mL 07/15/2024 2:33 PM EST [facility] Benzodiazepines Screen Urine Negative Cutoff: 200 ng/mL 07/15/2024 2:33 PM EST [facility] Cannabinoid Screen Urine Negative Cutoff: 50 ng/mL 07/15/2024 2:33 PM EST [facility] Cocaine Screen Urine Negative Cutoff: 300 ng/mL 07/15/2024 2:33 PM EST [facility] Barbiturate Screen Urine Negative Cutoff: 200 ng/mL 07/15/2024 2:33 PM EST [facility] Opiate Screen Urine Negative Cutoff: 300 ng/mL 07/15/2024 2:33 PM EST [facility] Methadone Screen Urine Negative Cutoff: 300 ng/mL 07/15/2024 2:33 PM EST [facility] Buprenorphine Screen Urine Negative Cutoff: 10 ng/mL 07/15/2024 2:33 PM EST [facility] Fentanyl Screen Urine Negative Cutoff: 1 ng/mL 07/15/2024 2:33 PM EST [facility] Oxycodone Screen Urine Negative Cutoff: 100 ng/mL 07/15/2024 2:33 PM EST [facility] Urine Urine specimen obtained by clean catch procedure / Unknown Non-blood Collection / Unknown 07/15/2024 10:23 AM EST 07/15/2024 2:01 PM EST Miri Wu MD LAB URINE ORDERABLES Fin al Result Performing Organization Address City/[facility] Co de Phone Number [facility] [address] [place] [address] * Urine culture (07/15/2024 10:23 AM EST) Culture <10,000 CFU/mL Mixed urogenital, fecal, or skin kay present. 07/17/2024 10:32 AM EST [facility] Urine Urine specimen obtained by clean catch procedure / Unknown Non-blood Collection / Unknown 07/15/2024 10:23 AM EST 07/15/2024 2:33 PM EST Miri Wu MD LAB MICROBIOLOGY - GENER AL ORDERABLES Final Result Performing Organization Address [facility] de Phone Number [facility] [address] [place] [address] * Rubella IgG (07/15/2024 10:23 AM EST) Rubella Antibody IgG Negative Negative 07/15/2024 3:46 PM EST [facility] Comment: Rubella IgG Result Interpretation: ? Negative: [...] ORDERABLES Fin al Result Performing Organization Address City/[facility] Co de Phone Number [facility] [address] [phone] * Type and Screen (07/15/2024 10:23 AM EST) ABO/Rh O Positive 07/14/2024 7:00 PM EST [facility] Antibody Screen Negative 07/14/2024 7:00 PM EST [facility] Specimen Expiration 07/18/2024 23:59 07/14/2024 7:00 PM EST [facility] Blood Venous blood specimen / Unknown Venipuncture / Unknown 07/15/2024 10:23 AM EST 07/15/2024 2:27 PM EST us Miri Wu MD LAB BLOOD BANK TEST ORDE PHANI Final Result BLOOD BANK [address] [place] [address], * (ABNORMAL) CBC W/O Differential (07/15/2024 10:23 AM EST) WBC Count 6.07 3.70 - 10.30 10*3/uL LAB HEMATOLOGY METHOD 07/15/2024 2:19 PM EST [facility] RBC Count 4.69 3.90 - 5.20 10*6/uL LAB HEMATOLOGY METHOD 07/15/2024 2:19 PM EST [facility] HGB 13.3 11.2 - 15.7 g/dL LAB HEMATOLOGY METHOD 07/15/2024 2:19 PM EST [facility] HCT 41.4 34.0 - 45.0 % LAB HEMATOLOGY METHOD 07/15/2024 2:19 PM EST [facility] Platelet Count 273 155 - 369 10*3/uL LAB HEMATOLOGY METHOD 07/15/2024 2:19 PM EST [facility] MCV 88 79 - 98 fL LAB HEMATOLOGY METHOD 07/15/2024 2:19 PM EST [facility] MCH 28.4 26.0 - 32.0 pg LAB HEMATOLOGY METHOD 07/15/2024 2:19 PM EST [facility] MCHC 32.1 30.7 - 35.5 g/dL LAB HEMATOLOGY METHOD 07/15/2024 2:19 PM EST [facility] RDW 14.8(H) 11.5 - 14.5 % LAB HEMATOLOGY METHOD 07/15/2024 2:19 PM EST [facility] MPV 10.6 8.8 - 12.5 fL LAB HEMATOLOGY METHOD 07/15/2024 2:19 PM EST [facility] nRBC 0.0 <=0.0 per 100 WBCs LAB HEMATOLOGY METHOD 07/15/2024 2:19 PM EST [facility] Blood Venous blood specimen / Unknown Venipuncture / Unknown 07/15/2024 10:23 AM EST 07/15/2024 2:06 PM EST us Miri Wu MD LAB BLOOD ORDERABLES Fin al Result Performing Organization Address City/State/[facility] Co de Phone Number [facility] [address] [place] [address] * US Pelvis Transvaginal (07/15/2024 9:49 AM EST) Anatomical Region Laterality Modality Pelvis Ultrasound 07/15/2024 10:0 6 AM EST Impressions 07/16/2024 2:03 PM EST The OB Ultrasound you requested has been resulted. Please navigate to the Imaging tab in Synchro for review. This message has been generated by the interface. Narrative Procedure Note Miri Wu MD - 07/16/2024 IMPRESSION: The OB Ultrasound you requested has been resulted. Please navigate to theImaging tab in Synchro for review. This message has been generated by theinterface. us Miri Wu MD IMG US PROCEDURES Final Result documented in this encounter Visit Diagnoses Diagnosis state, incidental- Primary History of delivery state, incidental documented in this encounter Additional Health Concerns Assessment Noted Time A fall risk assessment has been complete d for the patient 07/15/2024 10:02 AM EST A Body Mass Index follow-up plan has been documented for the patient 07/15/2024 11:08 AM EST documented as of this encounter Care Teams Special Class Welder Relationship Specialty Start Date End Date Waldemar Baltazar MD [address] [place] [id number] PCP - General 01/06/23 Waldemar Baltazar MD [address] [place] [address] 01/06/23 documented as of this encounter
--- OUTSIDE RECORDS SUMMARY | 2024-07-18 08:32 | XMS_ITS | Encounter Summary ---
Author Organization [facility] Address [address] [place] [address] Care Team Providers Care Application Development Project Manager Name Role Phone Waldemar Baltazar MD Primary Care Provider [phone] Waldemar Baltazar MD Unavailable [phone] Encounter Details Date Type Department Care Team (Latest Contact Info) Description 01/26/2024 Travel Social History Tobacco Use Types Packs/Day Years Used Date Smoking Tobacco: Never Smokeless Tobacco: Never Alcohol Use Standard Drinks/Week Comments Never 0 (1 standard drink = 0.6 oz pur e alcohol) PHQ-2 Answer Date Recorded Patient Health Questionnaire-2 Score 0 12/28/2023 [place] Depression Scale Answer Date Recorded [place] Depression Scale Total 0 01/26/2024 The thought [...] EST Routine [facility] [address] [place] [address] Chris Olguin MD [address] [place] [address] documented as of this encounter Visit Diagnoses Not on filedocumented in this encounter Additional Health Concerns Assessment Noted Time A fall risk assessment has been complete d for the patient 12/28/2023 11:31 AM EDT A Body Mass Index follow-up plan has been documented for the patient 01/26/2024 6:20 PM EDT documented as of this encounter Care Teams Application Development Project Manager Relationship Specialty Start Date End Date Waldemar Baltazar MD [address] [place] [id number] PCP - General 01/06/23 Waldemar Baltazar MD [address] [place] [address] 01/06/23 documented as of this encounter
--- OUTSIDE RECORDS SUMMARY | 2024-07-18 08:33 | XMS_ITS | Encounter Summary ---
Author Organization [facility] Address [address] [place] [address] Care Team Providers Care Cath Lab Manager Name Role Phone Waldemar Baltazar MD Primary Care Provider Waldemar Baltazar MD Unavailable [phone] Encounter Details Date Type Department Care Team (Late st Contact Info) Description 10/18/2023 2:15 PM EST Routine Obstetrics & Gynecology [address] [place] [address] Chris Olguin MD [address] [place] [address] 30 weeks gestation of (Primary Dx) Social History Tobacco Use Types Packs/Day Years Used Date Smoking Tobacco: Never Smokeless Tobacco: Never Alcohol Use Standard Drinks/Week Comments Never 0 (1 standard drink = 0.6 oz pur e alcohol) PHQ-2 Answer Date Recorded Patient Health Questionnaire-2 Score 0 10/18/2023 PHQ-2A Answer Date Recorded Patient Health Questionnaire-2 Score 0 07/12/2023 Comments Yes Sex and Gender Information Value Date Recorded Sex Assigned at Not on file Legal Sex Female 6:20 PM EDT Gender Identity Not on file Sexual Orientation Not on file documented as of this encounter Last Filed Vital Signs Vital Sign Reading Time Taken Comments Blood Pressure 125/75 10/18/2023 2:05 PM EST Pulse - - Temperature - - Respiratory Rate - - Oxygen Saturation - - Inhaled Oxygen Concentration - - Weight 141 kg (310 lb 10.1 oz) 10/18/2023 2:05 P M EST Height - - Body Mass Index 51.69 02/20/2023 3:34 PM EDT documented in this encounter Miscellaneous Notes * Progress Notes - Chris Olguin MD - 10/18/2023 2:15 PM EST Subjective No chief complaint on file. Reid Domingo is a 18 y.o. at 30w1d with a working estimated date of delivery of 12/26/2023, by Ultrasound who presents for a routine visit. She denies vaginal bleeding, leakage of fluid, decreased movements, or contractions. Her is complicated by: HG The following portions of the chart were reviewed this encounter and updated as appropriate: ALL Objective Physical Exam Weight: 141 kg (310 lb 10.1 oz) Expected Total Weight Gain: 5 kg (11 lb)-9 kg (19 lb) Pregravid BMI: 47.33 BP: 125/75 Heart Rate: 140 Fundal Height (cm): 37 cm Labs Urine dip: NA HGB (g/dL) Date/Time Value 09/06/2023 1051 12.2 HCT (%) Date/Time Value 09/06/2023 1051 38.3 ABO/Rh (no units) Date/Time Value 05/03/2023 1553 O Positive Hepatitis B Surf Antigen (no units) Date/Time Value 05/03/2023 1553 Negative No results found for: PAPPA , AFP , HCG , ESTRIOL , INHBA Glucose OB Screen - 1 Hour (mg/dL) Date/Time Value 09/06/2023 1051 98 Assessment/Plan Diagnoses and all orders for this visit: 30 weeks gestation of Continue vitamin. Labs reviewed. GBS at 36 weeks Expected mode of delivery IVF at [facility] Follow up in 2 weeks for a routine visit. documented in this encounter Plan of Treatment Upcoming Encounters Date Type Department Care Team (Late st Contact Info) Description 08/01/2024 10:45 AM EST Routine Obstetrics & Gynecology [address] [place] [address] Chris Olguin MD [address] [place] [address] documented as of this encounter Visit Diagnoses Diagnosis 30 weeks gestation of - Primary documented in this encounter Additional Health Concerns Assessment Noted Time A fall risk assessment has been complete d for the patient 10/18/2023 2:06 PM EST A Body Mass Index follow-up plan has been documented for the patient 10/18/2023 2:25 PM EST documented as of this encounter Care Teams Cath Lab Manager Relationship Specialty Start Date End Date Waldemar Baltazar MD [address] [place] [address] PCP - General 01/06/23 Waldemar Baltazar MD [address] [place] [address] 01/06/23 documented as of this encounter
--- OUTSIDE RECORDS SUMMARY | 2024-07-18 08:33 | XMS_ITS | Encounter Summary ---
Author Organization [facility] Address [address] [place] [address] Care Team Providers Care Diagnostic Imaging Manager Name Role Phone Waldemar Baltazar MD Primary Care Provider Waldemar Baltazar MD Unavailable [phone] Reason for Referral * Imaging (Routine) - Closed Specialty Diagnoses / Procedures Referred By Contac t Referred To Contact Diagnoses state, incidental Procedures OB US Detail Anatomy Miri Wu MD [address] [place] [id number] Phone: tel: fax: Referral ID Status Reason Start Date Expiration Date Visits Re quested Visits Authorized [id number] Closed 06/14/2023 12/13/2024 1 1 Reason for Visit * Imaging (Routine) - Closed Specialty Diagnoses / Procedures Referred By Contac t Referred To Contact Diagnoses state, incidental Procedures OB US Detail Anatomy Miri Wu MD [address] [place] [place] [id number] Phone: tel: fax: Referral ID Status Reason Start Date Expiration Date Visits Re quested Visits Authorized [id number] Closed 06/14/2023 12/13/2024 1 1 Encounter Details Date Type Department Care Team (Latest Contact Info) Description 08/09/2023 2:26 PM EST - 08/09/2023 11:59 PM EST Hospital Encounter [facility] [address] [place] [address] state, incidental Discharge Disposition: Home or Self Care Social History Tobacco Use Types Packs/Day Years Used Date Smoking Tobacco: Never Smokeless Tobacco: Never Alcohol Use Standard Drinks/Week Comments Never 0 (1 standard drink = 0.6 oz pur e alcohol) PHQ-2 Answer Date Recorded Patient Health Questionnaire-2 Score 0 08/09/2023 PHQ-2A Answer Date Recorded Patient Health Questionnaire-2 Score 0 07/12/2023 Comments Yes Sex and Gender Information Value Date Recorded Sex Assigned at Not on file Legal Sex Female 6:20 PM EDT Gender Identity Not on file Sexual Orientation Not on file documented as of this encounter Medications at Time of Discharge MV-Min-Fe Fum-FA-DHA ( 1 PO) Take by mouth 1 (one) time each day. aspirin 81 MG EC tabletIndications : state, incidental Take 1 tablet (81 mg) by mouth 1 (one) time each day. 30 tablet 11 06/14/2023 06/13/2024 ondansetron (Zofran) 8 MG tablet Take 1 tablet (8 mg) by mouth twice a day as needed for nausea 20 tablet 5 05/18/2023 01/13/2024 documented as of this encounter Plan of Treatment Upcoming Encounters Date Type Department Care Team (Late st Contact Info) Description 08/01/2024 10:45 AM EST Routine Obstetrics & Gynecology [address] [place] [address] Chris Olguin MD [address] [place] [address] documented as of this encounter Procedures Procedure Name Priority Date/Time Associated Diagnosis Comments OB US DETAIL ANATOMY Routine 08/09/2023 3:17 PM EST state, incidental documented in this encounter Results * OB US Detail Anatomy (08/09/2023 3:17 PM EST) Anatomical Region Laterality Modality Body Ultrasound 08/09/2023 2:25 PM EST Impressions 08/11/2023 10:15 AM EST The OB Ultrasound you requested has been resulted. Please navigate to the Imaging tab in [employer] for review. This message has been generated by the interface. Narrative Procedure Note Jeb Madrid MD - 08/11/2023 IMPRESSION: The OB Ultrasound you requested has been resulted. Please navigate to theImaging tab in Voxie for review. This message has been generated by theinterface. us Miri Wu MD IMG OB US PROCEDURES Fin al Result documented in this encounter Visit Diagnoses Diagnosis state, incidental documented in this encounter Additional Health Concerns Assessment Noted Time A fall risk assessment has been complete d for the patient 08/09/2023 3:17 PM EST A Body Mass Index follow-up plan has been documented for the patient 08/09/2023 3:39 PM EST documented as of this encounter Care Teams Diagnostic Imaging Manager Relationship Specialty Start Date End Date Waldemar Baltazar MD [address] [place] [address] PCP - General 01/06/23 Waldemar Baltazar MD [address] [place] [address] 01/06/23 documented as of this encounter
--- OUTSIDE RECORDS SUMMARY | 2024-07-18 08:33 | XMS_ITS | Encounter Summary ---
Author Organization [facility] Address [address] [place] [address] Care Team Providers Care Tester Operator Name Role Phone Waldemar Baltazar MD Primary Care Provider [phone] Waldemar Baltazar MD Unavailable [phone] Encounter Details Date Type Department Care Team (Late st Contact Info) Description 11/30/2023 Telephone Obstetrics & Gynecology [address] [place] [address] Chris Olguin MD [address] [place] [address] Social History Tobacco Use Types Packs/Day Years Used Date Smoking Tobacco: Never Smokeless Tobacco: Never Alcohol Use Standard Drinks/Week Comments Never 0 (1 standard drink = 0.6 oz pur e alcohol) PHQ-2 Answer Date Recorded Patient Health Questionnaire-2 Score 0 11/29/2023 PHQ-2A Answer Date Recorded Patient Health Questionnaire-2 [...] AM EST Routine Obstetrics & Gynecology [address] [place] [address] Chris Olguin MD [address] [place] [address] documented as of this encounter Visit Diagnoses Not on filedocumented in this encounter Additional Health Concerns Assessment Noted Time A fall risk assessment has been complete d for the patient 11/29/2023 10:25 AM EDT A Body Mass Index follow-up plan has been documented for the patient 11/29/2023 11:31 AM EDT documented as of this encounter Care Teams Tester Operator Relationship Specialty Start Date End Date Waldemar Baltazar MD [address] [place] [address] PCP - General 01/06/23 Waldemar Baltazar MD [address] [place] [address] 01/06/23 documented as of this encounter
--- OUTSIDE RECORDS SUMMARY | 2024-07-18 08:33 | XMS_ITS | Encounter Summary ---
Author Organization [facility] Address [address] [place] [address] Care Team Providers Care Address Change Clerk Name Role Phone Waldemar Baltazar MD Primary Care Provider Waldemar Baltazar MD Unavailable [phone] Reason for Visit * Reason Comments Routine Visit Doing well. Gluco se visit today, due at 10:55. Encounter Details Date Type Department Care Team (Late st Contact Info) Description 09/06/2023 10:30 AM EST Routine Obstetrics & Gynecology [address] [place] [address] Chris Olguin MD [address] [place] [address] state, incidental (Primary Dx) Social History Tobacco Use Types Packs/Day Years Used Date Smoking Tobacco: Never Smokeless Tobacco: Never Alcohol Use Standard Drinks/Week Comments Never 0 (1 standard drink = 0.6 oz pur e alcohol) PHQ-2 Answer Date Recorded Patient Health Questionnaire-2 Score 0 09/06/2023 PHQ-2A Answer Date Recorded Patient Health Questionnaire-2 Score 0 07/12/2023 Comments Yes Sex and Gender Information Value Date Recorded Sex Assigned at Not on file Legal Sex Female 6:20 PM EDT Gender Identity Not on file Sexual Orientation Not on file documented as of this encounter Last Filed Vital Signs Vital Sign Reading Time Taken Comments Blood Pressure 127/77 09/06/2023 10:29 AM EST Pulse - - Temperature - - Respiratory Rate - - Oxygen Saturation - - Inhaled Oxygen Concentration - - Weight 137 kg (300 lb 14.9 oz) 09/06/2023 10:29 AM EST Height - - Body Mass Index 50.08 02/20/2023 3:34 PM EDT documented in this encounter Miscellaneous Notes * Progress Notes - Chris Olguin MD - 09/06/2023 10:30 AM EST Subjective Chief Complaint Patient presents with Routine Visit Doing well. Glucose visit today, due at 10:55. Reid Domingo is a 18 y.o. at 24w1d with a working estimated date of delivery of 12/26/2023, by Ultrasound who presents for a routine visit. She denies vaginal bleeding, leakage of fluid, decreased movements, or contractions. Her is complicated by: NA The following portions of the chart were reviewed this encounter and updated as appropriate: ALL Objective Physical Exam Weight: 137 kg (300 lb 14.9 oz) Expected Total Weight Gain: 5 kg (11 lb)-9 kg (19 lb) Pregravid BMI: 47.33 BP: 127/77 Heart Rate: 130 Fundal Height (cm): 28 cm Labs Urine dip: NA HGB (g/dL) Date/Time Value 05/03/2023 1553 14.1 HCT (%) Date/Time Value 05/03/2023 1553 43.2 ABO/Rh (no units) Date/Time Value 05/03/2023 1553 O Positive Hepatitis B Surf Antigen (no units) Date/Time Value 05/03/2023 1553 Negative No results found for: PAPPA , AFP , HCG , ESTRIOL , INHBA No results found for: GLUF , GLUT1 , WDEZIJU5GC , ICDGTYN0CS Assessment/Plan Diagnoses and all orders for this visit: state, incidental - CBC W/O Differential - Glucose Challenge - OB Screen 1 hour Continue vitamin. Labs reviewed. GTT w/ CBC done today. Tdap at 28+ weeks. Follow up in 4 weeks for a routine visit. documented in this encounter Plan of Treatment Upcoming Encounters Date Type Department Care Team (Late st Contact Info) Description 08/01/2024 10:45 AM EST Routine Obstetrics & Gynecology [address] [place] [address] Chris Olguin MD [address] [place] [address] documented as of this encounter Procedures Procedure Name Priority Date/Time Associated Diagnosis Comments GLUCOSE CHALLENGE - OB SCREEN Routine 09/06/2023 10:51 AM EST state, incidental CBC W/O DIFFERENTIAL Routine 09/06/2023 10:51 AM EST state, incidental documented in this encounter Results * Glucose Challenge - OB Screen 1 hour (09/06/2023 10:51 AM EST) Glucose OB Screen - 1 Hour 98 74 - 139 mg/dL 09/06/2023 1:19 PM EST [facility] Blood Venous blood specimen / Unknown Venipuncture / Unknown 09/06/2023 10:51 AM EST 09/06/2023 12:52 PM EST Narrative [facility] - 09/06/2023 1:19 PM EST If plasma glucose concentration measured 1 hour after 50g glucose load is >= 140 mg/L, proceed to [id number], Glucose Tolerance Confirmation 3 Hour Test. us Chris Olguin MD LAB BLOOD ORDERABLES Final Resu lt [facility] [address] [place] [address] * CBC W/O Differential (09/06/2023 10:51 AM EST) WBC Count 10.23 3.70 - 10.30 10*3/uL LAB HEMATOLOGY METHOD 09/06/2023 1:19 PM EST [facility] RBC Count 4.22 3.90 - 5.20 10*6/uL LAB HEMATOLOGY METHOD 09/06/2023 1:19 PM EST [facility] HGB 12.2 11.2 - 15.7 g/dL LAB HEMATOLOGY METHOD 09/06/2023 1:19 PM EST [facility] HCT 38.3 34.0 - 45.0 % LAB HEMATOLOGY METHOD 09/06/2023 1:19 PM EST [facility] Platelet Count 262 155 - 369 10*3/uL LAB HEMATOLOGY METHOD 09/06/2023 1:19 PM EST [facility] MCV 91 79 - 98 fL LAB HEMATOLOGY METHOD 09/06/2023 1:19 PM EST [facility] MCH 28.9 26.0 - 32.0 pg LAB HEMATOLOGY METHOD 09/06/2023 1:19 PM EST [facility] MCHC 31.9 30.7 - 35.5 g/dL LAB HEMATOLOGY METHOD 09/06/2023 1:19 PM EST [facility] RDW 13.8 11.5 - 14.5 % LAB HEMATOLOGY METHOD 09/06/2023 1:19 PM EST [facility] MPV 10.1 8.8 - 12.5 fL LAB HEMATOLOGY METHOD 09/06/2023 1:19 PM EST [facility] nRBC 0.0 <=0.0 per 100 WBCs LAB HEMATOLOGY METHOD 09/06/2023 1:19 PM EST [facility] Blood Venous blood specimen / Unknown Venipuncture / Unknown 09/06/2023 10:51 AM EST 09/06/2023 1:10 PM EST us Chris Olguin MD LAB BLOOD ORDERABLES Final Resu lt Performing Organization Address City/State/[facility] Co de Phone Number [facility] [address] [place] [address] documented in this encounter Visit Diagnoses Diagnosis state, incidental- Primary documented in this encounter Additional Health Concerns Assessment Noted Time A fall risk assessment has been complete d for the patient 09/06/2023 10:31 AM EST A Body Mass Index follow-up plan has been documented for the patient 09/06/2023 1:01 PM EST documented as of this encounter Care Teams Address Change Clerk Relationship Specialty Start Date End Date Waldemar Baltazar MD [address] [place] [id number] PCP - General 01/06/23 Waldemar Baltazar MD [facility] [place] [id number] 01/06/23 documented as of this encounter
--- OUTSIDE RECORDS SUMMARY | 2024-07-18 08:33 | XMS_ITS | Encounter Summary ---
Author Organization [facility] Address [address] [place] [address] Care Team Providers Care Clinical Support Tech Name Role Phone Waldemar Baltazar MD Primary Care Provider Waldemar Baltazar MD Unavailable [phone] Reason for Visit * Reason Comments Routine Visit Here for rpv with good movement, no leaking or bleeding, some linnea irvin. Reports general aches and pains. Gets infusions once a week. Encounter Details Date Type Department Care Team (Late st Contact Info) Description 11/20/2023 2:45 PM EDT Routine Obstetrics & Gynecology [address] [place] [address] Chris Olguin MD [address] [place] [address] 34 weeks gestation of (Primary Dx) Social History Tobacco Use Types Packs/Day Years Used Date Smoking Tobacco: Never Smokeless Tobacco: Never Alcohol Use Standard Drinks/Week Comments Never 0 (1 standard drink = 0.6 oz pur e alcohol) PHQ-2 Answer Date Recorded Patient Health Questionnaire-2 Score 0 11/20/2023 PHQ-2A Answer Date Recorded Patient Health Questionnaire-2 Score 0 07/12/2023 Comments Yes Sex and Gender Information Value Date Recorded Sex Assigned at Not on file Legal Sex Female 6:20 PM EDT Gender Identity Not on file Sexual Orientation Not on file documented as of this encounter Last Filed Vital Signs Vital Sign Reading Time Taken Comments Blood Pressure 119/85 11/20/2023 3:20 PM EDT Pulse - - Temperature - - Respiratory Rate - - Oxygen Saturation - - Inhaled Oxygen Concentration - - Weight 139 kg (305 lb 12.5 oz) 11/20/2023 3:20 P M EDT Height - - Body Mass Index 50.88 02/20/2023 3:34 PM EDT documented in this encounter Miscellaneous Notes * Progress Notes - Chris Olguin MD - 11/20/2023 2:45 PM EDT Subjective Chief Complaint Patient presents with Routine Visit Here for rpv with good movement, no leaking or bleeding, some linnea irvin. Reports general aches and pains. Gets infusions once a week. Reid Domingo is a 18 y.o. at 34w6d with a working estimated date of delivery of 12/26/2023, by Ultrasound who presents for a routine visit. She denies vaginal bleeding, leakage of fluid, decreased movements, or contractions. Her is complicated by: NA The following portions of the chart were reviewed this encounter and updated as appropriate: ALL Objective Physical Exam Weight: 139 kg (305 lb 12.5 oz) Expected Total Weight Gain: 5 kg (11 lb)-9 kg (19 lb) Pregravid BMI: 47.33 BP: 119/85 Heart Rate: 130 Fundal Height (cm): 43 cm Labs Urine dip: NA HGB (g/dL) [...] Diagnoses and all orders for this visit: 34 weeks gestation of Continue vitamin. Labs reviewed. GBS at 36 weeks Expected mode of delivery Follow up in 1 week for a routine visit. documented in this encounter Plan of Treatment Upcoming Encounters Date Type Department Care Team (Late st Contact Info) Description 08/01/2024 10:45 AM EST Routine [facility] [address] [place] [address] Chris Olguin MD [address] [place] [address] documented as of this encounter Visit Diagnoses Diagnosis 34 weeks gestation of - Primary documented in this encounter Additional Health Concerns Assessment Noted Time A fall risk assessment has been complete d for the patient 11/20/2023 3:23 PM EDT A Body Mass Index follow-up plan has been documented for the patient 11/20/2023 3:47 PM EDT documented as of this encounter Care Teams Clinical Support Tech Relationship Specialty Start Date End Date Waldemar Baltazar MD [address] [place] [address] PCP - General 01/06/23 Waldemar Baltazar MD [address] [place] [address] 01/06/23 documented as of this encounter
--- OUTSIDE RECORDS SUMMARY | 2024-07-18 08:33 | XMS_ITS | Encounter Summary ---
Author Organization [facility] Address [address] [place] [address] Care Team Providers Care High Reach Operator Name Role Phone Waldemar Baltazar MD Primary Care Provider [phone] Waldemar Baltazar MD Unavailable [phone] Encounter Details Date Type Department Care Team (Latest Contact Info) Description 11/01/2023 Travel Social History Tobacco Use Types Packs/Day Years Used Date Smoking Tobacco: Never Smokeless Tobacco: Never Alcohol Use Standard Drinks/Week Comments Never 0 (1 standard drink = 0.6 oz pur e alcohol) PHQ-2 Answer Date Recorded Patient Health Questionnaire-2 Score 0 11/01/2023 PHQ-2A Answer Date Recorded Patient Health Questionnaire-2 [...] AM EST Routine Obstetrics & Gynecology [address] [place] [address] Chris Olguin MD [address] [place] [address] documented as of this encounter Visit Diagnoses Not on filedocumented in this encounter Additional Health Concerns Assessment Noted Time A fall risk assessment has been complete d for the patient 11/01/2023 8:31 AM EST A Body Mass Index follow-up plan has been documented for the patient 11/01/2023 8:53 AM EST documented as of this encounter Care Teams High Reach Operator Relationship Specialty Start Date End Date Waldemar Baltazar MD [address] [place] [address] PCP - General 01/06/23 Waldemar Baltazar MD [address] [place] [address] 01/06/23 documented as of this encounter
--- OUTSIDE RECORDS SUMMARY | 2024-07-18 08:33 | XMS_ITS | Encounter Summary ---
Author Organization [facility] Address [address] [place] [address] Care Team Providers Care Blindstitch Hemmer Name Role Phone Waldemar Baltazar MD Primary Care Provider [phone] Waldemar Baltazar MD Unavailable [phone] Encounter Details Date Type Department Care Team (Latest Contact Info) Description 12/13/2023 Travel Social History Tobacco Use Types Packs/Day Years Used Date Smoking Tobacco: Never Smokeless Tobacco: Never Alcohol Use Standard Drinks/Week Comments Never 0 (1 standard drink = 0.6 oz pur e alcohol) PHQ-2 Answer Date Recorded Patient Health Questionnaire-2 Score 0 12/13/2023 PHQ-2A Answer Date Recorded Patient Health Questionnaire-2 [...] AM EST Routine Obstetrics & Gynecology [address] [place] [address] Chris Olguin MD [address] [place] [address] documented as of this encounter Visit Diagnoses Not on filedocumented in this encounter Additional Health Concerns Assessment Noted Time A fall risk assessment has been complete d for the patient 12/13/2023 10:49 AM EDT A Body Mass Index follow-up plan has been documented for the patient 12/13/2023 12:05 PM EDT documented as of this encounter Care Teams Blindstitch Hemmer Relationship Specialty Start Date End Date Waldemar Baltazar MD [address] [place] [address] PCP - General 01/06/23 Waldemar Baltazar MD [address] [place] [address] 01/06/23 documented as of this encounter
--- OUTSIDE RECORDS SUMMARY | 2024-07-18 08:33 | XMS_ITS | Encounter Summary ---
Author Organization [facility] Address [address] [place] [address] Care Team Providers Care Sample Cutter Name Role Phone Waldemar Baltazar MD Primary Care Provider [phone] Waldemar Baltazar MD Unavailable [phone] Encounter Details Date Type Department Care Team (Latest Contact Info) Description 12/06/2023 Travel Social History Tobacco Use Types Packs/Day Years Used Date Smoking Tobacco: Never Smokeless Tobacco: Never Alcohol Use Standard Drinks/Week Comments Never 0 (1 standard drink = 0.6 oz pur e alcohol) PHQ-2 Answer Date Recorded Patient Health Questionnaire-2 Score 0 12/06/2023 PHQ-2A Answer Date Recorded Patient Health Questionnaire-2 [...] AM EST Routine Obstetrics & Gynecology [address] [place] [address] Chris Olguin MD [address] [place] [address] documented as of this encounter Visit Diagnoses Not on filedocumented in this encounter Additional Health Concerns Assessment Noted Time A fall risk assessment has been complete d for the patient 12/06/2023 10:27 AM EDT A Body Mass Index follow-up plan has been documented for the patient 12/06/2023 10:46 AM EDT documented as of this encounter Care Teams Sample Cutter Relationship Specialty Start Date End Date Waldemar Baltazar MD [address] [place] [address] PCP - General 01/06/23 Waldemar Baltazar MD [address] [place] [address] 01/06/23 documented as of this encounter
--- OUTSIDE RECORDS SUMMARY | 2024-07-18 08:33 | XMS_ITS | Encounter Summary ---
Author Organization [facility] Address [address] [place] [address] Care Team Providers Care Photograph Enlarger Name Role Phone Waldemar Baltazar MD Primary Care Provider [phone] Waldemar Baltazar MD Unavailable [phone] Encounter Details Date Type Department Care Team (Latest Contact Info) Description 12/18/2023 Travel Social History Tobacco Use Types Packs/Day [...] AM EST Routine Obstetrics & Gynecology [address] [place] [address] Chris Olguin MD [address] [place] [address] documented as of this encounter Visit Diagnoses Not on filedocumented in this encounter Additional Health Concerns Assessment Noted Time A fall risk assessment has been complete d for the patient 12/13/2023 10:49 AM EDT A Body Mass Index follow-up plan has been documented for the patient 12/18/2023 11:57 AM EDT documented as of this encounter Care Teams Photograph Enlarger Relationship Specialty Start Date End Date Waldemar Baltazar MD [address] [place] [address] PCP - General 01/06/23 Waldemar Baltazar MD [address] [place] [address] 01/06/23 documented as of this encounter
--- OUTSIDE RECORDS SUMMARY | 2024-07-18 08:33 | XMS_ITS | Encounter Summary ---
Author Organization [facility] Address [address] [place] [address] Care Team Providers Care High Lift Operator Name Role Phone Waldemar Baltazar MD Primary Care Provider Waldemar Baltazar MD Unavailable [phone] Reason for Visit * Reason Comments Routine Visit Encounter Details Date Type Department Care Team (Late st Contact Info) Description 12/06/2023 10:15 AM EDT Routine Obstetrics & Gynecology [address] [place] [address] Miri Wu MD [address] [place] [address] state, incidental (Primary Dx); Excessive growth affecting management of in third trimester, single or unspecified fetus Social History Tobacco Use Types Packs/Day Years [...] Sign Reading Time Taken Comments Blood Pressure 127/74 12/06/2023 10:25 AM EDT Pulse - - Temperature - - Respiratory Rate - - Oxygen Saturation - - Inhaled Oxygen Concentration - - Weight 140 kg (308 lb 6.8 oz) 12/06/2023 10:25 A M EDT Height - - Body Mass Index 51.32 02/20/2023 3:34 PM EDT documented in this encounter Miscellaneous Notes * Progress Notes - Miri Wu MD - 12/06/2023 10:15 AM EDT Subjective Chief Complaint Patient presents with Routine Visit Reid Domingo is a 18 y.o. at 37w1d with a working estimated date of delivery of 12/26/2023, by Ultrasound who presents for a routine visit. Having some irregular contractions that started yesterday. She denies vaginal bleeding, leakage of fluid, decreased movements. Her is complicated by: LGA The following portions of the chart were reviewed this encounter and updated as appropriate: Objective Physical Exam Weight: 140 kg (308 lb 6.8 oz) Expected Total Weight Gain: 5 kg (11 lb)-9 kg (19 lb) Pregravid BMI: 47.33 BP: 127/74 Heart Rate: 140 Dilation: 1 Effacement (%): 50 Station: -3 Labs Urine dip: NA HGB (g/dL) Date/Time [...] (mg/dL) Date/Time Value 09/06/2023 1051 98 Assessment/Plan Diagnosis Plan 1. state, incidental 2. Excessive growth affecting management of in third trimester, single or unspecified fetus We discussed vaginal delivery and primary section for LGA. We discussed risks of labor dystocia, trauma, shoulder dystocia. We discussed possible trial of labor if she does go into labor before scheduled c/s date. We also discussed risks for hypoglycemia after and needfor BG monitoring after . Continue vitamin. Labs reviewed. GBS negative Expected mode of delivery LTCS Follow up in 1 week for a routine visit. documented in this encounter Plan of Treatment Upcoming Encounters Date Type Department Care Team (Late st Contact Info) Description 08/01/2024 10:45 AM EST Routine [facility] [address] [place] [address] Chris Olguin MD [address] [place] [address] documented as of this encounter Visit Diagnoses Diagnosis state, incidental- Primary Excessive growth affecting management of in third trimester, single or unspecified fetus documented in this encounter Additional Health Concerns Assessment Noted Time A fall risk assessment has been complete d for the patient 12/06/2023 10:27 AM EDT A Body Mass Index follow-up plan has been documented for the patient 12/06/2023 10:46 AM EDT documented as of this encounter Care Teams High Lift Operator Relationship Specialty Start Date End Date Waldemar Baltazar MD [address] [place] [address] PCP - General 01/06/23 Waldemar Baltazar MD [address] [place] [address] 01/06/23 documented as of this encounter
--- OUTSIDE RECORDS SUMMARY | 2024-07-18 08:33 | XMS_ITS | Encounter Summary ---
Author Organization [facility] Address [address] [place] [address] Care Team Providers Care Business Lawyer Name Role Phone Waldemar Baltazar MD Primary Care Provider Waldemar Baltazar MD Unavailable [phone] Encounter Details Date Type Department Care Team (Latest Contact Info) Description 09/06/2023 Travel Social History Tobacco Use Types Packs/Day [...] AM EST Routine Obstetrics & Gynecology [address] [place] [address] Chris Olguin MD [address] [place] [address] documented as of this encounter Visit Diagnoses Not on filedocumented in this encounter Additional Health Concerns Assessment Noted Time A fall risk assessment has been complete d for the patient 09/06/2023 10:31 AM EST A Body Mass Index follow-up plan has been documented for the patient 09/06/2023 1:01 PM EST documented as of this encounter Care Teams Business Lawyer Relationship Specialty Start Date End Date Waldemar Baltazar MD [address] [place] [address] PCP - General 01/06/23 Waldemar Baltazar MD [address] [place] [address] 01/06/23 documented as of this encounter
--- OUTSIDE RECORDS SUMMARY | 2024-07-18 08:33 | XMS_ITS | Encounter Summary ---
Author Organization [facility] Address [address] [place] [address] Care Team Providers Care Leather Skinner Name Role Phone Waldemar Baltazar MD Primary Care Provider [phone] Waldemar Baltazar MD Unavailable [phone] Reason for Referral * Imaging (Routine) - Closed Specialty Diagnoses / Procedures Referred By Contac t Referred To Contact Diagnoses Significant discrepancy between uterine size and clinical dates, antepartum, third trimester Procedures OB US Follow Up Transabdominal Approach Chris Olguin MD [address] [place] [address] Phone: tel: fax: Referral ID Status Reason Start Date Expiration Date Visits Re quested Visits Authorized [id number] Closed 11/01/2023 05/02/2025 1 1 Reason for Visit * Reason Comments Ultrasound Fhr 145, cephalic, bouchra- 13.9cm, ac greater than 99%, efw- 6lb7oz, pi- 70%, overall growth 95%, bpp 04/04 Encounter Details Date Type Department Care Team (Late st Contact Info) Description 11/01/2023 8:00 AM EST Routine Obstetrics & Gynecology [address] [place] [address] Chirs Olguin MD [address] [place] [address] 32 weeks gestation of (Primary Dx); Significant discrepancy between uterine size and clinical dates, antepartum, third trimester Social History Tobacco Use Types Packs/Day Years [...] Sign Reading Time Taken Comments Blood Pressure 115/70 11/01/2023 8:32 AM EST Pulse - - Temperature - - Respiratory Rate - - Oxygen Saturation - - Inhaled Oxygen Concentration - - Weight 137 kg (302 lb 0.5 oz) 11/01/2023 8:32 AM EST Height - - Body Mass Index 50.26 02/20/2023 3:34 PM EDT documented in this encounter Miscellaneous Notes * Progress Notes - Chris Olguin MD - 11/01/2023 8:00 AM EST Subjective Chief Complaint Patient presents with Ultrasound Fhr 145, cephalic, bouchra- 13.9cm, ac greater than 99%, efw- 6lb7oz, pi- 70%, overall growth 95%, bpp 04/04 Reid Domingo is a 18 y.o. at 32w1d with a working estimated date of delivery of 12/26/2023, by Ultrasound who presents for a routine visit. She denies vaginal bleeding, leakage of fluid, decreased movements, or regular contractions. Some N/V - gets IVF at [facility]. Her is complicated by: LGA The following portions of the chart were reviewed this encounter and updated as appropriate: ALL Objective Physical Exam Weight: 137 kg (302 lb 0.5 oz) Expected Total Weight Gain: 5 kg (11 lb)-9 kg (19 lb) Pregravid BMI: 47.33 BP: 115/70 Heart Rate: +us Presentation: Vertex Labs Urine dip: NA HGB (g/dL) Date/Time Value 09/06/2023 1051 12.2 HCT (%) Date/Time Value 09/06/2023 1051 38.3 ABO/Rh (no units) Date/Time Value 05/03/2023 1553 O Positive Hepatitis B Surf Antigen (no units) Date/Time Value 05/03/2023 1553 Negative No results found for: PAPPA , AFP , HCG , ESTRIOL , INHBA Glucose OB Screen - 1 Hour (mg/dL) Date/Time Value 09/06/2023 1051 98 Imaging Growth US OK - LGA 95% - BPP 04/04 - VTX Assessment/Plan Diagnoses and all orders for this visit: 32 weeks gestation of Significant discrepancy between uterine size and clinical dates, antepartum, third trimester - OB US Follow Up Transabdominal Approach; Future Continue vitamin. Labs reviewed. GBS at 36 weeks Expected mode of delivery ReUS 4 weeks Follow up in 2 weeks for a routine visit. documented in this encounter Plan of Treatment Upcoming Encounters Date Type Department Care Team (Late st Contact Info) Description 08/01/2024 10:45 AM EST Routine [facility] [address] [place] [address] Chris Olguin MD [address] [place] [address] documented as of this encounter Results * OB US Follow Up Transabdominal Approach (11/29/2023 10:24 AM EDT) Anatomical Region Laterality Modality Body Ultrasound 11/29/2023 9:58 AM EDT Impressions 11/30/2023 8:25 AM EDT The OB Ultrasound you requested has been resulted. Please navigate to the Imaging tab in [employer] for review. This message has been generated by the interface. Narrative Procedure Note [place], Forrest, MD - 11/30/2023 IMPRESSION: The OB Ultrasound you requested has been resulted. Please navigate to theImaging tab in [employer] for review. This message has been generated by [employer]. us Chris Olguin MD IMG OB US PROCEDURES Final Resu lt documented in this encounter Visit Diagnoses Diagnosis 32 weeks gestation of - Primary Significant discrepancy between uterine size and clinical dates, antepartum, third trimester Significant discrepancy between uterine size and clinical dates, antepartum, third trimester documented in this encounter Additional Health Concerns Assessment Noted Time A fall risk assessment has been complete d for the patient 11/01/2023 8:31 AM EST A Body Mass Index follow-up plan has been documented for the patient 11/01/2023 8:53 AM EST documented as of this encounter Care Teams Leather Skinner Relationship Specialty Start Date End Date Waldemar Baltazar MD [address] [place] [address] PCP - General 01/06/23 Waldemar Baltazar MD [address] [place] [address] 01/06/23 documented as of this encounter
--- OUTSIDE RECORDS SUMMARY | 2024-07-18 08:33 | XMS_ITS | Encounter Summary ---
Author Organization [facility] Address [address] [place] [address] Care Team Providers Care Furnace Combination Analyst Name Role Phone Waldemar Baltazar MD Primary Care Provider [phone] Waldemar Baltazar MD Unavailable [phone] Reason for Referral * Imaging (Routine) - Closed Specialty Diagnoses / Procedures Referred By Contac t Referred To Contact Diagnoses Significant discrepancy between uterine size and clinical dates, antepartum, third trimester Procedures OB US Follow Up Transabdominal Approach Chris Olguin MD [address] [place] [address] Phone: tel: fax: Referral ID Status Reason Start Date Expiration Date Visits Re quested Visits Authorized [id number] Closed 10/04/2023 04/04/2025 1 1 Reason for Visit * Imaging (Routine) - Closed Specialty Diagnoses / Procedures Referred By Contac t Referred To Contact Diagnoses Significant discrepancy between uterine size and clinical dates, antepartum, third trimester Procedures OB US Follow Up Transabdominal Approach Chris Olguin MD [address] [place] [address] Phone: tel: fax: Referral ID Status Reason Start Date Expiration Date Visits Re quested Visits Authorized [id number] Closed 10/04/2023 04/04/2025 1 1 Encounter Details Date Type Department Care Team (Latest Contact Info) Description 11/01/2023 7:58 AM EST - 11/01/2023 11:59 PM EST Hospital Encounter [facility] OZGY[facility] ULTRASOUND [address] [place] [address] Significant discrepancy between uterine size and clinical dates, antepartum, third trimester Discharge Disposition: Home or Self Care Social [...] Routine Obstetrics & Gynecology [address] [place] [address] Chris Olguin MD [address] [place] [address] documented as of this encounter Procedures Procedure Name Priority Date/Time Associated Diagnosis Comments OB US FOLLOW UP TRANSABDOMINAL APPROACH Routine 11/01/2023 8:30 AM EST Significant discrepancy between uterine size and clinical dates, antepartum, third trimester documented in this encounter Results * OB US Follow Up Transabdominal Approach (11/01/2023 8:30 AM EST) Anatomical Region Laterality Modality Body Ultrasound 11/01/2023 8:01 AM EST Impressions 11/01/2023 10:17 AM EST The OB Ultrasound you requested has been resulted. Please navigate to the Imaging tab in [employer] for review. This message has been generated by the interface. Narrative Procedure Note Jeb Madrid MD - 11/01/2023 IMPRESSION: The OB Ultrasound you requested has been resulted. Please navigate to theImaging tab in [employer] for review. This message has been generated by [employer]. us Chris Olguin MD IMG OB US PROCEDURES Final Resu lt documented in this encounter Visit Diagnoses Diagnosis Significant discrepancy between uterine size and clinical dates, antepartum, third trimester documented in this encounter Additional Health Concerns Assessment Noted Time A fall risk assessment has been complete d for the patient 11/01/2023 8:31 AM EST A Body Mass Index follow-up plan has been documented for the patient 11/01/2023 8:53 AM EST documented as of this encounter Care Teams Furnace Combination Analyst Relationship Specialty Start Date End Date Waldemar Baltazar MD [address] [place] [address] PCP - General 01/06/23 Waldemar Baltazar MD [address] [place] [address] 01/06/23 documented as of this encounter
--- OUTSIDE RECORDS SUMMARY | 2024-07-18 08:33 | XMS_ITS | Encounter Summary ---
Author Organization [facility] Address [address] [place] [address] Care Team Providers Care Vp Product Marketing Name Role Phone Waldemar Baltazar MD Primary Care Provider [phone] Waldemar Baltazar MD Unavailable [phone] Encounter Details Date Type Department Care Team (Late st Contact Info) Description 10/06/2023 Telephone Obstetrics & Gynecology [address] [place] [address] Chris Olguin MD [address] [place] [address] Social History Tobacco Use Types [...] encounter Miscellaneous Notes * Telephone Encounter - Candace De La Fuente Sara - 10/06/2023 5:07 PM EST Called left detailed vm, infusion info was sent yesterday I called and left them a vm but gave pt number to call. Work excuse ok per Dr. Olguin. Wrote and sent through [employer]. * Telephone Encounter - Candace De La Fuente - 10/06/2023 3:11 PM EST Called infusion and left vm. * Telephone Encounter - Hilda Roldan - 10/06/2023 2:28 PM EST Clinical Concern/Question Reason for Call: Pt was seen last week and was advised to start having weekly IV fluids at the [facility]. Pt was advised if she had not heard from anyone regarding scheduling by the end of this week to call back here per Dr. Olguin. Pt has not heard from anyone at [facility] regarding this. Also asking if she can get a note to start working 8 hour shifts instead of 12 since she is in her third trimester. Please call to advise. Best contact number: [phone] (mobile) Optimal time of day to reach caller: ANYTIME Additional comments/information from caller: Guidance Note: Please do not reply to this message. Follow-up communication and further actions as a result of this message need to be communicated with the patient directly, if the patient is not active onMyChart. If the patient is active on MyChart, they will receive notification of the communication/outcome via [employer] [facility]. documented in this encounter Plan of Treatment Upcoming Encounters Date Type Department Care Team (Late st Contact Info) Description 08/01/2024 10:45 AM EST Routine [facility] [address] [place] [address] Chris Olguin MD [address] [place] [address] documented as of this encounter Visit Diagnoses Not on filedocumented in this encounter Additional Health Concerns Assessment Noted Time A fall risk assessment has been complete d for the patient 10/04/2023 2:09 PM EST A Body Mass Index follow-up plan has been documented for the patient 10/04/2023 2:47 PM EST documented as of this encounter Care Teams Vp Product Marketing Relationship Specialty Start Date End Date Waldemar Baltazar MD [address] [place] [address] PCP - General 01/06/23 Waldemar Baltazar MD [address] [place] [address] 01/06/23 documented as of this encounter
--- OUTSIDE RECORDS SUMMARY | 2024-07-18 08:33 | XMS_ITS | Encounter Summary ---
Author Organization [facility] Address [address] [place] [address] Care Team Providers Care 5Th Grade Teacher Name Role Phone Waldemar Baltazar MD Primary Care Provider [phone] Waldemar Baltazar MD Unavailable [phone] Reason for Visit * Reason Comments Follow-up Post , doi ng well. Mood is okay, some crying spells, but nothing she is worried about, better each day. Was pumping, has switched to formula. Encounter Details Date Type Department Care Team (Late st Contact Info) Description 12/28/2023 11:15 AM EDT Visit Obstetrics & Gynecology [address] [place] [address] Miri Wu MD [address] [place] [address] Candidiasis (Primary Dx); Routine follow-up Social History Tobacco Use Types Packs/Day Years Used Date Smoking Tobacco: Never Smokeless Tobacco: Never Tobacco Cessation:Counseling Given: Not Answered Alcohol Use Standard Drinks/Week Comments Never 0 (1 standard drink = 0.6 oz pur e alcohol) PHQ-2 Answer Date Recorded Patient Health Questionnaire-2 Score 0 12/28/2023 [place] Depression Scale Answer Date Recorded [place] Depression Scale Total 1 12/28/2023 The thought of harming myself has occurred to me . Never 12/28/2023 PHQ-2A Answer Date Recorded Patient Health Questionnaire-2 Score 0 07/12/2023 Comments No Sex and Gender Information Value Date Recorded Sex Assigned at Not on file Legal Sex Female 6:20 PM EDT Gender Identity Not on file Sexual Orientation Not on file documented as of this encounter Last Filed Vital Signs Vital Sign Reading Time Taken Comments Blood Pressure 114/77 12/28/2023 11:28 AM EDT Pulse 76 12/28/2023 11:28 AM EDT Temperature 36.7 ??C (98.1 ??F) 12/28/2023 11:28 AM E DT Respiratory Rate 17 12/28/2023 11:28 AM EDT Oxygen Saturation 100% 12/28/2023 11:28 AM EDT Inhaled Oxygen Concentration - - Weight 126 kg (277 lb 12.5 oz) 12/28/2023 11:28 AM EDT Height - - Body Mass Index 46.22 02/20/2023 3:34 PM EDT documented in this encounter Miscellaneous Notes * Assessment & Plan Note - Miri Wu MD - 12/28/2023 7:43 PM EDT Associated Problem(s): Routine follow-up (Resolved 07/15/2024) - normal exam - incision healing well, some yeast under incision, nystatin powder Rx sent - discuss contraception at next visit - RTC 4 weeks * Progress Notes - Miri Wu MD - 12/28/2023 11:15 AM EDT Progress Note Subjective 18yo s/p P C/S on 12/14/23 at 38w2d for macrosomia here today for 2 week visit. Had spinal headache but improved after treatment. Pain controlled. Lochia normal. Normal bowel and bladder function. Mood is good. Bottle feeding. No other concerns today. Objective Visit Vitals BP 114/77 Pulse 76 Temp 36.7 ??C (98.1 ??F) Resp 17 Physical Exam Constitutional: Appearance: Normal appearance. HENT: Head: Normocephalic and atraumatic. Cardiovascular: Rate and Rhythm: Normal rate and regular rhythm. Pulmonary: Effort: Pulmonary effort is normal. Abdominal: General: There is no distension. Palpations: Abdomen is soft. Tenderness: There is no abdominal tenderness. Comments: Incision c/d/I, some satellite lesions under incision Neurological: General: No focal deficit present. Mental Status: She is alert and oriented to person, place, and time. Psychiatric: Mood and Affect: Mood normal. Behavior: Behavior normal. Vitals reviewed. Assessment/Plan Problem List Items Addressed This Visit Candidiasis - Primary Relevant Medications nystatin (Mycostatin) [id number] UNIT/GM powder Routine follow-up - normal exam - incision healing well, some yeast under incision, nystatin powder Rx sent - discuss contraception at next visit - RTC 4 weeks Time Spent: I personally spent a total of 23 minutes on this encounter. This time includes face to face with patient, counseling and discussion and/or coordination of care. documented in this encounter Plan of Treatment Upcoming Encounters Date Type Department Care Team (Late st Contact Info) Description 08/01/2024 10:45 AM EST Routine [facility] [address] [place] [address] Chris Olguin MD [address] [place] [address] documented as of this encounter Visit Diagnoses Diagnosis Candidiasis- Primary Routine follow-up documented in this encounter Additional Health Concerns Assessment Noted Time A fall risk assessment has been complete d for the patient 12/28/2023 11:31 AM EDT A Body Mass Index follow-up plan has been documented for the patient 12/28/2023 7:44 PM EDT documented as of this encounter Care Teams 5Th Grade Teacher Relationship Specialty Start Date End Date Waldemar Baltazar MD [facility] [place] [address] PCP - General 01/06/23 Waldemar Baltazar MD [facility] [place] [address] 01/06/23 documented as of this encounter
--- OUTSIDE RECORDS SUMMARY | 2024-07-18 08:33 | XMS_ITS | Encounter Summary ---
Author Organization [facility] Address [address] [place] [address] Care Team Providers Care Clinical Support Manager Name Role Phone Waldemar Baltazar MD Primary Care Provider Waldemar Baltazar MD Unavailable [phone] Reason for Visit * Reason Comments Routine Visit Encounter Details Date Type Department Care Team (Late st Contact Info) Description 07/12/2023 1:30 PM EST Routine Obstetrics & Gynecology [address] [place] [address] Miri Wu MD [address] [place] [address] state, incidental (Primary Dx) Social History Tobacco Use Types Packs/Day Years Used Date Smoking Tobacco: Never Smokeless Tobacco: Never Alcohol Use Standard Drinks/Week Comments Never 0 (1 standard drink = 0.6 oz pur e alcohol) PHQ-2 Answer Date Recorded Patient Health Questionnaire-2 Score 0 07/12/2023 PHQ-2A Answer Date Recorded Patient Health Questionnaire-2 Score 0 07/12/2023 Comments Yes Sex and Gender Information Value Date Recorded Sex Assigned at Not on file Legal Sex Female 6:20 PM EDT Gender Identity Not on file Sexual Orientation Not on file documented as of this encounter Last Filed Vital Signs Vital Sign Reading Time Taken Comments Blood Pressure 135/79 07/12/2023 1:25 PM EST Pulse - - Temperature - - Respiratory Rate - - Oxygen Saturation - - Inhaled Oxygen Concentration - - Weight 136 kg (299 lb 13.2 oz) 07/12/2023 1:25 P M EST Height - - Body Mass Index 49.89 02/20/2023 3:34 PM EDT documented in this encounter Miscellaneous Notes * Progress Notes - Miri Wu MD - 07/12/2023 1:30 PM EST Note Subjective Ms. Domingo is a 18yo @ 16w1d here for a visit. Doing well today. Has some nausea, but it is improving. No vaginal bleeding. Only question is if she should continue progesterone. Discussed that it is okay to stop now. Objective Visit Vitals BP 135/79 Heart Rate: US Assessment Problem List Items Addressed This Visit Other state, incidental - Primary - labs reviewed, NIPT low risk female - continue PNV and baby ASA - okay to stop progesterone - has already had flu shot this year - ilya US scheduled - RTC 4 weeks * Assessment & Plan Note - Miri Wu MD - 07/12/2023 1:25 PM EST Associated Problem(s): state, incidental (Resolved 12/28/2023) - labs reviewed, NIPT low risk female - continue PNV and baby ASA - okay to stop progesterone - has already had flu shot this year - ilya US scheduled - RTC 4 weeks documented in this encounter Plan of Treatment Upcoming Encounters Date Type Department Care Team (Late st Contact Info) Description 08/01/2024 10:45 AM EST Routine Obstetrics & Gynecology [address] [place] [address] Chris Olguin MD [address] [place] [address] documented as of this encounter Visit Diagnoses Diagnosis state, incidental- Primary documented in this encounter Additional Health Concerns Assessment Noted Time A fall risk assessment has been complete d for the patient 07/12/2023 1:27 PM EST A Body Mass Index follow-up plan has been documented for the patient 07/12/2023 1:34 PM EST documented as of this encounter Care Teams Clinical Support Manager Relationship Specialty Start Date End Date Waldemar Baltazar MD [address] [place] [address] PCP - General 01/06/23 Waldemar Baltazar MD [address] [place] [address] 01/06/23 documented as of this encounter
--- OUTSIDE RECORDS SUMMARY | 2024-07-18 08:33 | XMS_ITS | Encounter Summary ---
Author Organization [facility] Address [address] [place] [address] Care Team Providers Care Soaker Name Role Phone Waldemar Baltazar MD Primary Care Provider Waldemar Baltazar MD Unavailable [phone] Encounter Details Date Type Department Care Team (Late Contact Info) Description 12/14/2023 Orders Only External Location [address] [place] [address] Miri Wu MD [address] [place] [address] Social History Tobacco Use Types [...] AM EST Routine Obstetrics & Gynecology [address] [place] [address] Chris Olguin MD [address] [place] [address] Pending Results Name Type Priority Associated Diagnoses Date /Time Urine Culture Microbiology Routine 9:18 AM EDT documented as of this encounter Procedures Procedure Name Priority Date/Time Associated Diagnosis Comments HEMATOCRIT, BLOOD Routine 12/14/2023 6:5 5 PM EDT CBC WITH AUTO DIFFERENTIAL Routine 12/14/2023 9:18 AM EDT TYPE AND SCREEN Routine 12/14/2023 9:18 AM EDT URINE CULTURE Routine 12/14/2023 9:18 AM EDT documented in this encounter Results * Hematocrit, Blood (12/14/2023 6:55 PM EDT) External Hematocrit 38.8 37.0 - 47.0 % [facility] 12/14/2023 6:55 PM EDT 12/14/2023 7:13 PM EDT us Miri Wu MD LAB BLOOD ORDERABLES Fin al Result [facility] * Type and Screen (12/14/2023 9:18 AM EDT) External History Check Completed [facility] External ABO/Rh O POSITIVE [facility] External Antibody Screen NEGATIVE [facility] External Status Information Completed [facility] 12/14/2023 9:18 AM EDT 12/14/2023 10:06 AM EDT Miri Wu MD LAB BLOOD BANK TEST ORDE RABLES Final Result [facility] * (ABNORMAL) CBC and Differential (12/14/2023 9:18 AM EDT) External WBC 11.2(H) 4.0 - 10.5 K/ul [facility] External Red Blood Cell (RBC) 4.7 4.2 - 6.4 M/mm3 [facility] External Hemoglobin 12.1(L) 12.5 - 16.0 gm/dl [facility] External Hematocrit 38.3 37.0 - 47.0 % [facility] External MCV 82.0 78 - 100 fl [facility] External MCH 25.9(L) 27 - 31 pg [facility] External MCHC 31.6(L) 32 - 36 g/dl [facility] External RDW 15.3(H) 11.5 - 14.0 % [facility] External Platelets 279 150 - 450 K/ul [facility] External MPV 9.8(H) 6 - 9.5 fl [facility] External Neutrophils % 75.1(H) 43 - 65 % [facility] External Lymphocyte % 16.1(L) 20.5 - 45.5 % [facility] External Monocyte % 7.6 5.5 - 11.7 % [facility] External Eosinophil% 0.4(L) 0.9 - 2.9 % [facility] External Basophil % 0.3 0.2 - 1.0 % [facility] External Immature Granulocyte% 0.5 0.0 - 0.8 % [facility] External Nucleated RBC % 0.0 % [facility] External Neutrophil# 8.4(H) 2.2 - 4.8 K/uL [facility] External Lymphocyte# 1.8 1.3 - 2.9 CELL/MCL [facility] External Monocyte# 0.9(H) 0.3 - 0.8 CELL/MCL [facility] External Eosinophils# 0.1 0 - 0.2 CELL/MCL [facility] External Baso# 0.0 0.0 - 1.0 CELL/MCL [facility] External Immature Granulocyte Abs 0.06 K/ul [facility] External Nucleated RBC Absolute 0.00 K/uL [facility] External Manual Differential NO [facility] 12/14/2023 9:18 AM EDT 12/14/2023 10:07 AM EDT us Miri Wu MD LAB BLOOD ORDERABLES Fin al Result [facility] documented in this encounter Visit Diagnoses Not on filedocumented in this encounter Additional Health Concerns Assessment Noted Time A fall risk assessment has been complete d for the patient 12/13/2023 10:49 AM EDT A Body Mass Index follow-up plan has been documented for the patient 12/13/2023 12:05 PM EDT documented as of this encounter Care Teams Soaker Relationship Specialty Start Date End Date Waldemar Baltazar MD [address] [place] [address] PCP - General 01/06/23 Waldemar Baltazar MD [address] [place] [address] 01/06/23 documented as of this encounter
--- OUTSIDE RECORDS SUMMARY | 2024-07-18 08:33 | XMS_ITS | Encounter Summary ---
Author Organization [facility] Address [address] [place] [address] Care Team Providers Care Nutritional Services Host Name Role Phone Waldemar Baltazar MD Primary Care Provider Waldemar aBltazar MD Unavailable [phone] Encounter Details Date Type Department Care Team (Latest Contact Info) Description 07/12/2023 Travel Social History Tobacco Use Types Packs/Day [...] AM EST Routine Obstetrics & Gynecology [address] [place] [address] Chris Olguin MD [address] [place] [address] documented as of this encounter Visit Diagnoses Not on filedocumented in this encounter Additional Health Concerns Assessment Noted Time A fall risk assessment has been complete d for the patient 07/12/2023 1:27 PM EST A Body Mass Index follow-up plan has been documented for the patient 07/12/2023 1:34 PM EST documented as of this encounter Care Teams Nutritional Services Host Relationship Specialty Start Date End Date Waldemar Baltazar MD [address] [place] [address] PCP - General 01/06/23 Waldemar Baltazar MD [address] [place] [address] 01/06/23 documented as of this encounter
--- OUTSIDE RECORDS SUMMARY | 2024-07-18 08:33 | XMS_ITS | Encounter Summary ---
Author Organization [facility] Address [address] [place] [address] Care Team Providers Care Intake Man Name Role Phone Waldemar Baltazar MD Primary Care Provider Waldemar Baltazar MD Unavailable [phone] Reason for Visit * Reason Comments Routine Visit Good moveme nt, irregular contractions. Ready for delivery, planned . Encounter Details Date Type Department Care Team (Late st Contact Info) Description 12/13/2023 10:30 AM EDT Routine Obstetrics & Gynecology [address] [place] [address] Miri Wu MD [address] [place] [address] state, incidental (Primary Dx); Excessive [...] Sign Reading Time Taken Comments Blood Pressure 131/82 12/13/2023 10:46 AM EDT Pulse - - Temperature - - Respiratory Rate - - Oxygen Saturation - - Inhaled Oxygen Concentration - - Weight 140 kg (308 lb 3.3 oz) 12/13/2023 10:46 A M EDT Height - - Body Mass Index 51.29 02/20/2023 3:34 PM EDT documented in this encounter Miscellaneous Notes * Progress Notes - Miri Wu MD - 12/13/2023 10:30 AM EDT Subjective Chief Complaint Patient presents with Routine Visit Good movement, irregular contractions. Ready for delivery, planned . Reid Domingo is a 18 y.o. at 38w1d with a working estimated date of delivery of 12/26/2023, by Ultrasound who presents for a routine visit. She denies regular contractions, vaginal bleeding, leakage of fluid, decreased movements. Her is complicated by: LGA The following portions of the chart were reviewed this encounter and updated as appropriate: Objective Physical Exam Weight: 140 kg (308 lb 3.3 oz) Expected Total Weight Gain: 5 kg (11 lb)-9 kg (19 lb) Pregravid BMI: 47.33 BP: 131/82 Heart Rate: 140 Labs Urine dip: NA HGB (g/dL) Date/Time [...] in third trimester, single or unspecified fetus Continue vitamin. Labs reviewed. GBS negative Expected mode of delivery LTCS - consents signed today - primary c/s 12/18. Questions answered, precautions discussed. documented in this encounter Plan of Treatment Upcoming Encounters Date Type Department Care Team (Late st Contact Info) Description 08/01/2024 10:45 AM EST Routine [facility] [address] [place] [address] Chris Olguin MD [address] [place] [address] documented as of this encounter [...] documented as of this encounter Care Teams Intake Man Relationship Specialty Start Date End Date Waldemar Baltazar MD [address] [place] [address] PCP - General 01/06/23 Waldemar Baltazar MD [address] [place] [address] 01/06/23 documented as of this encounter
--- OUTSIDE RECORDS SUMMARY | 2024-07-18 08:33 | XMS_ITS | Encounter Summary ---
Author Organization [facility] Address [address] [place] [address] Care Team Providers Care Leadership Program Internship Name Role Phone Waldemar Baltazar MD Primary Care Provider Waldemar Baltaazr MD Unavailable [phone] Encounter Details Date Type Department Care Team (Late Contact Info) Description 12/15/2023 Orders Only External Location [address] [place] [address] Miri Wu MD [address] [place] [address] Social History Tobacco Use Types [...] AM EST Routine Obstetrics & Gynecology [address] [place] [address] Chris Olguin MD [address] [place] [address] documented as of this encounter Procedures Procedure Name Priority Date/Time Associated Diagnosis Comments CBC W/O DIFFERENTIAL Routine 12/15/2023 4:34 AM EDT documented in this encounter Results * (ABNORMAL) CBC W/O Differential (12/15/2023 4:34 AM EDT) External WBC 19.7(H) 4.0 - 10.5 K/ul [facility] External Red Blood Cell (RBC) 4.4 4.2 - 6.4 M/mm3 [facility] External Hemoglobin 11.3(L) 12.5 - 16.0 gm/dl [facility] External Hematocrit 35.5(L) 37.0 - 47.0 % [facility] External MCV 81.6 78 - 100 fl [facility] External MCH 26.0(L) 27 - 31 pg [facility] External MCHC 31.8(L) 32 - 36 g/dl [facility] External RDW 15.4(H) 11.5 - 14.0 % [facility] External Platelets 260 150 - 450 K/ul [facility] External MPV 9.7(H) 6 - 9.5 fl [facility] External Manual Differential NO [facility] 12/15/2023 4:34 AM EDT 12/15/2023 4:34 AM EDT us Miri Wu MD LAB BLOOD ORDERABLES Fin al Result [facility] documented in this encounter Visit Diagnoses Not on filedocumented in this encounter Additional Health Concerns Assessment Noted Time A fall risk assessment has been complete d for the patient 12/13/2023 10:49 AM EDT A Body Mass Index follow-up plan has been documented for the patient 12/13/2023 12:05 PM EDT documented as of this encounter Care Teams Leadership Program Internship Relationship Specialty Start Date End Date Waldemar Baltazar MD [address] [place] [address] PCP - General 01/06/23 Waldemar Baltazar MD [address] [place] [address] 01/06/23 documented as of this encounter
--- OUTSIDE RECORDS SUMMARY | 2024-07-18 08:33 | XMS_ITS | Encounter Summary ---
Author Organization [facility] Address [address] [place] [address] Care Team Providers Care Inventory Associate Name Role Phone Waldemar Baltazar MD Primary Care Provider Waldemar Baltazar MD Unavailable [phone] Encounter Details Date Type Department Care Team (Late st Contact Info) Description 07/25/2023 Abstract Obstetrics & Gynecology [address] [place] [address] Chris Olguin MD [address] [place] [address] Social History Tobacco Use Types [...] AM EST Routine Obstetrics & Gynecology [address] [place] [address] Chris Olguin MD [address] [place] [address] documented as of this encounter Visit Diagnoses Not on filedocumented in this encounter Additional Health Concerns Assessment Noted Time A fall risk assessment has been complete d for the patient 07/12/2023 1:27 PM EST A Body Mass Index follow-up plan has been documented for the patient 07/12/2023 1:34 PM EST documented as of this encounter Care Teams Inventory Associate Relationship Specialty Start Date End Date Waldemar Baltazar MD [address] [place] [address] PCP - General 01/06/23 Waldemar Baltazar MD [address] [place] [address] 01/06/23 documented as of this encounter
--- OUTSIDE RECORDS SUMMARY | 2024-07-18 08:33 | XMS_ITS | Encounter Summary ---
Author Organization [facility] Address [address] [place] [address] Care Team Providers Care Programmer Business Name Role Phone Waldemar Baltazar MD Primary Care Provider [phone] Waldemar Baltazar MD Unavailable [phone] Encounter Details Date Type Department Care Team (Late st Contact Info) Description 12/18/2023 11:30 AM EDT Clinical Support Obstetrics & Gynecology [facility] [place] [address] Social History Tobacco Use Types [...] Sign Reading Time Taken Comments Blood Pressure 133/83 12/18/2023 11:57 AM EDT Pulse - - Temperature - - Respiratory Rate - - Oxygen Saturation - - Inhaled Oxygen Concentration - - Weight - - Height - - Body Mass Index - - documented in this encounter Plan of Treatment Upcoming Encounters Date Type Department Care Team (Late st Contact Info) Description 08/01/2024 10:45 AM EST Routine [facility] Ob[facility]s [facility] [address] [place] [address] Chris Olguin MD [address] [place] [address] documented as of this encounter Visit Diagnoses Not on filedocumented in this encounter Additional Health Concerns Assessment Noted Time A fall risk assessment has been complete d for the patient 12/13/2023 10:49 AM EDT A Body Mass Index follow-up plan has been documented for the patient 12/18/2023 11:57 AM EDT documented as of this encounter Care Teams Programmer Business Relationship Specialty Start Date End Date Waldemar Baltazar MD [address] [place] [address] PCP - General 01/06/23 Waldemar Baltazar MD [address] [place] [address] 01/06/23 documented as of this encounter
--- OUTSIDE RECORDS SUMMARY | 2024-07-18 08:33 | XMS_ITS | Encounter Summary ---
Author Organization [facility] Address [address] [place] [address] Care Team Providers Care Operations Research Group Manager Name Role Phone Waldemar Baltazar MD Primary Care Provider Waldemar Baltazar MD Unavailable [phone] Encounter Details Date Type Department Care Team (Latest Contact Info) Description 10/04/2023 Travel Social History Tobacco Use Types Packs/Day Years Used Date Smoking Tobacco: Never Smokeless Tobacco: Never Alcohol Use Standard Drinks/Week Comments Never 0 (1 standard drink = 0.6 oz pur e alcohol) PHQ-2 Answer Date Recorded Patient Health Questionnaire-2 Score 0 10/04/2023 PHQ-2A Answer Date Recorded Patient Health Questionnaire-2 [...] AM EST Routine Obstetrics & Gynecology [address] [place] [address] Chris Olguin MD [address] [place] [address] documented as of this encounter Visit Diagnoses Not on filedocumented in this encounter Additional Health Concerns Assessment Noted Time A fall risk assessment has been complete d for the patient 10/04/2023 2:09 PM EST A Body Mass Index follow-up plan has been documented for the patient 10/04/2023 2:47 PM EST documented as of this encounter Care Teams Operations Research Group Manager Relationship Specialty Start Date End Date Waldemar Baltazar MD [address] [place] [address] PCP - General 01/06/23 Waldemar Baltazar MD [address] [place] [address] 01/06/23 documented as of this encounter
--- OUTSIDE RECORDS SUMMARY | 2024-07-18 08:33 | XMS_ITS | Encounter Summary ---
Author Organization [facility] Address [address] [place] [address] Care Team Providers Care Oral Surgery Assistant Name Role Phone Waldemar Baltazar MD Primary Care Provider [phone] Waldemar Baltazar MD Unavailable [phone] Encounter Details Date Type Department Care Team (Latest Contact Info) Description 10/18/2023 Travel Social History Tobacco Use Types Packs/Day [...] AM EST Routine Obstetrics & Gynecology [address] [place] [address] Chris Olguin MD [address] [place] [address] documented as of this encounter Visit Diagnoses Not on filedocumented in this encounter Additional Health Concerns Assessment Noted Time A fall risk assessment has been complete d for the patient 10/18/2023 2:06 PM EST A Body Mass Index follow-up plan has been documented for the patient 10/18/2023 2:25 PM EST documented as of this encounter Care Teams Oral Surgery Assistant Relationship Specialty Start Date End Date Waldemar Baltazar MD [address] [place] [address] PCP - General 01/06/23 Waldemar Baltazar MD [address] [place] [address] 01/06/23 documented as of this encounter
--- OUTSIDE RECORDS SUMMARY | 2024-07-18 08:33 | XMS_ITS | Encounter Summary ---
Author Organization [facility] Address [address] [place] [address] Care Team Providers Care Chronic Care Nurse Name Role Phone Waldemar Baltazar MD Primary Care Provider Waldemar Baltazar MD Unavailable [phone] Encounter Details Date Type Department Care Team (Late st Contact Info) Description 11/30/2023 Orders Only Obstetrics & Gynecology [address] [place] [address] Chris Olguin MD [address] [place] [address] Upper respiratory tract infection, unspecified type (Primary Dx) Social History Tobacco Use Types [...] AM EST Routine Obstetrics & Gynecology [address] [place] [address] Chris Olguin MD [address] [place] [address] documented as of this encounter Visit Diagnoses Diagnosis Upper respiratory tract infection, unspecified type- Primary documented in this encounter Additional Health Concerns Assessment Noted Time A fall risk assessment has been complete d for the patient 11/29/2023 10:25 AM EDT A Body Mass Index follow-up plan has been documented for the patient 11/29/2023 11:31 AM EDT documented as of this encounter Care Teams Chronic Care Nurse Relationship Specialty Start Date End Date Waldemar Baltazar MD [address] [place] [address] PCP - General 01/06/23 Waldemar Baltazar MD [address] [place] [address] 01/06/23 documented as of this encounter
--- OUTSIDE RECORDS SUMMARY | 2024-07-18 08:33 | XMS_ITS | Encounter Summary ---
Author Organization [facility] Address [address] [place] [address] Care Team Providers Care Electronic Train Control Technician Name Role Phone Waldemar Baltazar MD Primary Care Provider [phone] Waldemar Baltazar MD Unavailable [phone] Reason for Visit * Reason Onset Date Comments Med Refill 11/16/2023 Encounter Details Date Type Department Care Team (Late st Contact Info) Description 11/16/2023 Refill Obstetrics & Gynecology [address] [place] [address] [facility] [address] [place] [id number] Social History Tobacco Use Types Packs/Day Years [...] AM EST Routine Obstetrics & Gynecology [address] [place] [address] Chris Olguin MD [address] [place] [address] documented as of this encounter Visit Diagnoses Not on filedocumented in this encounter Additional Health Concerns Assessment Noted Time A fall risk assessment has been complete d for the patient 11/01/2023 8:31 AM EST A Body Mass Index follow-up plan has been documented for the patient 11/01/2023 8:53 AM EST documented as of this encounter Care Teams Electronic Train Control Technician Relationship Specialty Start Date End Date Waldemar Baltazar MD [address] [place] [address] PCP - General 01/06/23 Waldemar Baltazar MD [address] [place] [address] 01/06/23 documented as of this encounter
--- OUTSIDE RECORDS SUMMARY | 2024-07-18 08:33 | XMS_ITS | Encounter Summary ---
Author Organization [facility] Address [address] [place] [address] Care Team Providers Care Paper Sorter Name Role Phone Waldemar Baltazar MD Primary Care Provider Waldemar Baltazar MD Unavailable [phone] Reason for Visit * Reason Comments Ultrasound Meds updated, pleas e d/c other meds Fhr 134, cephalic, 3vc, bouchra 19.4cm, efw [id number], adq growth, bpp 8/8, bouchra wnl Encounter Details Date Type Department Care Team (Late st Contact Info) Description 11/29/2023 10:00 AM EDT Routine Obstetrics & Gynecology [address] [place] [address] Chris Olguin MD [address] [place] [address] 36 weeks gestation of (Primary Dx); Excessive growth affecting management of [...] Sign Reading Time Taken Comments Blood Pressure 128/82 11/29/2023 10:23 AM EDT Pulse - - Temperature - - Respiratory Rate - - Oxygen Saturation - - Inhaled Oxygen Concentration - - Weight 141 kg (310 lb 13.6 oz) 11/29/2023 10:23 AM EDT Height - - Body Mass Index 51.73 02/20/2023 3:34 PM EDT documented in this encounter Miscellaneous Notes * Progress Notes - Chris Olguin MD - 11/29/2023 10:00 AM EDT Subjective Chief Complaint Patient presents with Ultrasound Meds updated, please d/c other meds Fhr 134, cephalic, 3vc, bouchra 19.4cm, efw [id number], adq growth, bpp 8, bouchra wnl Reid Domingo is a 18 y.o. at 36w1d with a working estimated date of delivery of 12/26/2023, by Ultrasound who presents for a routine visit. She denies vaginal bleeding, leakage of fluid, decreased movements, or contractions. Her is complicated by: LGA The following portions of the chart were reviewed this encounter and updated as appropriate: Meds Objective Physical Exam Weight: 141 kg (310 lb 13.6 oz) Expected Total Weight Gain: 5 kg (11 lb)-9 kg (19 lb) Pregravid BMI: 47.33 BP: 128/82 Heart Rate: +us Presentation: [facility] Urine [...] 1051 98 Imaging Growth US OK - VTX - LGA 4650 grams - BPP 04/04 Assessment/Plan Diagnoses and all orders for this visit: 36 weeks gestation of - Group B Streptococcus by PCR Excessive growth affecting management of in third trimester, single or unspecified fetus Continue vitamin. Labs reviewed. GBS taken. Expected mode of delivery LTCS Follow up in 1 week for a routine visit. documented in this encounter Plan of Treatment Upcoming Encounters Date Type Department Care Team (Late st Contact Info) Description 08/01/2024 10:45 AM EST Routine Obstetrics & Gynecology [address] [place] [address] Chris Olguin MD [address] [place] [address] documented as of this encounter Procedures Procedure Name Priority Date/Time Associated Diagnosis Comments GROUP B STREPTOCOCCUS BY PCR Routine 11/29/2023 10:27 AM EDT 36 weeks gestation of documented in this encounter Results * Group B Streptococcus by PCR (11/29/2023 10:27 AM EDT) Group B Streptococcus PCR Result Not Detected Not Detected 12/01/2023 3:43 AM EDT [facility] Swab Rectovaginal / Unknown Non-blood Collection / Unknown 11/29/2023 10:27 AM EDT 11/29/2023 1:05 PM EDT us Chris Olguin MD LAB BLOOD ORDERABLES Final Resu [facility] [address] [place] [address] documented in this encounter Visit Diagnoses Diagnosis 36 weeks gestation of - Primary Excessive growth affecting management of in third trimester, single or unspecified fetus documented in this encounter Additional Health Concerns Assessment Noted Time A fall risk assessment has been complete d for the patient 11/29/2023 10:25 AM EDT A Body Mass Index follow-up plan has been documented for the patient 11/29/2023 11:31 AM EDT documented as of this encounter Care Teams Paper Sorter Relationship Specialty Start Date End Date Waldemar Baltazar MD [address] [place] [address] PCP - General 01/06/23 Waldemar Baltazar MD [address] [place] [address] 01/06/23 documented as of this encounter
--- OUTSIDE RECORDS SUMMARY | 2024-07-18 08:33 | XMS_ITS | Encounter Summary ---
Author Organization [facility] Address [address] [place] [address] Care Team Providers Care Advertising Strategist Name Role Phone Waldemar Baltazar MD Primary Care Provider [phone] Waldemar Baltazar MD Unavailable [phone] Reason for Referral * Imaging (Routine) - Closed Specialty Diagnoses / Procedures Referred By Contac t Referred To Contact Diagnoses Significant discrepancy between uterine size and clinical dates, antepartum, third trimester Procedures OB US Follow Up Transabdominal Approach Chris Olguin MD [address] [place] [address] Phone: tel: fax: Referral ID Status Reason Start Date Expiration Date Visits Re quested Visits Authorized [id number] Closed 10/04/2023 04/04/2025 1 1 Reason for Visit * Reason Comments Routine Visit Er on Monday for fluids, and iv zofran, patient would like to speak to Dr Olguin about getting fluids 1-2 times a week to keep patient from getting dehydrated again Encounter Details Date Type Department Care Team (Late st Contact Info) Description 10/04/2023 2:00 PM EST Routine Obstetrics & Gynecology [address] [place] [address] Chris Olguin MD [address] [place] [address] 28 weeks gestation of (Primary Dx); Significant discrepancy between uterine size and clinical dates, antepartum, third trimester; Hyperemesis gravidarum Social History Tobacco Use Types Packs/Day Years [...] Sign Reading Time Taken Comments Blood Pressure 126/79 10/04/2023 2:09 PM EST Pulse - - Temperature - - Respiratory Rate - - Oxygen Saturation - - Inhaled Oxygen Concentration - - Weight 138 kg (305 lb 1.9 oz) 10/04/2023 2:09 PM EST Height - - Body Mass Index 50.77 02/20/2023 3:34 PM EDT documented in this encounter Miscellaneous Notes * Progress Notes - Chris Olguin MD - 10/04/2023 2:00 PM EST Subjective Chief Complaint Patient presents with Routine Visit Er on Monday for fluids, and iv zofran, patient would like to speak to Dr Olguin about getting fluids 1-2 times a week to keep patient from getting dehydrated again Reid Domingo is a 18 y.o. at 28w1d with a working estimated date of delivery of 12/26/2023, by Ultrasound who presents for a routine visit. She denies vaginal bleeding, leakage of fluid, decreased movements, or contractions. N has returned - not able to keep any real volume of fluids down. Her is complicated by: HG The following portions of the chart were reviewed this encounter and updated as appropriate: ALL Objective Physical Exam Weight: 138 kg (305 lb 1.9 oz) Expected Total Weight Gain: 5 kg (11 lb)-9 kg (19 lb) Pregravid BMI: 47.33 BP: 126/79 Heart Rate: 140 Fundal Height (cm): 37 [...] Diagnoses and all orders for this visit: 28 weeks gestation of Significant discrepancy between uterine size and clinical dates, antepartum, third trimester - OB US Follow Up Transabdominal Approach; Future Hyperemesis gravidarum Continue vitamin. Labs reviewed. GBS at 36 weeks Tdap done today Schedule IVF at [facility] Expected mode of delivery Follow up in 2 weeks for a routine visit. documented in this encounter Plan of Treatment Upcoming Encounters Date Type Department Care Team (Late st Contact Info) Description 08/01/2024 10:45 AM EST Routine [facility] [address] [place] [address] Chris Olguin MD [address] [place] [address] documented as of this encounter Results * OB US Follow Up Transabdominal Approach (11/01/2023 8:30 AM EST) Anatomical Region Laterality Modality Body Ultrasound 11/01/2023 8:01 AM EST Impressions 11/01/2023 10:17 AM EST The OB Ultrasound you requested has been resulted. Please navigate to the Imaging tab in [employer] for review. This message has been generated by the interface. Narrative Procedure Note BeckerJeb Sherman MD - 11/01/2023 IMPRESSION: The OB Ultrasound you requested has been resulted. Please navigate to theImaging tab in [employer] for review. This message has been generated by [employer] us Chris Olguin MD IMG OB US PROCEDURES Final Resu lt documented in this encounter Visit Diagnoses Diagnosis 28 weeks gestation of - Primary Significant discrepancy between uterine size and clinical dates, antepartum, third trimester Hyperemesis gravidarum Mild hyperemesis gravidarum, unspecified as to episode of care Significant discrepancy between uterine size and clinical dates, antepartum, third trimester documented in this encounter Administered Medications Inactive Administered Medications - up to 3 most recent administrations Medication Order MAR Action Action Date Dose Rate Site Tdap (BoostRIX) 5-2.5-18.5 LF-MCG/0.5 vaccine 0.5 mL 0.5 mL, Intramuscular, Once, 1 dose, On Mon10/04/23 at 1500, TodayIndications:28 weeks gestation of ,Significant discrepancy between uterine size and clinical dates, antepartum, third trimester,Hyperemesis gravidarum Given 10/04/2023 2:38 PM EST 0.5 mL Left Deltoid documented in this encounter Additional Health Concerns Assessment Noted Time A fall risk assessment has been complete d for the patient 10/04/2023 2:09 PM EST A Body Mass Index follow-up plan has been documented for the patient 10/04/2023 2:47 PM EST documented as of this encounter Care Teams Advertising Strategist Relationship Specialty Start Date End Date Waldemar Baltazar MD [address] [place] [address] PCP - General 01/06/23 Waldemar Baltazar MD [address] [place] [address] 01/06/23 documented as of this encounter
--- OUTSIDE RECORDS SUMMARY | 2024-07-18 08:33 | XMS_ITS | Encounter Summary ---
Author Organization [facility] Address [address] [place] [address] Care Team Providers Care Rectifying Attendant Name Role Phone Waldemar Baltazar MD Primary Care Provider [phone] Waldemar Baltazar MD Unavailable [phone] Encounter Details Date Type Department Care Team (Latest Contact Info) Description 12/28/2023 Travel Social History Tobacco Use Types Packs/Day Years Used Date Smoking Tobacco: Never Smokeless Tobacco: Never Alcohol Use Standard Drinks/Week Comments Never 0 (1 standard drink = 0.6 oz pur e alcohol) PHQ-2 Answer Date Recorded Patient Health Questionnaire-2 Score 0 12/28/2023 Cummings Depression Scale Answer Date Recorded Cummings Depression Scale Total 1 12/28/2023 The thought [...] EST Routine [facility] [address] [place] [address] Chris Olguin MD [address] [place] [address] documented as of this encounter Visit Diagnoses Not on filedocumented in this encounter Additional Health Concerns Assessment Noted Time A fall risk assessment has been complete d for the patient 12/28/2023 11:31 AM EDT A Body Mass Index follow-up plan has been documented for the patient 12/28/2023 7:44 PM EDT documented as of this encounter Care Teams Rectifying Attendant Relationship Specialty Start Date End Date Waldemar Baltazar MD [address] [place] [address] PCP - General 01/06/23 Waldemar Baltazar MD [address] [place] [address] 01/06/23 documented as of this encounter
--- OUTSIDE RECORDS SUMMARY | 2024-07-18 08:33 | XMS_ITS | Encounter Summary ---
Author Organization [facility] Address [address] [place] [address] Care Team Providers Care Outsole Flexer Name Role Phone Waldemar Baltazar MD Primary Care Provider Waldemar Baltazar MD Unavailable Reason for Visit * Reason Comments Routine Visit Encounter Details Date Type Department Care Team (Late st Contact Info) Description 08/09/2023 2:30 PM EST Routine Obstetrics & Gynecology [address] [place] [address] Miri Wu MD [address] [place] [address] state, incidental (Primary Dx) Social [...] Sign Reading Time Taken Comments Blood Pressure 124/78 08/09/2023 3:15 PM EST Pulse - - Temperature - - Respiratory Rate - - Oxygen Saturation - - Inhaled Oxygen Concentration - - Weight 137 kg (302 lb 0.5 oz) 08/09/2023 3:15 PM EST Height - - Body Mass Index 50.26 02/20/2023 3:34 PM EDT documented in this encounter Miscellaneous Notes * Assessment & Plan Note - Ashley Suarez - 08/09/2023 3:26 PM ESTAssociated Problem(s): state, incidental (Resolved 12/28/2023) - US today: limited normal anatomy, all measurements above 90% - continue PNV and baby ASA - Glucola & CBC at next appt - RTC 4 weeks * Progress Notes - Ashley Suarez - 08/09/2023 2:30 PM EST Note Subjective Ms. Domingo is a 18yo @ 20w1d here for a visit with anatomy US. No contractions,vaginal bleeding, and LOF. Endorses good movement. Reports taking PNV and bASA. No questions or complaints at this time. Prelim ilya US: vertex, post plac, AC 91%, all measurements > 90% Objective Visit Vitals BP 124/78 Heart Rate: US Assessment Problem List Items Addressed This Visit Other state, incidental - Primary - US today: limited normal anatomy, all measurements above 90% - continue PNV and baby ASA - Glucola & CBC at next appt - RTC 4 weeks Cosigned by Miri Wu MD at 08/09/2023 3:39 PM EST Associated attestation - Miri Wu MD - 08/09/2023 3:39 PM EST I saw and evaluated the patient with the medical/MAINTENANCE MECHANIC ELEVATORS/PA student. I discussed the case with the medical/MAINTENANCE MECHANIC ELEVATORS/PA student and agree with the findings and plan as documented. I personally performed the Examand Medical Decision Making. documented in this encounter Plan of Treatment Upcoming Encounters Date Type Department Care Team (Late st Contact Info) Description 08/01/2024 10:45 AM EST Routine [facility] [address] [place] [address] Chris Olguin MD [address] [place] [address] documented as of this encounter Visit Diagnoses Diagnosis state, incidental- Primary documented in this encounter Additional Health Concerns Assessment Noted Time A fall risk assessment has been complete d for the patient 08/09/2023 3:17 PM EST A Body Mass Index follow-up plan has been documented for the patient 08/09/2023 3:39 PM EST documented as of this encounter Care Teams Outsole Flexer Relationship Specialty Start Date End Date Waldemar Baltazar MD [address] [place] [address] PCP - General 01/06/23 Waldemar Baltazar MD [address] [place] [address] 01/06/23 documented as of this encounter
--- OUTSIDE RECORDS SUMMARY | 2024-07-18 08:33 | XMS_ITS | Encounter Summary ---
Author Organization [facility] Address [address] [place] [address] Care Team Providers Care Box Strapper Name Role Phone Waldemar Baltazar MD Primary Care Provider [phone] Waldemar Baltazar MD Unavailable [phone] Reason for Referral * Imaging (Routine) - Closed Specialty Diagnoses / Procedures Referred By Contac t Referred To Contact Diagnoses Significant discrepancy between uterine size and clinical dates, antepartum, third trimester Procedures OB US Follow Up Transabdominal Approach Chris Olguin MD [address] [place] [address] Phone: tel: fax: Referral ID Status Reason Start Date Expiration Date Visits Re quested Visits Authorized [id number] Closed 11/01/2023 05/02/2025 1 1 Reason for Visit * Imaging (Routine) - Closed Specialty Diagnoses / Procedures Referred By Contac t Referred To Contact Diagnoses Significant discrepancy between uterine size and clinical dates, antepartum, third trimester Procedures OB US Follow Up Transabdominal Approach Chris Olguin MD [address] [place] [address] Phone: tel: fax: Referral ID Status Reason Start Date Expiration Date Visits Re quested Visits Authorized [id number] Closed 11/01/2023 05/02/2025 1 1 Encounter Details Date Type Department Care Team (Latest Contact Info) Description 11/29/2023 9:59 AM EDT - 11/29/2023 11:59 PM EDT Hospital Encounter [facility] [address] [place] [address] Significant discrepancy between uterine size and clinical [...] time each day. aspirin 81 MG EC tabletIndication s: state, incidental Take 1 tablet (81 mg) by mouth 1 (one) time each day. 30 tablet 11 06/14/2023 06/13/2024 ondansetron (Zofran) 8 MG tablet Take 1 tablet (8 mg) by mouth twice a day as needed for nausea 20 tablet 5 05/18/2023 01/13/2024 azithromycin (Zithromax) 250 MG tablet Take 1 tablet (250 mg) by mouth 1 (one) time each day. Take 2 tablets day 1 followed by 1 tablet daily on days 2 thru 5 6 tablet 11/16/2023 01/26/2024 documented as of this encounter Plan of Treatment Upcoming Encounters Date Type Department Care Team (Late st Contact Info) Description 08/01/2024 10:45 AM EST Routine Obstetrics & Gynecology [address] [place] [address] Chris Olguin MD [address] [place] [address] documented as of this encounter Procedures Procedure Name Priority Date/Time Associated Diagnosis Comments OB US FOLLOW UP TRANSABDOMINAL APPROACH Routine 11/29/2023 10:24 AM EDT Significant discrepancy between uterine size and clinical dates, antepartum, third trimester documented in this encounter Results * OB US Follow Up Transabdominal Approach (11/29/2023 10:24 AM EDT) Anatomical Region Laterality Modality Body Ultrasound 11/29/2023 9:58 AM EDT Impressions 11/30/2023 8:25 AM EDT The OB Ultrasound you requested has been resulted. Please navigate to the Imaging tab in [employer] for review. This message has been generated by the interface. Narrative Procedure Note Jeb Madrid MD - 11/30/2023 IMPRESSION: The OB Ultrasound you requested has been resulted. Please navigate to theImaging tab in [employer] for review. This message has been generated [...] documented as of this encounter Care Teams Box Strapper Relationship Specialty Start Date End Date Waldemar Baltazar MD [address] [place] [address] PCP - General 01/06/23 Waldemar Baltazar MD [address] [place] [address] 01/06/23 documented as of this encounter
--- OUTSIDE RECORDS SUMMARY | 2024-07-18 08:33 | XMS_ITS | Encounter Summary ---
Author Organization [facility] Address [address] [place] [address] Care Team Providers Care Supervisor Blueprinting And Photocopy Name Role Phone Waldemar Baltazar MD Primary Care Provider Waldemar Baltazar MD Unavailable [phone] Encounter Details Date Type Department Care Team (Latest Contact Info) Description 08/09/2023 Travel Social History Tobacco Use Types Packs/Day [...] AM EST Routine Obstetrics & Gynecology [address] [place] [address] Chris Olguin MD [address] [place] [address] documented as of this encounter Visit Diagnoses Not on filedocumented in this encounter Additional Health Concerns Assessment Noted Time A fall risk assessment has been complete d for the patient 08/09/2023 3:17 PM EST A Body Mass Index follow-up plan has been documented for the patient 08/09/2023 3:39 PM EST documented as of this encounter Care Teams Supervisor Blueprinting And Photocopy Relationship Specialty Start Date End Date Waldemar Baltazar MD [address] [place] [address] PCP - General 01/06/23 Waldemar Baltazar MD [address] [place] [address] 01/06/23 documented as of this encounter
--- OUTSIDE RECORDS SUMMARY | 2024-07-18 08:33 | XMS_ITS | Encounter Summary ---
Author Organization [facility] Address [address] [place] [address] Care Team Providers Care Case Assistant Name Role Phone Waldemar Baltazar MD Primary Care Provider [phone] Waldemar Baltazar MD Unavailable [phone] Encounter Details Date Type Department Care Team (Latest Contact Info) Description 11/29/2023 Travel Social History Tobacco Use Types Packs/Day [...] AM EST Routine Obstetrics & Gynecology [address] [place] [address] Chris Olguin MD [address] [place] [address] documented as of this encounter Visit Diagnoses Not on filedocumented in this encounter Additional Health Concerns Assessment Noted Time A fall risk assessment has been complete d for the patient 11/29/2023 10:25 AM EDT A Body Mass Index follow-up plan has been documented for the patient 11/29/2023 11:31 AM EDT documented as of this encounter Care Teams Case Assistant Relationship Specialty Start Date End Date Waldemar Baltazar MD [address] [place] [address] PCP - General 01/06/23 Waldemar Baltazar MD [address] [place] [address] 01/06/23 documented as of this encounter
--- OUTSIDE RECORDS SUMMARY | 2024-07-18 08:33 | XMS_ITS | Encounter Summary ---
Author Organization [facility] Address [address] [place] [address] Care Team Providers Care Plc Programmer Name Role Phone Waldemar Baltazar MD Primary Care Provider Waldemar Baltazar MD Unavailable Reason for Visit * Reason Onset Date Comments HCN - Patient Message 06/22/2023 Encounter Details Date Type Department Care Team (Late st Contact Info) Description 06/22/2023 Telephone Obstetrics & Gynecology [address] [place] [address] Miri Wu MD [address] [place] [address] HCN - Patient Message Social History Tobacco Use Types Packs/Day Years [...] * Telephone Encounter - Adamaris Redmond - 06/22/2023 9:08 AM EDT Rob called patient back with results * Telephone Encounter - Camilla Beyer - 06/22/2023 8:45 AM EDT Patient Phone Message Reason for Call: she is returning a call to Rob. Please call again. Best contact number and optimal time of day to reach caller:[phone] Note: Please do not reply to this message. Follow-up communication and further actions as a result of this message need to be communicated with the patient directly, if the patient is not active onMyChart. If the patient is active on MyChart, they will receive notification of the communication/outcome via [employer]. documented in this encounter Plan of Treatment Upcoming Encounters Date Type Department Care Team (Late st Contact Info) Description 08/01/2024 10:45 AM EST Routine [facility] [address] [place] [address] Chris Olguin MD [address] [place] [address] documented as of this encounter Visit Diagnoses Not on filedocumented in this encounter Additional Health Concerns Assessment Noted Time A fall risk assessment has been complete d for the patient 06/14/2023 3:32 PM EDT documented as of this encounter Care Teams Plc Programmer Relationship Specialty Start Date End Date Waldemar Baltazar MD [address] [place] [address] PCP - General 01/06/23 Waldemar Baltazar MD [address] [place] [address] 01/06/23 documented as of this encounter
--- OUTSIDE RECORDS SUMMARY | 2024-07-18 08:33 | XMS_ITS | Encounter Summary ---
Author Organization [facility] Address [address] [place] [address] Care Team Providers Care Manager Cardiovascular Name Role Phone Waldemar Baltazar MD Primary Care Provider [phone] Waldmear Baltazar MD Unavailable [phone] Encounter Details Date Type Department Care Team (Latest Contact Info) Description 11/20/2023 Travel Social History Tobacco Use Types Packs/Day [...] AM EST Routine Obstetrics & Gynecology [address] [place] [address] Chris Olguin MD [address] [place] [address] documented as of this encounter Visit Diagnoses Not on filedocumented in this encounter Additional Health Concerns Assessment Noted Time A fall risk assessment has been complete d for the patient 11/20/2023 3:23 PM EDT A Body Mass Index follow-up plan has been documented for the patient 11/20/2023 3:47 PM EDT documented as of this encounter Care Teams Manager Cardiovascular Relationship Specialty Start Date End Date Waldemar Baltazar MD [address] [place] [address] PCP - General 01/06/23 Waldemar Baltazar MD [address] [place] [address] 01/06/23 documented as of this encounter
--- OUTSIDE RECORDS SUMMARY | 2024-07-18 08:34 | XMS_ITS | Encounter Summary ---
Author Organization [facility] Address [address] [place] [address] Care Team Providers Care Solar Sales Representative And Assessor Name Role Phone Waldemar Baltazar MD Primary Care Provider Waldemar Baltazar MD Unavailable [phone] Encounter Details Date Type Department Care Team (Latest Contact Info) Description 01/18/2023 Travel Social History Tobacco Use Types Packs/Day Years Used Date Smoking Tobacco: Never Smokeless Tobacco: Never Alcohol Use Standard Drinks/Week Comments Never 0 (1 standard drink = 0.6 oz pur e alcohol) PHQ-2 Answer Date Recorded Patient Health Questionnaire-2 Score 0 01/18/2023 Comments Yes Sex and Gender Information Value Date Recorded Sex Assigned at Not on file Legal Sex Female 6:20 PM EDT Gender Identity Not on file Sexual Orientation Not on file documented as of this encounter Plan of Treatment Upcoming Encounters Date Type Department Care Team (Late st Contact Info) Description 08/01/2024 10:45 AM EST Routine Obstetrics & Gynecology [address] [place] [address] Chris Olguin MD [address] [place] [address] documented as of this encounter Visit Diagnoses Not on filedocumented in this encounter Additional Health Concerns Assessment Noted Time A fall risk assessment has been complete d for the patient 01/18/2023 10:52 AM EDT documented as of this encounter Care Teams Solar Sales Representative And Assessor Relationship Specialty Start Date End Date Waldemar Baltazar MD [address] [place] [address] PCP - General 01/06/23 Waldemar Baltazar MD [address] [place] [address] 01/06/23 documented as of this encounter
--- OUTSIDE RECORDS SUMMARY | 2024-07-18 08:34 | XMS_ITS | Encounter Summary ---
Author Organization [facility] Address [address] [place] [address] Care Team Providers Care Site Administrator Name Role Phone Waldemar Baltazar MD Primary Care Provider Waldemar Baltazar MD Unavailable [phone] Encounter Details Date Type Department Care Team (Latest Contact Info) Description 02/20/2023 Travel Social History Tobacco Use Types Packs/Day Years Used Date Smoking Tobacco: Never Smokeless Tobacco: Never Alcohol Use Standard Drinks/Week Comments Never 0 (1 standard drink = 0.6 oz pur e alcohol) PHQ-2 Answer Date Recorded Patient Health Questionnaire-2 Score 0 02/20/2023 Comments Yes Sex and Gender Information Value Date Recorded Sex Assigned at Not on file Legal Sex Female 6:20 PM EDT Gender Identity Not on file Sexual Orientation Not on file documented as of this encounter Plan of Treatment Upcoming Encounters Date Type Department Care Team (Late st Contact Info) Description 08/01/2024 10:45 AM EST Routine Obstetrics & Gynecology [address] [place] [address] Chris Olguin MD [address] [place] [address] documented as of this encounter Visit Diagnoses Not on filedocumented in this encounter Additional Health Concerns Assessment Noted Time A fall risk assessment has been complete d for the patient 02/20/2023 3:35 PM EDT documented as of this encounter Care Teams Site Administrator Relationship Specialty Start Date End Date Waldemar Baltazar MD [address] [place] [address] PCP - General 01/06/23 Waldemar Baltazar MD [address] [place] [address] 01/06/23 documented as of this encounter
--- OUTSIDE RECORDS SUMMARY | 2024-07-18 08:34 | XMS_ITS | Encounter Summary ---
Author Organization [facility] Address [address] [place] [address] Care Team Providers Care Supervisor Brooder Farm Name Role Phone Unavailable Primary Care Provider Unavailabl e Encounter Details Date Type Department Care Team (Late st Contact Info) Description 02/24/2015 [facility] Vitals Encounter [facility] OUTPATIENT CONVERSIONS [address] [place] [address] ProviderJovan MD [address] [place] [address] Social History Tobacco Use Types Packs/Day Years Used Date Smoking Tobacco: Never Assessed Comments Unknown Sex and Gender Information Value Date Recorded Sex Assigned at Not on file Legal Sex Female 6:20 PM EDT Gender Identity Not on file Sexual Orientation Not on file documented as of this encounter Last Filed Vital Signs Vital Sign Reading Time Taken Comments Blood Pressure - - Pulse - - Temperature - - Respiratory Rate - - Oxygen Saturation - - Inhaled Oxygen Concentration - - Weight 90.5 kg (199 lb 8.3 oz) 02/25/20 15 10:54 AM EDT Height 162.5 cm (5' 3.98 ) 02/24/2015 1 0:54 AM EDT Body Mass Index 34.27 02/24/2015 10:54 AM EDT Body Mass Index Percentile 99.61% 02/24 10:54 AM EDT Growth Chart: [facility] (Girls, 2- 20 Years) documented in this encounter Plan of Treatment Upcoming Encounters Date Type Department Care Team (Late st Contact Info) Description 08/01/2024 10:45 AM EST Routine Obstetrics & Gynecology [address] [facility] [place] [address] Chris Olguin MD [address] [place] [address] documented as of this encounter Visit Diagnoses Not on filedocumented in this encounter
--- OUTSIDE RECORDS SUMMARY | 2024-07-18 08:34 | XMS_ITS | Encounter Summary ---
Author Organization [facility] Address [address] [place] [address] Care Team Providers Care Blending Supervisor Name Role Phone Waldemar Baltazar MD Primary Care Provider Waldemar Baltazar MD Unavailable [phone] Encounter Details Date Type Department Care Team (Latest Contact Info) Description 04/19/2023 Travel Social History Tobacco Use Types Packs/Day [...] Routine Obstetrics & Gynecology [address] [place] [address] Chris Olguin MD [address] [place] [address] documented as of this encounter Visit Diagnoses Not on filedocumented in this encounter Additional Health Concerns Assessment Noted Time A fall risk assessment has been complete d for the patient 02/20/2023 3:35 PM EDT documented as of this encounter Care Teams Blending Supervisor Relationship Specialty Start Date End Date Waldemar Baltazar MD [address] [place] [address] PCP - General 01/06/23 Waldemar Baltazar MD [address] [place] [address] 01/06/23 documented as of this encounter
--- OUTSIDE RECORDS SUMMARY | 2024-07-18 08:34 | XMS_ITS | Encounter Summary ---
Author Organization [facility] Address [address] [place] [address] Care Team Providers Care Police Captain Name Role Phone Unavailable Primary Care Provider Unavailabl e Encounter Details Date Type Department Care Team (Late st Contact Info) Description 05/14/[address] [facility] AE[facility] [address] [facility] OUTPATIENT CONVERSIONS [address] [place] [address] ProviderJovan MD [address] [place] [address] Social History Tobacco Use Types Packs/Day [...] - Inhaled Oxygen Concentration - - Weight 90 kg (198 lb 7 oz) 05/14/2015 1:13 PM ED T Height 165.1 cm (5' 5 ) 05/14/2015 1:13 PM EDT Body Mass Index 33.02 05/14/2015 1:13 PM EDT Body Mass Index Percentile 99.27% 05/14/2015 1:1 3 PM EDT Growth Chart: [facility] (Girls, 2- 20 Years) documented in this encounter Plan of Treatment Upcoming Encounters Date Type Department Care Team (Late st Contact Info) Description 08/01/2024 10:45 AM EST Routine Obstetrics & Gynecology [address] [place] [address] Chris Olguin MD [address] [place] [address] documented as of this encounter Visit Diagnoses Not on filedocumented in this encounter
--- OUTSIDE RECORDS SUMMARY | 2024-07-18 08:34 | XMS_ITS | Encounter Summary ---
Author Organization [facility] Address [address] [place] [address] Care Team Providers Care Human Resource Professional Name Role Phone Waldemar Baltazar MD Primary Care Provider Waldemar Baltazar MD Unavailable [phone] Reason for Referral * Imaging (Routine) - Closed Specialty Diagnoses / Procedures Referred By Contac t Referred To Contact Diagnoses state, incidental Procedures OB US Detail Anatomy Miri Wu MD [address] [place] [address] Phone: tel: fax: Referral ID Status Reason Start Date Expiration Date Visits Re quested Visits Authorized [id number] Closed 06/14/2023 12/13/2024 1 1 Reason for Visit * Reason Comments Routine Visit NT ultrasound and NIPT today Encounter Details Date Type Department Care Team (Late st Contact Info) Description 06/14/2023 3:00 PM EDT Routine Obstetrics & Gynecology [address] [place] [address] Miri Wu MD [address] [place] [address] state, incidental (Primary Dx) Social History Tobacco Use Types Packs/Day Years Used Date Smoking Tobacco: Never Smokeless Tobacco: Never Alcohol Use Standard Drinks/Week Comments Never 0 (1 standard drink = 0.6 oz pur e alcohol) PHQ-2 Answer Date Recorded Patient Health Questionnaire-2 Score 0 06/14/2023 Comments Yes Sex and Gender Information Value Date Recorded Sex Assigned at Not on file Legal Sex Female 6:20 PM EDT Gender Identity Not on file Sexual Orientation Not on file documented as of this encounter Last Filed Vital Signs Vital Sign Reading Time Taken Comments Blood Pressure 107/62 06/14/2023 3:14 PM EDT Pulse - - Temperature - - Respiratory Rate - - Oxygen Saturation - - Inhaled Oxygen Concentration - - Weight 135 kg (297 lb 9.9 oz) 06/14/2023 3:14 PM EDT Height - - Body Mass Index 49.53 02/20/2023 3:34 PM EDT documented in this encounter Miscellaneous Notes * Assessment & Plan Note - Miri Wu MD - 06/14/2023 3:17 PM EDT Associated Problem(s): state, incidental (Resolved 12/28/2023) - labs reviewed - normal NT today, NIPT today - continue PNV - start baby ASA today for pre-eclampsia prevention - ilya US ordered - RTC 4 weeks * Progress Notes - Miri Wu MD - 06/14/2023 3:00 PM EDT Note Subjective Ms. Domingo is a 18yo @ 12w1d here for a visit and NT ultrasound. Doing well today. Has some nausea, but it is improving. No vaginal bleeding. Objective Visit Vitals BP 107/62 Heart Rate: US Assessment Problem List Items Addressed This Visit Other state, incidental - Primary - labs reviewed - normal NT today, NIPT today - continue PNV - start baby ASA today for pre-eclampsia prevention - ilya US ordered - RTC 4 weeks Relevant Medications aspirin 81 MG EC tablet Other Relevant Orders OB US Detail Anatomy Non-Invasive Aneuploidy Screen, by cell-free DNA Sequencing (SO) documented in this encounter Plan of Treatment Upcoming Encounters Date Type Department Care Team (Late st Contact Info) Description 08/01/2024 10:45 AM EST Routine [facility] [address] [place] [address] Chris Olguin MD [address] [place] [address] documented as of this encounter Results * OB US Detail Anatomy (08/09/2023 3:17 PM EST) Anatomical Region Laterality Modality Body Ultrasound 08/09/2023 2:25 PM EST Impressions 08/11/2023 10:15 AM EST The OB Ultrasound you requested has been resulted. Please navigate to the Imaging tab in [employer] for review. This message has been generated by the interface. Narrative Procedure Note Jeb Madrid MD - 08/11/2023 IMPRESSION: The OB Ultrasound you requested has been resulted. Please navigate to theImaging tab in [employer] for review. This message has been generated by theinterface. us Miri Wu MD IMG OB US PROCEDURES Fin al Result documented in this encounter Visit Diagnoses Diagnosis state, incidental- Primary state, incidental documented in this encounter Additional Health Concerns Assessment Noted Time A fall risk assessment has been complete d for the patient 06/14/2023 3:32 PM EDT documented as of this encounter Care Teams Human Resource Professional Relationship Specialty Start Date End Date Waldemar Baltazar MD [address] [place] [address] PCP - General 01/06/23 Waldemar Baltazar MD [address] [place] [address] 01/06/23 documented as of this encounter
--- OUTSIDE RECORDS SUMMARY | 2024-07-18 08:34 | XMS_ITS | Encounter Summary ---
Author Organization [facility] Address [address] [place] [address] Care Team Providers Care Agriculture Mechanic Name Role Phone Waldemar Baltazar MD Primary Care Provider Waldemar Baltazar MD Unavailable [phone] Encounter Details Date Type Department Care Team (Late st Contact Info) Description 02/06/2023 Telephone Obstetrics & Gynecology [address] [place] [address] Miri Wu MD [address] [place] [address] Social History Tobacco Use Types [...] encounter Miscellaneous Notes * Telephone Encounter - Hilda Roldan - 02/06/2023 9:44 AM EDT Clinical Concern/Question Reason for Call: Pt called in to cancel her POND SAWYER U/S for today because she tested positive for Covidyesterday. Asking for a call back to get that rescheduled. Best contact number: [phone] (mobile) Optimal time of day to reach caller: ANYTIME Additional comments/information from caller: U/S reschedule Note: Please do not reply to this message. Follow-up communication and further actions as a result of this message need to be communicated with the patient directly, if the patient is not active onMyChart. If the patient is active on MyChart, they will receive notification of the communication/outcome via [employer]. documented in this encounter Plan of Treatment Upcoming Encounters Date Type Department Care Team (Late st Contact Info) Description 08/01/2024 10:45 AM EST Routine [facility] [address] [place] [address] Chris Olguin MD [address] [place] [address] documented as of this encounter Visit Diagnoses Not on filedocumented in this encounter Additional Health Concerns Assessment Noted Time A fall risk assessment has been complete d for the patient 01/18/2023 10:52 AM EDT documented as of this encounter Care Teams Agriculture Mechanic Relationship Specialty Start Date End Date Waldemar Baltazar MD [address] [place] [address] PCP - General 01/06/23 Waldemar Baltazar MD [address] [place] [address] 01/06/23 documented as of this encounter
--- OUTSIDE RECORDS SUMMARY | 2024-07-18 08:34 | XMS_ITS | Encounter Summary ---
Author Organization [facility] Address [address] [place] [address] Care Team Providers Care Carousel Operator Name Role Phone Waldemar Baltazar MD Primary Care Provider [phone] Waldemar Baltazar MD Unavailable [phone] Reason for Referral * Imaging (Routine) - Closed Specialty Diagnoses / Procedures Referred By Contac t Referred To Contact Diagnoses state, incidental Procedures OB US Nuchal Translucency Chris Olguin MD [address] [place] [address] Phone: tel: fax: Referral ID Status Reason Start Date Expiration Date Visits Re quested Visits Authorized [id number] Closed 05/18/2023 11/16/2024 1 1 Reason for Visit * Reason Comments Routine Visit Doing okay. Asked for zofran since she is 8 wks now. Will send. Dating today. Arndt FHR 182. Size = dates. Encounter Details Date Type Department Care Team (Late Contact Info) Description 05/18/2023 8:15 AM EDT Routine Obstetrics & Gynecology [address] [place] [address] Chris Olguin MD [address] [place] [address] state, incidental (Primary Dx) Social History Tobacco Use Types Packs/Day Years Used Date Smoking Tobacco: Never Smokeless Tobacco: Never Alcohol Use Standard Drinks/Week Comments Never 0 (1 standard drink = 0.6 oz pur e alcohol) PHQ-2 Answer Date Recorded Patient Health Questionnaire-2 Score 0 05/18/2023 Comments Yes Sex and Gender Information Value Date Recorded Sex Assigned at Not on file Legal Sex Female 6:20 PM EDT Gender Identity Not on file Sexual Orientation Not on file documented as of this encounter Last Filed Vital Signs Vital Sign Reading Time Taken Comments Blood Pressure 120/78 05/18/2023 8:44 AM EDT Pulse - - Temperature - - Respiratory Rate - - Oxygen Saturation - - Inhaled Oxygen Concentration - - Weight 134 kg (295 lb 6.7 oz) 05/18/2023 8:44 AM EDT Height - - Body Mass Index 49.16 02/20/2023 3:34 PM EDT documented in this encounter Miscellaneous Notes * Progress Notes - Chris Olguin MD - 05/18/2023 8:15 AM EDT Subjective Chief Complaint Patient presents with Routine Visit Doing okay. Asked for zofran since she is 8 wks now. Will send. Dating today. Arndt FHR 182. Size = dates. Reid Domingo is a 18 y.o. at 8w2d with a working estimated date of delivery of 12/26/2023, by Ultrasound who presents for a routine visit. She denies vaginal bleeding, leakageof fluid. Some Nausea. Her is complicated by: NA The following portions of the chart were reviewed this encounter and updated as appropriate: ALL Objective Physical Exam Weight: 134 kg (295 lb 6.7 oz), Pregravid BMI: 47.33 Expected Total Weight Gain: 5 kg (11 lb)-9 kg (19 lb) BP: 120/78 Heart Rate: +us Labs Urine dip: NA HGB (g/dL) Date/Time Value 05/03/2023 1553 14.1 HCT (%) Date/Time Value 05/03/2023 1553 43.2 ABO/Rh (no units) Date/Time Value 05/03/2023 1553 O Positive Hepatitis B Surf Antigen (no units) Date/Time Value 05/03/2023 1553 Negative No results found for: PAPPA , AFP , HCG , ESTRIOL , INHBA Imaging See report - Arndt Assessment/Plan Diagnoses and all orders for this visit: state, incidental - OB US Nuchal Translucency; Future Other orders - ondansetron (Zofran) 8 MG tablet; Take 1 tablet (8 mg) by mouth twice a day as needed for nausea Continue vitamin. Labs reviewed. Order placed for NT at 12+ weeks Follow up in 4 weeks for a routine visit. documented in this encounter Plan of Treatment Upcoming Encounters Date Type Department Care Team (Late st Contact Info) Description 08/01/2024 10:45 AM EST Routine Obstetrics & Gynecology [address] [place] [address] Chris Olguin MD [address] [place] [address] documented as of this encounter Results * OB US Nuchal Translucency (06/14/2023 3:17 PM EDT) Anatomical Region Laterality Modality Ultrasound 06/14/2023 2:55 PM EDT Impressions 06/18/2023 10:00 PM EDT The OB Ultrasound you requested has been resulted. Please navigate to the Imaging tab in [employer] for review. This message has been generated by the interface. Narrative Procedure Note Jeb Madrid MD - 06/18/2023 IMPRESSION: The OB Ultrasound you requested has been resulted. Please navigate to theImaging tab in [employer] for review. This message has been generated by theinterface. us Chris Olguin MD IMG OB US PROCEDURES Final Resu lt documented in this encounter Visit Diagnoses Diagnosis state, incidental- Primary state, incidental documented in this encounter Additional Health Concerns Assessment Noted Time A fall risk assessment has been complete d for the patient 05/18/2023 8:47 AM EDT documented as of this encounter Care Teams Carousel Operator Relationship Specialty Start Date End Date Waldemar Baltazar MD [address] [place] [address] PCP - General 01/06/23 Waldemar Baltazar MD [address] [place] [address] 01/06/23 documented as of this encounter
--- OUTSIDE RECORDS SUMMARY | 2024-07-18 08:34 | XMS_ITS | Encounter Summary ---
Author Organization [facility] Address [address] [place] [address] Care Team Providers Care Clerk Of Court Name Role Phone Waldemar Baltazar MD Primary Care Provider [phone] Waldemar Baltazar MD Unavailable [phone] Reason for Visit * Imaging (Routine) - Closed Specialty Diagnoses / Procedures Referred By Contac t Referred To Contact Diagnoses state, incidental Procedures OB US Transvaginal Miri Wu MD [address] [place] [address] Phone: tel: fax: Referral ID Status Reason Start Date Expiration Date Visits Re quested Visits Authorized [id number] Closed 05/18/2023 11/16/2024 1 1 Encounter Details Date Type Department Care Team (Latest Contact Info) Description 05/18/2023 7:58 AM EDT - 05/18/2023 11:59 PM EDT Hospital Encounter [facility] [address] [place] [address] state, incidental Discharge Disposition: Home or Self [...] by mouth 1 (one) time each day. ondansetron (Zofran) 8 MG tablet Take 1 tablet (8 mg) by mouth twice a day as needed for nausea 20 tablet 5 05/18/2023 01/13/2024 progesterone (Prometrium) 200 MG capsule Take 1 capsule (200 mg) by mouth every night. 90 capsule 04/14/2023 07/13/2023 promethazine (Phenergan) 25 MG tablet Take 1 tablet (25 mg) by mouth every 6 (six) hours if needed for nausea or vomiting for up to 23 days. 30 tablet 2 05/05/2023 05/28/2023 documented as of this encounter Plan of Treatment Upcoming Encounters Date Type Department Care Team (Late st Contact Info) Description 08/01/2024 10:45 AM EST Routine Obstetrics & Gynecology [address] [place] [address] Chris Olguin MD [address] [place] [address] documented as of this encounter Procedures Procedure Name Priority Date/Time Associated Diagnosis Comments OB US TRANSVAGINAL Routine 05/18/2023 8: 44 AM EDT state, incidental documented in this encounter Results * OB US Transvaginal (05/18/2023 8:44 AM EDT) Anatomical Region Laterality Modality Pelvis Ultrasound 05/18/2023 8:12 AM EDT Impressions 05/25/2023 12:03 PM EDT The OB Ultrasound you requested has been resulted. Please navigate to the Imaging tab in [employer] for review. This message has been generated by the interface. Narrative Procedure Note ElginJeb Sherman MD - 05/25/2023 IMPRESSION: The OB Ultrasound you requested has been resulted. Please navigate to theImaging tab in [employer] for review. This message has been generated by [facility]. us Miri Wu MD IMG OB US PROCEDURES Fin al Result documented in this encounter Visit Diagnoses Diagnosis state, incidental documented in this encounter Additional Health Concerns Assessment Noted Time A fall risk assessment has been complete d for the patient 05/18/2023 8:47 AM EDT documented as of this encounter Care Teams Clerk Of Court Relationship Specialty Start Date End Date Waldemar Baltazar MD [address] [place] [address] PCP - General 01/06/23 Waldemar Baltazar MD [address] [place] [address] 01/06/23 documented as of this encounter
--- OUTSIDE RECORDS SUMMARY | 2024-07-18 08:34 | XMS_ITS | Encounter Summary ---
Author Organization [facility] Address [address] [place] [address] Care Team Providers Care Escalator Attendant Name Role Phone Waldemar Baltazar MD Primary Care Provider [phone] Waldemar Baltazar MD Unavailable [phone] Encounter Details Date Type Department Care Team (Latest Contact Info) Description 01/06/2023 Travel Social History Tobacco Use Types Packs/Day Years Used Date Smoking Tobacco: Never Smokeless Tobacco: Never Alcohol Use Standard Drinks/Week Comments Never 0 (1 standard drink = 0.6 oz pur e alcohol) Comments Yes Sex and Gender Information Value Date Recorded Sex Assigned at Not on file Legal Sex Female 6:20 PM EDT Gender Identity Not on file Sexual Orientation Not on file documented as of this encounter Plan of Treatment Upcoming Encounters Date Type Department Care Team (Late st Contact Info) Description 08/01/2024 10:45 AM EST Routine Obstetrics & Gynecology [address] [place] [address] Chris Olguin MD [address] [place] [address] documented as of this encounter Visit Diagnoses Not on filedocumented in this encounter Care Teams Escalator Attendant Relationship Specialty Start Date End Date Waldemar Baltazar MD [facility] [place] [address] PCP - General 01/06/23 Waldemar Baltazar MD [address] [place] [address] 01/06/23 documented as of this encounter
--- OUTSIDE RECORDS SUMMARY | 2024-07-18 08:34 | XMS_ITS | Encounter Summary ---
Author Organization [facility] Address [address] [place] [address] Care Team Providers Care Hedge Fund Manager Name Role Phone Waldemar Baltazar MD Primary Care Provider [phone] Waldemar Baltazar MD Unavailable [phone] Encounter Details Date Type Department Care Team (Latest Contact Info) Description 05/03/2023 Travel Social History Tobacco Use Types Packs/Day Years Used Date Smoking Tobacco: Never Smokeless Tobacco: Never Alcohol Use Standard Drinks/Week Comments Never 0 (1 standard drink = 0.6 oz pur e alcohol) PHQ-2 Answer Date Recorded Patient Health Questionnaire-2 Score 0 05/03/2023 Comments Yes Sex and Gender Information Value Date Recorded Sex Assigned at Not on file Legal Sex Female 6:20 PM EDT Gender Identity Not on file Sexual Orientation Not on file documented as of this encounter Plan of Treatment Upcoming Encounters Date Type Department Care Team (Late st Contact Info) Description 08/01/2024 10:45 AM EST Routine Obstetrics & Gynecology [address] [place] [address] Chris Olguin MD [address] [place] [address] documented as of this encounter Visit Diagnoses Not on filedocumented in this encounter Additional Health Concerns Assessment Noted Time A fall risk assessment has been complete d for the patient 05/03/2023 3:32 PM EDT documented as of this encounter Care Teams Hedge Fund Manager Relationship Specialty Start Date End Date Waldemar Baltazar MD [address] [place] [address] PCP - General 01/06/23 Waldemar Baltazar MD [address] [place] [address] 01/06/23 documented as of this encounter
--- OUTSIDE RECORDS SUMMARY | 2024-07-18 08:34 | XMS_ITS | Encounter Summary ---
Author Organization [facility] Address [address] [place] [address] Care Team Providers Care Window Systems Administrator Name Role Phone Waldemar Baltazar MD Primary Care Provider Waldemar Baltazar MD Unavailable [phone] Encounter Details Date Type Department Care Team (Latest Contact Info) Description 04/13/2023 Travel Social History Tobacco Use Types Packs/Day [...] Routine Obstetrics & Gynecology [address] [place] [address] Chris Olguin MD [address] [place] [address] documented as of this encounter Visit Diagnoses Not on filedocumented in this encounter Additional Health Concerns Assessment Noted Time A fall risk assessment has been complete d for the patient 02/20/2023 3:35 PM EDT documented as of this encounter Care Teams Window Systems Administrator Relationship Specialty Start Date End Date Waldemar Baltazar MD [address] [place] [address] PCP - General 01/06/23 Waldemar Baltazar MD [address] [place] [address] 01/06/23 documented as of this encounter
--- OUTSIDE RECORDS SUMMARY | 2024-07-18 08:34 | XMS_ITS | Encounter Summary ---
Author Organization [facility] Address [address] [place] [address] Care Team Providers Care Operations Section Manager Name Role Phone Waldemar Baltazar MD Primary Care Provider [phone] Waldemar Baltazar MD Unavailable [phone] Reason for Visit * Reason Comments Recurrent Miscarriage F/u miscarriage. D iscuss recurrent miscarriages. Encounter Details Date Type Department Care Team (Late st Contact Info) Description 01/11/2023 3:45 PM EDT Office Visit Obstetrics & Gynecology [address] [place] [address] Miri Wu MD [address] [place] [address] Missed (Primary Dx) Social History Tobacco Use Types Packs/Day Years Used Date Smoking Tobacco: Never Smokeless Tobacco: Never Tobacco Cessation:Counseling Given: Not Answered Alcohol Use Standard Drinks/Week Comments Never 0 (1 standard drink = 0.6 oz pur e alcohol) PHQ-2 Answer Date Recorded Patient Health Questionnaire-2 Score 0 01/11/2023 Comments Yes Sex and Gender Information Value Date Recorded Sex Assigned at Not on file Legal Sex Female 6:20 PM EDT Gender Identity Not on file Sexual Orientation Not on file documented as of this encounter Last Filed Vital Signs Vital Sign Reading Time Taken Comments Blood Pressure 138/78 01/11/2023 3:57 PM EDT Pulse 80 01/11/2023 3:57 PM EDT Temperature 36.8 ??C (98.3 ??F) 01/11/2023 3:57 PM ED T Respiratory Rate 17 01/11/2023 3:57 PM EDT Oxygen Saturation 97% 01/11/2023 3:57 PM EDT Inhaled Oxygen Concentration - - Weight 133 kg (292 lb 3.2 oz) 01/11/2023 3:57 PM EDT Height 165.1 cm (5' 5 ) 01/11/2023 3:57 PM EDT Body Mass Index 48.62 01/11/2023 3:57 PM EDT documented in this encounter Miscellaneous Notes * Assessment & Plan Note - Miri Wu MD - 01/11/2023 4:21 PM EDT Associated Problem(s): Missed (Resolved 05/03/2023) - Labs: Blood type: O+ B-hcg 12/20/228 --> 01/05/23 2933 - Imaging: TVUS at [facility] on 01/05/23: single IUP without cardiac activity measuring [id number] for demise - Rh positive - we [...] PNV - will call with hormone level * Progress Notes - Miri Wu MD - 01/11/2023 3:45 PM EDT Gynecology Note Subjective Chief Complaint Patient presents with Recurrent Miscarriage F/u miscarriage. Discuss recurrent miscarriages. Reid Heredia is a 17 y.o. here for a miscarriage follow up. 17yo here today to follow up after recent diagnosis of miscarriage. Had an ultrasound last week at [facility] that showed 6w5d with no cardiac activity. Beta-hcG has plateaued ~ 2000 over the course of 1 week. Had heavy bleeding over the weekend - is starting to slow down. Would like to come in for recurrent SAB workup after SAB is resolved. Would like to TTC in about 6 months - would like to work on diet and exercise. Past Medical History She has no past medical history on file. Past Surgical History She has no past surgical history on file. Social History She reports that she has never smoked. She has never used smokeless tobacco. She reports that she does not drink alcohol and does not use drugs. Family History Her family history includes Breast cancer in her maternal grandmother. Current Medications She has a current medication list which includes the following prescription(s): mv-min-fe fum-fa-dha. Allergies No Known Allergies Review of Systems Constitutional: Negative for fatigue, fever and unexpected weight change. HENT: Negative. Eyes: Negative. Respiratory: Negative for shortness of breath and wheezing. Cardiovascular: Negative for chest pain, palpitations and leg swelling. Gastrointestinal: Negative for abdominal pain, constipation, diarrhea, nausea and vomiting. Endocrine: Negative. Negative for cold intolerance and heat intolerance. Genitourinary: Positive for vaginal bleeding. Negative for difficulty urinating, dyspareunia, dysuria, menstrual problem and pelvic pain. Musculoskeletal: Negative for arthralgias and back pain. Neurological: Negative for syncope and numbness. Hematological: Negative. Psychiatric/Behavioral: Negative for self-injury and suicidal ideas. Objective Visit Vitals BP 138/78 Pulse 80 Temp 36.8 ??C (98.3 ??F) Resp 17 Body mass index is 48.62 kg/m??. Physical Exam Constitutional: Appearance: Normal appearance. HENT: Head: Normocephalic and atraumatic. Cardiovascular: Rate and Rhythm: Normal rate and regular rhythm. Pulmonary: Effort: Pulmonary effort is normal. Abdominal: General: There is no distension. Palpations: Abdomen is soft. Tenderness: There is no abdominal tenderness. Neurological: General: No focal deficit present. Mental Status: She is alert and oriented to person, place, and time. Psychiatric: Mood and Affect: Mood normal. Behavior: Behavior normal. Vitals reviewed. Data Review: Labs: Blood type: O+ B-hcg 12/20/22 3568 --> 01/05/23 2933 Imaging: TVUS at [facility] on 01/05/23: single IUP without cardiac activity measuring 6w5d suspicious for demise Assessment/Plan Problem List Items Addressed This Visit Other Missed - Primary - Labs: Blood type: O+ B-hcg 12/20/228 --> 01/05/23 2933 - Imaging: TVUS at [facility] on 01/05/23: single IUP without cardiac activity measuring [id number] for demise - Rh positive - we [...] PNV - will call with hormone level Relevant Orders hCG, Total Beta, Quantitative, Plasma Type and Screen Time Spent: I personally spent a total of 22 minutes on this encounter. This time includes face to face with patient, counseling and discussion and/or coordination of care. documented in this encounter Plan of Treatment Upcoming Encounters Date Type Department Care Team (Late st Contact Info) Description 08/01/2024 10:45 AM EST Routine Obstetrics & Gynecology [address] [place] [address] Chris Olguin MD [address] [place] [address] documented as of this encounter Procedures Procedure Name Priority Date/Time Associated Diagnosis Comments TYPE AND SCREEN Routine 01/11/2023 4:11 PM EDT Missed HCG, QUANTITATIVE Routine 01/11/2023 4:1 1 PM EDT Missed documented in this encounter Results * Type and Screen (01/11/2023 4:11 PM EDT) ABO/Rh O Positive 01/10/2023 8:00 PM EDT BLOOD BANK Antibody Screen Negative 01/10/2023 8:00 PM EDT BLOOD BANK Specimen Expiration 01/14/2023 23:59 01/10/2023 8:00 PM EDT BLOOD BANK Blood Venous blood specimen / Unknown Venipuncture / Unknown 01/11/2023 4:11 PM EDT 01/11/2023 6:49 PM EDT Miri Wu MD LAB BLOOD BANK TEST ORDE PHANI Final Result Performing Organization Address City/State/[facility] Co de Phone Number BLOOD BANK [address] [place] [address], * (ABNORMAL) hCG, Total Beta, Quantitative, Plasma (01/11/2023 4:11 PM EDT) hCG, Total Beta 412(H) <5 mIU/mL 01/11/2023 7:24 PM EDT [facility] Blood Venous blood specimen / Unknown Venipuncture / Unknown 01/11/2023 4:11 PM EDT 01/11/2023 6:39 PM EDT Narrative HEALTHCARE LAB - 01/11/2023 7:24 PM EDT Patients: ? Normal Range Premenopausal Female < [...] MD LAB BLOOD ORDERABLES Fin al Result [facility] [address] [place] [address] documented in this encounter Visit Diagnoses Diagnosis Missed - Primary documented in this encounter Additional Health Concerns Assessment Noted Time A fall risk assessment has been complete d for the patient 01/11/2023 3:59 PM EDT documented as of this encounter Care Teams Operations Section Manager Relationship Specialty Start Date End Date Waldemar Baltazar MD [address] [place] [address] PCP - General 01/06/23 Waldemar Baltazar MD [address] [place] [address] 01/06/23 documented as of this encounter
--- OUTSIDE RECORDS SUMMARY | 2024-07-18 08:34 | XMS_ITS | Encounter Summary ---
Author Organization [facility] Address [address] [place] [address] Care Team Providers Care Network Contractor Name Role Phone Waldemar Baltazar MD Primary Care Provider Waldemar Baltazar MD Unavailable [phone] Encounter Details Date Type Department Care Team (Latest Contact Info) Description 05/18/2023 Travel Social History Tobacco Use Types Packs/Day [...] AM EST Routine Obstetrics & Gynecology [address] [place] [address] Chris Olguin MD [address] [place] [address] documented as of this encounter Visit Diagnoses Not on filedocumented in this encounter Additional Health Concerns Assessment Noted Time A fall risk assessment has been complete d for the patient 05/18/2023 8:47 AM EDT documented as of this encounter Care Teams Network Contractor Relationship Specialty Start Date End Date Waldemar Baltazar MD [address] [place] [address] PCP - General 01/06/23 Waldemar Baltazar MD [address] [place] [address] 01/06/23 documented as of this encounter
--- OUTSIDE RECORDS SUMMARY | 2024-07-18 08:34 | XMS_ITS | Encounter Summary ---
Author Organization [facility] Address [address] [place] [address] Care Team Providers Care Obstetric Anaesthetist Name Role Phone Waldemar Baltazar MD Primary Care Provider [phone] Waldemar Baltazar MD Unavailable [phone] Encounter Details Date Type Department Care Team (Latest Contact Info) Description 05/10/2023 11:30 AM EDT Ancillary Procedure Obstetrics & Gynecology [address] [place] [address] state, incidental Social History Tobacco Use Types Packs/Day Years Used Date Smoking Tobacco: Never Smokeless Tobacco: Never Alcohol Use Standard Drinks/Week Comments Never 0 (1 standard drink = 0.6 oz pur e alcohol) PHQ-2 Answer Date Recorded Patient Health Questionnaire-2 Score 0 05/10/2023 Comments Yes Sex and Gender Information Value Date Recorded Sex Assigned at Not on file Legal Sex Female 6:20 PM EDT Gender Identity Not on file Sexual Orientation Not on file documented as of this encounter Plan of Treatment Upcoming Encounters Date Type Department Care Team (Late st Contact Info) Description 08/01/2024 10:45 AM EST Routine Obstetrics & Gynecology [address] [place] [address] Chris Olguin MD [address] [place] [address] documented as of this encounter Procedures Procedure Name Priority Date/Time Associated Diagnosis Comments US PELVIS TRANSVAGINAL Routine 05/10/2023 11:25 AM EDT state, incidental documented in this encounter Results * US Pelvis Transvaginal (05/10/2023 11:25 AM EDT) Anatomical Region Laterality Modality Pelvis Ultrasound 05/10/2023 11:3 3 AM EDT Impressions 05/10/2023 5:28 PM EDT The OB Ultrasound you requested has been resulted. Please navigate to the Imaging tab in [employer] for review. This message has been generated by the interface. Narrative Procedure Note Miri Wu MD - 05/10/2023 IMPRESSION: The OB Ultrasound you requested has been resulted. Please navigate to theImaging tab in [employer] for review. This message has been generated by theinterface. us Miri Wu MD IMG US PROCEDURES Final Result documented in this encounter Visit Diagnoses Diagnosis state, incidental documented in this encounter Additional Health Concerns Assessment Noted Time A fall risk assessment has been complete d for the patient 05/10/2023 11:56 AM EDT documented as of this encounter Care Teams Obstetric Anaesthetist Relationship Specialty Start Date End Date Waldemar Baltazar MD [address] [place] [address] PCP - General 01/06/23 Waldemar Baltazar MD [address] [place] [address] 01/06/23 documented as of this encounter
--- OUTSIDE RECORDS SUMMARY | 2024-07-18 08:34 | XMS_ITS | Encounter Summary ---
Author Organization [facility] Address [address] [place] [address] Care Team Providers Care Sports Management Internship Name Role Phone Waldemar Baltazar MD Primary Care Provider [phone] Waldemar Baltazar MD Unavailable [phone] Reason for Referral * Imaging (Routine) - Closed Specialty Diagnoses / Procedures Referred By Contac t Referred To Contact Diagnoses state, incidental Procedures OB US Nuchal Translucency Chris Olguin MD [address] [place] [address] Phone: tel: fax: Referral ID Status Reason Start Date Expiration Date Visits Re quested Visits Authorized [id number] Closed 05/18/2023 11/16/2024 1 1 Reason for Visit * Imaging (Routine) - Closed Specialty Diagnoses / Procedures Referred By Contedwin dumont Referred To Contact Diagnoses state, incidental Procedures OB US Nuchal Translucency Chris Olguin MD [address] [place] [address] Phone: tel: fax: Referral ID Status Reason Start Date Expiration Date Visits Re quested Visits Authorized [id number] Closed 05/18/2023 11/16/2024 1 1 Encounter Details Date Type Department Care Team (Latest Contact Info) Description 06/14/2023 2:57 PM EDT - 06/14/2023 11:59 PM EDT Hospital Encounter [facility] ULTRASOUND [address] [place] [address] state, incidental Discharge Disposition: Home or Self [...] mouth every night. 90 capsule 04/14/2023 07/13/2023 documented as of this encounter Plan of Treatment Upcoming Encounters Date Type Department Care Team (Late st Contact Info) Description 08/01/2024 10:45 AM EST Routine Obstetrics & Gynecology [address] [place] [address] Chris Olguin MD [address] [place] [address] documented as of this encounter Procedures Procedure Name Priority Date/Time Associated Diagnosis Comments OB US NUCHAL TRANSLUCENCY Routine 06/14/2023 3:17 PM EDT state, incidental documented in this encounter Results * OB US Nuchal Translucency (06/14/2023 3:17 PM EDT) Anatomical Region Laterality Modality Ultrasound 06/14/2023 2:55 PM EDT Impressions 06/18/2023 10:00 PM EDT The OB Ultrasound you requested has been resulted. Please navigate to the Imaging tab in [employer] for review. This message has been generated by the interface. Narrative Procedure Note Jeb Madrid MD - 06/18/2023 IMPRESSION: The OB Ultrasound you requested has been resulted. Please navigate to theImaging tab in [employer] for review. This message has been generated by theinterface. us Chris Olguin MD IMG OB US PROCEDURES Final Resu lt documented in this encounter Visit Diagnoses Diagnosis state, incidental documented in this encounter Additional Health Concerns Assessment Noted Time A fall risk assessment has been complete d for the patient 06/14/2023 3:32 PM EDT documented as of this encounter Care Teams Sports Management Internship Relationship Specialty Start Date End Date Waldemar Baltazar MD [address] [place] [address] PCP - General 01/06/23 Waldemar Baltazar MD [address] [place] [address] 01/06/23 documented as of this encounter
--- OUTSIDE RECORDS SUMMARY | 2024-07-18 08:34 | XMS_ITS | Encounter Summary ---
Author Organization [facility] Address [address] [place] [address] Care Team Providers Care Supervisor Byproducts Name Role Phone Waldemar Baltazar MD Primary Care Provider Waldemar Baltazar MD Unavailable [phone] Encounter Details Date Type Department Care Team (Latest Contact Info) Description 05/10/2023 Travel Social History Tobacco Use Types Packs/Day [...] AM EST Routine Obstetrics & Gynecology [address] [place] [address] Chris Olguin MD [address] [place] [address] documented as of this encounter Visit Diagnoses Not on filedocumented in this encounter Additional Health Concerns Assessment Noted Time A fall risk assessment has been complete d for the patient 05/10/2023 11:56 AM EDT documented as of this encounter Care Teams Supervisor Byproducts Relationship Specialty Start Date End Date Waldemar Baltazar MD [address] [place] [address] PCP - General 01/06/23 Waldemar Baltazar MD [address] [place] [address] 01/06/23 documented as of this encounter
--- OUTSIDE RECORDS SUMMARY | 2024-07-18 08:34 | XMS_ITS | Encounter Summary ---
Author Organization [facility] Address [address] [place] [address] Care Team Providers Care Blower Mechanic Name Role Phone Waldemar Baltazar MD Primary Care Provider Waldemar Baltazar MD Unavailable [phone] Encounter Details Date Type Department Care Team (Latest Contact Info) Description 04/13/2023 10:00 AM EDT Routine Obstetrics & Gynecology [facility] [place] [address] test positive Social History Tobacco Use Types Packs/Day Years [...] encounter Miscellaneous Notes * Progress Notes - Rob Galaviz - 04/13/2023 10:00 AM EDT Labs only. Patient is interested in doing progesterone for early support with her hx. Cosigned by Miri Wu MD at 06/21/2023 2:22 PM EDT Associated attestation - Miri Wu MD - 06/21/2023 2:22 PM EDT Signature Only documented in this encounter Plan of Treatment Upcoming Encounters Date Type Department Care Team (Late st Contact Info) Description 08/01/2024 10:45 AM EST Routine Obstetrics & Gynecology [address] [place] [address] Chris Olguin MD [address] [place] [address] documented as of this encounter Procedures Procedure Name Priority Date/Time Associated Diagnosis Comments PROGESTERONE III Routine 04/13/2023 10:2 7 AM EDT test positive HCG, QUANTITATIVE Routine 04/13/2023 10: 18 AM EDT test positive documented in this encounter Results * Progesterone (04/13/2023 10:27 AM EDT) Progesterone III 7.66 ng/mL 04/13/20 2:14 PM EDT [facility] Blood Venous blood specimen / Unknown Venipuncture / Unknown 04/13/2023 10:27 AM EDT 04/13/2023 12:45 PM EDT Narrative [facility] - 04/13/2023 2:14 PM EDT Menstrual Cycle Phase Reference Intervals: Females, 18 Y and up (ng/mL) Follicular ?<= 0.33 Ovulation ? <= 2.35 Luteal ? 0.5-21 Post-Menopausal <0.2 reference Intervals (ng/mL): 1st Trimester ?11 - 45 2nd Trimester ?25 - 84 3rd Trimester ?58 - 214 us Miri Wu MD LAB BLOOD ORDERABLES Fin al Result Performing Organization Address City/[facility] Co de Phone Number [facility]ALTHCARE [facility] [address] [place] [address] * (ABNORMAL) hCG, Total Beta, Quantitative, Plasma (04/13/2023 10:18 AM EDT) hCG, Total Beta 20.2(H) <5 mIU/mL 04/13/2023 1:33 PM EDT [facility] Blood Venous blood specimen / Unknown Venipuncture / Unknown 04/13/2023 10:18 AM EDT 04/13/2023 12:45 PM EDT Narrative [facility] - 04/13/2023 1:33 PM EDT Patients: ? Normal Range Premenopausal [...] methods or kits cannot be used interchangeably. us Miri Wu MD LAB BLOOD ORDERABLES Fin al Result Performing Organization Address [facility] de Phone Number [facility]ALTHCARE LAB [address] [place] [address] documented in this encounter Visit Diagnoses Diagnosis test positive examination or test, positive result documented in this encounter Additional Health Concerns Assessment Noted Time A fall risk assessment has been complete d for the patient 02/20/2023 3:35 PM EDT documented as of this encounter Care Teams Blower Mechanic Relationship Specialty Start Date End Date Waldemar Baltazar MD [facility] [place] [address] PCP - General 01/06/23 Waldemar Baltazar MD [address] [place] [address] 01/06/23 documented as of this encounter
--- OUTSIDE RECORDS SUMMARY | 2024-07-18 08:34 | XMS_ITS | Encounter Summary ---
Author Organization [facility] Address [address] [place] [address] Care Team Providers Care Garment Steamer Name Role Phone Waldemar Baltazar MD Primary Care Provider Waldemar Baltazar MD Unavailable Reason for Visit * Reason Onset Date Comments HCN - Patient Message 04/20/2023 Call back Encounter Details Date Type Department Care Team (Late st Contact Info) Description 04/20/2023 Telephone Obstetrics & Gynecology [address] [place] [address] Miri Wu MD [address] [place] [address] HCN - Patient Message (Call back) Social History Tobacco Use Types Packs/Day Years [...] encounter Miscellaneous Notes * Telephone Encounter - Rob Galaviz - 04/20/2023 10:01 AM EDT Discuss with patients * Telephone Encounter - OsorioAlexa - 04/20/2023 8:47 AM EDT Clinical Concern/Question Reason for Call: Calling to speak with Rob after yesterday's visit. Best contact number: [phone] (mobile) Optimal time of day to reach caller: ANYTIME Additional comments/information from caller: Please call to discuss. Note: Please do not reply to this message. Follow-up communication and further actions as a result of this message need to be communicated with the patient directly, if the patient is not active onMyChart. If the patient is active on MyChart, they will receive notification of the communication/outcome via [employer]. documented in this encounter Plan of Treatment Upcoming Encounters Date Type Department Care Team (Late st Contact Info) Description 08/01/2024 10:45 AM EST Routine [facility] [address] [place] [address] Chris Olguin MD [address] [place] [address] documented as of this encounter Visit Diagnoses Not on filedocumented in this encounter Additional Health Concerns Assessment Noted Time A fall risk assessment has been complete d for the patient 02/20/2023 3:35 PM EDT documented as of this encounter Care Teams Garment Steamer Relationship Specialty Start Date End Date Waldemar Baltazar MD [address] [place] [address] PCP - General 01/06/23 Waldemar Baltazar MD [address] [place] [address] 01/06/23 documented as of this encounter
--- OUTSIDE RECORDS SUMMARY | 2024-07-18 08:34 | XMS_ITS | Encounter Summary ---
Author Organization [facility] Address [address] [place] [address] Care Team Providers Care Supervisor Electron Tube Processing Name Role Phone Waldemar Baltazar MD Primary Care Provider [phone] Waldemar Baltazar MD Unavailable [phone] Encounter Details Date Type Department Care Team (Latest Contact Info) Description 02/20/2023 3:05 PM EDT Ancillary Procedure Obstetrics & Gynecology [address] [place] [address] Recurrent loss Social History Tobacco Use Types Packs/Day Years [...] AM EST Routine Obstetrics & Gynecology [address] [place] [address] Chris Olguin MD [address] [place] [address] documented as of this encounter Procedures Procedure Name Priority Date/Time Associated Diagnosis Comments US PELVIS TRANSVAGINAL Routine 02/20/2023 3:01 PM EDT Recurrent loss documented in this encounter Results * US Pelvis Transvaginal (02/20/2023 3:01 PM EDT) Anatomical Region Laterality Modality Pelvis Ultrasound 02/20/2023 3:51 PM EDT Impressions 02/23/2023 2:27 PM EDT The OB Ultrasound you requested has been resulted. Please navigate to the Imaging tab in [employer] for review. This message has been generated by the interface. Narrative Procedure Note Miri Wu MD - 02/23/2023 IMPRESSION: The OB Ultrasound you requested has been resulted. Please navigate to theImaging tab in [employer] for review. This message has been generated by theinterface. us Miri Wu MD IMG US PROCEDURES Final Result documented in this encounter Visit Diagnoses Diagnosis Recurrent loss documented in this encounter Additional Health Concerns Assessment Noted Time A fall risk assessment has been complete d for the patient 02/20/2023 3:35 PM EDT documented as of this encounter Care Teams Supervisor Electron Tube Processing Relationship Specialty Start Date End Date Waldemar Baltazar MD [address] [place] [address] PCP - General 01/06/23 Waldemar Baltazar MD [address] [place] [address] 01/06/23 documented as of this encounter
--- OUTSIDE RECORDS SUMMARY | 2024-07-18 08:34 | XMS_ITS | Encounter Summary ---
Author Organization [facility] Address [address] [place] [address] Care Team Providers Care Transportation Consultant Name Role Phone Waldemar Baltazar MD Primary Care Provider Waldemar Baltazar MD Unavailable [phone] Encounter Details Date Type Department Care Team (Latest Contact Info) Description 01/11/2023 Travel Social History Tobacco Use Types Packs/Day [...] AM EST Routine Obstetrics & Gynecology [address] [place] [address] Chris Olguin MD [address] [place] [address] documented as of this encounter Visit Diagnoses Not on filedocumented in this encounter Additional Health Concerns Assessment Noted Time A fall risk assessment has been complete d for the patient 01/11/2023 3:59 PM EDT documented as of this encounter Care Teams Transportation Consultant Relationship Specialty Start Date End Date Waldemar Baltazar MD [address] [place] [address] PCP - General 01/06/23 Waldemar Baltazar MD [address] [place] [address] 01/06/23 documented as of this encounter
--- OUTSIDE RECORDS SUMMARY | 2024-07-18 08:34 | XMS_ITS | Encounter Summary ---
Author Organization [facility] Address [address] [place] [address] Care Team Providers Care Lance Crewmember Name Role Phone Waldemar Baltazar MD Primary Care Provider [phone] Waldemar Baltazar MD Unavailable [phone] Reason for Visit * Reason Comments New Patient Possible miscarriage Encounter Details Date Type Department Care Team (Late st Contact Info) Description 01/06/2023 3:00 PM EDT Office Visit Obstetrics & Gynecology [address] [place] [address] Miri Wu MD [address] [place] [address] test positive (Primary Dx); Missed Social History Tobacco Use Types Packs/Day Years [...] Sign Reading Time Taken Comments Blood Pressure 120/75 01/06/2023 3:38 PM EDT Pulse 78 01/06/2023 3:38 PM EDT Temperature 36.7 ??C (98.1 ??F) 01/06/2023 3:38 PM ED T Respiratory Rate 16 01/06/2023 3:38 PM EDT Oxygen Saturation 97% 01/06/2023 3:38 PM EDT Inhaled Oxygen Concentration - - Weight 133 kg (293 lb 6.9 oz) 01/06/2023 3:38 PM EDT Height - - Body Mass Index - - documented in this encounter Miscellaneous Notes * Assessment & Plan Note - Miri Wu MD - 01/06/2023 4:41 PM EDT Associated Problem(s): Missed (Resolved 05/03/2023) - Labs: Blood type: O+ B-hcg 12/20/222237 --> 01/05/23 2933 - Imaging: TVUS at [facility] on 01/05/23: single IUP without cardiac activity measuring [id number] for demise - Discussed that with B-hcG [...] that we need to perform weekly B-hCG toensure resolves - we discussed performing recurrent miscarriage labs and ultrasound after this is resolved - she will call us next week for either nurse visit with lab work or for cytotec * Progress Notes - Miri Wu MD - 01/06/2023 3:00 PM EDT Gynecology Note Subjective Chief Complaint Patient presents with New Patient Possible miscarriage Reid Heredia is a 17 y.o. here for a new gynecologic visit. 17yo here today to establish care and to discuss recent diagnosis of miscarriage. Had an ultrasound yesterday at [facility] that showed 6w5d with no cardiac activity. Beta-hcG has plateaued ~ 2000 over the course of 1 week. She has started having spotting. No cramping. Past Medical History She has no past [...] and suicidal ideas. Objective Visit Vitals BP 120/75 Pulse 78 Temp 36.7 ??C (98.1 ??F) (Oral) Resp 16 There is no height or weight on file to calculate BMI. Physical Exam Constitutional: Appearance: Normal appearance. HENT: [...] Review: Labs: Blood type: O+ B-hcg 12/20/22 4908 --> 01/05/23 2933 Imaging: TVUS at [facility] on 5/11/23: single IUP without cardiac activity measuring 6w5d suspicious for demise Assessment/Plan Problem List Items Addressed This Visit Other Missed - Labs: Blood type: O+ B-hcg 12/20/22 2238 --> 01/05/23 2933 - Imaging: TVUS at [facility] on 01/05/23: single IUP without cardiac activity measuring [id number] for demise - Discussed that with B-hcG [...] that we need to perform weekly B-hCG toensure resolves - we discussed performing recurrent miscarriage labs and ultrasound after this is resolved - she will call us next week for either nurse visit with lab work or for cytotec Other Visit Diagnoses test positive - Primary Relevant Orders POCT Urine (Completed) Time Spent: I personally spent a total of 32 minutes on this encounter. This time includes face to face with patient, counseling and discussion and/or coordination of care. documented in this encounter Plan of Treatment Upcoming Encounters Date Type Department Care Team (Late st Contact Info) Description 08/01/2024 10:45 AM EST Routine Obstetrics & Gynecology [address] [place] [address] Chris Olguin MD [address] [place] [address] documented as of this encounter Procedures Procedure Name Priority Date/Time Associated Diagnosis Comments POCT , URINE Routine 01/06/2023 3:41 PM EDT test positive documented in this encounter Results * (ABNORMAL) POCT Urine (01/06/2023 3:41 PM EDT) Urine - Point of Care Positive(A ) Negative - women after 7 weeks gestation and dilute urine (specific gravity <1.010) may have false negative results. Plasma HCG testing is recommended. Test performed at Point of Care. INTERNAL QC OK, PREG URINE Passed KIT LOT NUMBER, PREG URINE [id number] KIT EXPIRATION DATE, PREG URINE 06/27/2023 Urine Urine specimen obtained by clean catch procedure / Unknown 01/06/2023 3:41 PM EDT Miri Wu MD POINT OF CARE TEST ENTER /EDIT ORDERABLES Final Result documented in this encounter Visit Diagnoses Diagnosis test positive- Primary examination or test, positive result Missed documented in this encounter Care Teams Lance Crewmember Relationship Specialty Start Date End Date Waldemar Baltazar MD [address] [place] [address] PCP - General 01/06/23 Waldemar Baltazar MD [address] [place] [address] 01/06/23 documented as of this encounter
--- OUTSIDE RECORDS SUMMARY | 2024-07-18 08:34 | XMS_ITS | Encounter Summary ---
Author Organization [facility] Address [address] [place] [address] Care Team Providers Care Sales Support Specialist Name Role Phone Waldemar Baltazar MD Primary Care Provider Waldemar Baltazar MD Unavailable [phone] Encounter Details Date Type Department Care Team (Latest Contact Info) Description 04/19/2023 1:45 PM EDT Clinical Support Obstetrics & Gynecology [facility] [place] [address] test positive (Primary Dx) Social History Tobacco Use [...] as of this encounter Miscellaneous Notes * Clinician Note - Miri Monk RN - 04/19/2023 1:45 PM EDT Patient presents for HCG blood draw with progesterone, notified of previous results and wondered ifshe needed to have any additional blood drawn this week. Rob in [facility] instructed that patient did not need to have additional blood work as long as this blood work showed increase in HCG. documented in this encounter Plan of Treatment Upcoming Encounters Date Type Department Care Team (Late st Contact Info) Description 08/01/2024 10:45 AM EST Routine Obstetrics & Gynecology [address] [place] [address] Chris Olguin MD [address] [place] [address] documented as of this encounter Procedures Procedure Name Priority Date/Time Associated Diagnosis Comments PROGESTERONE III Routine 04/19/2023 1:38 PM EDT test positive HCG, QUANTITATIVE Routine 04/19/2023 1:3 0 PM EDT test positive documented in this encounter Results * Progesterone (04/19/2023 1:38 PM EDT) Progesterone III 5.44 ng/mL 04/19/20 6:45 PM EDT [facility] Blood Venous blood specimen / Unknown Venipuncture / Unknown 04/19/2023 1:38 PM EDT 04/19/2023 6:02 PM EDT Narrative [facility] - 04/19/2023 6:45 PM EDT Menstrual Cycle Phase Reference Intervals: Females, 18 Y and up (ng/mL) Follicular ?<= 0.33 Ovulation ? <= 2.35 Luteal ? 0.5-21 Post-Menopausal <0.2 reference Intervals (ng/mL): 1st Trimester ?11 - 45 2nd Trimester ?25 - 84 3rd Trimester ?58 - 214 us Miri Wu MD LAB BLOOD ORDERABLES Fin al Result [facility] [address] [place] [address] * (ABNORMAL) hCG, Total Beta, Quantitative, Plasma (04/19/2023 1:30 PM EDT) hCG, Total Beta 275(H) <5 mIU/mL 04/19/2023 6:50 PM EDT [facility] Blood Venous blood specimen / Unknown Venipuncture / Unknown 04/19/2023 1:30 PM EDT 04/19/2023 6:01 PM EDT Narrative [facility] - 04/19/2023 6:50 PM EDT Patients: ? Normal Range Premenopausal [...] MD LAB BLOOD ORDERABLES Fin al Result [facility] [address] [place] [address] documented in this encounter Visit Diagnoses Diagnosis test positive- Primary examination or test, positive result documented in this encounter Additional Health Concerns Assessment Noted Time A fall risk assessment has been complete d for the patient 02/20/2023 3:35 PM EDT documented as of this encounter Care Teams Sales Support Specialist Relationship Specialty Start Date End Date Waldemar Baltazar MD Formerly named [facility] [place] [address] PCP - General 01/06/23 Waldemar Baltazar MD Formerly named [facility] [place] [address] 01/06/23 documented as of this encounter
--- OUTSIDE RECORDS SUMMARY | 2024-07-18 08:34 | XMS_ITS | Encounter Summary ---
Author Organization [facility] Address [address] [place] [address] Care Team Providers Care Senior Cobol Developer Name Role Phone Waldemar Baltazar MD Primary Care Provider Waldemar Baltazar MD Unavailable [phone] Encounter Details Date Type Department Care Team (Late st Contact Info) Description 04/12/2023 Orders Only Obstetrics & Gynecology [address] [place] [address] Rob Galaviz [place] [phone] test positive (Primary Dx) Social History Tobacco [...] AM EST Routine Obstetrics & Gynecology [address] [place] [address] Chris Olguin MD [address] [place] [address] documented as of this encounter Results * (ABNORMAL) hCG, Total Beta, Quantitative, Plasma (04/13/2023 10:18 AM EDT) hCG, Total Beta 20.2(H) <5 mIU/mL 04/13/2023 1:33 PM EDT [facility] Blood Venous [...] MD LAB BLOOD ORDERABLES Fin al Result [facility] [address] [place] [address] documented in this encounter Visit Diagnoses Diagnosis test positive- Primary examination or test, positive result documented in this encounter Additional Health Concerns Assessment Noted Time A fall risk assessment has been complete d for the patient 02/20/2023 3:35 PM EDT documented as of this encounter Care Teams Senior Cobol Developer Relationship Specialty Start Date End Date Waldemar Baltazar MD [address] [place] [address] PCP - General 01/06/23 Waldemar Baltazar MD [address] [place] [address] 01/06/23 documented as of this encounter
--- OUTSIDE RECORDS SUMMARY | 2024-07-18 08:34 | XMS_ITS | Encounter Summary ---
Author Organization [facility] Address [address] [place] [address] Care Team Providers Care Watch Electrician Name Role Phone Waldemar Baltazar MD Primary Care Provider Waldemar Baltazar MD Unavailable [phone] Reason for Visit * Reason Comments Initial Visit Encounter Details Date Type Department Care Team (Late st Contact Info) Description 05/03/2023 3:15 PM EDT Initial Obstetrics & Gynecology [address] [place] [address] Miri Wu MD [address] [place] [address] Social History Tobacco Use Types [...] Sign Reading Time Taken Comments Blood Pressure 119/75 05/03/2023 3:29 PM EDT Pulse - - Temperature - - Respiratory Rate - - Oxygen Saturation - - Inhaled Oxygen Concentration - - Weight 129 kg (284 lb 6.3 oz) 05/03/2023 3:29 PM EDT Height - - Body Mass Index 47.33 02/20/2023 3:34 PM EDT documented in this encounter Miscellaneous Notes * Assessment & Plan Note - Miri Wu MD - 05/03/2023 3:55 PM EDT Associated Problem(s): state, incidental (Resolved 12/28/2023) - labs today - US shows viable SIUP with CRL not c/w LMP, changes MYLES to 12/26/23 - continue PNV - new OB backpack given - RTC 1 week for viability US * Progress Notes - Miri Wu MD - 05/03/2023 3:15 PM EDT Initial Note Subjective 18yo here today for initial visit. Doing well - some nausea. No vaginal bleeding. Is anxious about US. OB History Para Term AB Living 3 0 0 0 1 SAB IAB Ectopic Multiple Live Births 1 0 0 # Outcome Date GA Lbr Urbano/2nd Weight Sex Delivery Anes PTL Lv 3 Current 2 SAB 06/2022 1 Past Medical History She has a past medical history of Personal history of other diseases of the respiratory system and Personal history of pneumonia (recurrent). Past Surgical History She has a past surgical history that includes Other surgical history (N/A). Social History She reports that she has never smoked. She has never used smokeless tobacco. She reports that she does not drink alcohol and does not use drugs. Family History Her family history includes Asthma in an other family member; Breast cancer in her maternal grandmother; Conversions - Other in an other family member. Allergies She has No Known Allergies. Current Medications She has a current medication list which includes the following prescription(s): mv-min-fe fum-fa-dha and progesterone. Review of Systems A 14 point ROS was performed and is negative except noted above in HPI Objective Physical Exam Visit Vitals BP 119/75 Pregravid weight: 129 kg (284 lb 6.3 oz) Pregravid BMI: 47.33 Body mass index is 47.33 kg/m??. See encounter summary and flowsheet for exam details. Gen: NAD, well-appearing CV: RRR, no edema Resp: non-labored respirations Abd: soft, nontender : normal external genitalia TVUS: viable SIUP with CRL not c/w LMP, changes MYLES to 12/26/23 Assessment/Plan Problem List Items Addressed This Visit Other state, incidental - Primary - labs today - US shows viable SIUP with CRL not c/w LMP, changes MYLES to 12/26/23 - continue PNV - new OB backpack given - RTC 1 week for viability US Relevant Orders US Pelvis Transvaginal CBC W/O Differential Type and Screen Rubella IgG Urine culture Drug Abuse Screen, Urine Chlamydia trachomatis DNA by PCR HIV 1 & 2 Antibody/Antigen Screen Hepatitis B surface Ag Hepatitis C Antibody Neisseria gonorrhea DNA by PCR T. Pallidum (Syphilis) antibodies with Reflex TSH Time Spent: I personally spent a total of 32 minutes on this encounter. This time includes face to face with patient, counseling and discussion and/or coordination of care. documented in this encounter Plan of Treatment Upcoming Encounters Date Type Department Care Team (Late st Contact Info) Description 08/01/2024 10:45 AM EST Routine Obstetrics & Gynecology [address] [place] [address] Chris Olguin MD [address] [place] [address] documented as of this encounter Procedures Procedure Name Priority Date/Time Associated Diagnosis Comments TREPONEMA PALLIDUM (SYPHILIS) ANTIBODIES WITH REFLEX TO RPR AND RPR TITER (THOSE WITH NO KNOWN SYPHILIS) Routine 05/03/2023 3:53 PM EDT state, incidental CHLAMYDIA TRACHOMATIS DNA BY PCR Routine 05/03/2023 3:53 PM EDT state, incidental HIV 1/2 ANTIBODY/ANTIGEN SCREEN WITH REFLEX TO HIV I/II DIFFERENTIATION Routine 05/03/2023 3:53 PM EDT state, incidental HEPATITIS C ANTIBODY W/REFLEX TO HCV QUANT PCR Routine 05/03/2023 3:53 PM EDT state, incidental DRUG ABUSE SCREEN, URINE Routine 05/03/2023 3:53 PM EDT state, incidental NEISSERIA GONORRHEA DNA BY PCR Routine 05/03/2023 3:53 PM EDT state, incidental RUBELLA ANTIBODY IGG Routine 05/03/2023 3:53 PM EDT state, incidental HEPATITIS B SURFACE ANTIGEN Routine 05/03/2023 3:53 PM EDT state, incidental CBC W/O DIFFERENTIAL Routine 05/03/2023 3:53 PM EDT state, incidental TYPE AND SCREEN Routine 05/03/2023 3:53 PM EDT state, incidental URINE CULTURE Routine 05/03/2023 3:53 PM EDT state, incidental TSH Routine 05/03/2023 3:53 PM EDT state, incidental documented in this encounter Results * TSH (05/03/2023 3:53 PM EDT) Thyroid Stimulating Hormone, Plasma 3.40 0.50 - 4.30 uIU/mL 05/03/2023 6:50 PM EDT [facility] Blood Venous blood specimen / Unknown Venipuncture / Unknown 05/03/2023 3:53 PM EDT 05/03/2023 6:11 PM EDT Narrative [facility] - 05/03/2023 6:50 PM EDT Trimester Specific Ranges ?TSH (??IU/mL) 1st Trimester ??0.1 ??- 3.0 2nd Trimester ??0.19 - 4.06 3rd Trimester ??0.3 ??- 3.7 Miri Wu MD LAB BLOOD ORDERABLES Fin al Result Performing Organization Address [facility] de Phone Number [facility] [address] [place] [address] * T. Pallidum (Syphilis) antibodies with Reflex (05/03/2023 3:53 PM EDT) Syphilis Antibody (IgG+IgM) Nonreactive Nonreactive 05/03/2023 7:16 PM EDT [facility] Comment:Nonreactive. No sero logic evidence of syphilis. No follow-up necessary unless clinically indicated (e.g., early syphilis). Blood Venous blood specimen / Unknown Venipuncture / Unknown 05/03/2023 3:53 PM EDT 05/03/2023 6:11 PM EDT Miri Wu MD LAB BLOOD ORDERABLES Fin al Result Performing Organization Address [facility] de Phone Number [facility] [address] [place] [address] * Neisseria gonorrhea DNA by PCR (05/03/2023 3:53 PM EDT) Neisseria gonorrhea DNA PCR Result Not Detected Not Detected. 05/04/2023 3:00 PM EDT [facility] Urine Urine specimen / Unknown Non-blood Collection / Unknown 05/03/2023 3:53 PM EDT 05/03/2023 6:01 PM EDT Narrative [facility] - 05/04/2023 3:00 PM EDT This test is performed by the [employer] instrument for Real Time PCR C. trachomatis and N. gonorrhea. This test is FDA approved for use with endocervical, vaginal, and urine specimens. This test is used for clinical purposes. It should not be regarded as invesigational or for research. The [facility] Clinical Microbiology Laboratory is certified under the Clinical Laboratory Improvement Amendments of 1988 (CLIA-88) as qualified to perform high complexity clinical laboratory testing. Miri Wu MD LAB MICROBIOLOGY - GENER AL ORDERABLES Final Result Performing Organization Address City/[facility] Co de Phone Number [facility] [address] [place] [address] * Hepatitis C Antibody (05/03/2023 3:53 PM EDT) Hepatitis C Antibody Negative Negative 05/03/2023 6:55 PM EDT [facility] Blood Venous blood specimen / Unknown Venipuncture / Unknown 05/03/2023 3:53 PM EDT 05/03/2023 6:11 PM EDT Miri Wu MD LAB BLOOD ORDERABLES Fin al Result Performing Organization Address [facility] Co de Phone Number [facility] [address] [place] [address] * Hepatitis B surface Ag (05/03/2023 3:53 PM EDT) Pathologist [facility] Hepatitis B Surf Antigen Negative Negative 05/03/2023 7:16 PM EDT [facility] Blood Venous blood specimen / Unknown Venipuncture / Unknown 05/03/2023 3:53 PM EDT 05/03/2023 6:11 PM EDT Miri Wu MD LAB BLOOD ORDERABLES Fin al Result Performing Organization Address [facility] Co de Phone Number [facility] [address] [place] [address] * HIV 1 & 2 Antibody/Antigen Screen (05/03/2023 3:53 PM EDT) Pathologist [facility] HIV 1 & 2 Antibody/Antigen Screen Non Reactive Non Reactive 05/03/2023 7:04 PM EDT [facility] Comment:Screening for HIV 1 & 2 antibodies, and P24 antigen is NONREACTIVE. No confirmatory testing is required. Blood Venous blood specimen / Unknown Venipuncture / Unknown 05/03/2023 3:53 PM EDT 05/03/2023 6:11 PM EDT Miri Wu MD LAB BLOOD ORDERABLES Fin al Result Performing Organization Address [facility] Co de Phone Number [facility] [address] [place] [address] * Chlamydia trachomatis DNA by PCR (05/03/2023 3:53 PM EDT) Chlamydia trachomatis DNA PCR Result Not Detected Not Detected 05/04/2023 3:00 PM EDT [facility] Urine Urine specimen / Unknown Non-blood Collection / Unknown 05/03/2023 3:53 PM EDT 05/03/2023 6:01 PM EDT Narrative [facility] - 05/04/2023 3:00 PM EDT This test is performed by the [employer] instrument for Real Time PCR C. trachomatis and N. gonorrhea. This test is FDA approved for use with endocervical, vaginal, and urine specimens. This test is used for clinical purposes. It should not be regarded as invesigational or for research. The [facility]biology [facility] is certified under the Clinical Laboratory Improvement Amendments of 1988 (CLIA-88) as qualified to perform high complexity clinical laboratory testing. Miri Wu MD LAB MICROBIOLOGY - GENER AL ORDERABLES Final Result Performing Organization Address [facility] de Phone Number [facility] [address] [place] [address] * Drug Abuse Screen, Urine (05/03/2023 3:53 PM EDT) Amphetamine Screen Urine Negative Cutoff: 500 ng/mL 05/03/2023 10:55 PM EDT [facility] Benzodiazepines Screen Urine Negative Cutoff: 200 ng/mL 05/03/2023 10:55 PM EDT [facility] Cannabinoid Screen Urine Negative Cutoff: 50 ng/mL 05/03/2023 10:55 PM EDT [facility] Cocaine Screen Urine Negative Cutoff: 300 ng/mL 05/03/2023 10:55 PM EDT [facility] Barbiturate Screen Urine Negative Cutoff: 200 ng/mL 05/03/2023 10:55 PM EDT [facility] Opiate Screen Urine Negative Cutoff: 300 ng/mL 05/03/2023 10:55 PM EDT [facility] Methadone Screen Urine Negative Cutoff: 300 ng/mL 05/03/2023 10:55 PM EDT [facility] Buprenorphine Screen Urine Negative Cutoff: 10 ng/mL 05/03/2023 10:55 PM EDT [facility] Fentanyl Screen Urine Negative Cutoff: 1 ng/mL 05/03/2023 10:55 PM EDT [facility] Oxycodone Screen Urine Negative Cutoff: 100 ng/mL 05/03/2023 10:55 PM EDT [facility] Urine Urine specimen obtained by clean catch procedure / Unknown Non-blood Collection / Unknown 05/03/2023 3:53 PM EDT 05/03/2023 6:11 PM EDT Miri Wu MD LAB URINE ORDERABLES Fin al Result Performing Organization Address [facility] de Phone Number [facility] [address] [place] [address] * (ABNORMAL) Urine culture (05/03/2023 3:53 PM EDT) Culture 10,000 - 100,000 CFU/mL Mixed urogenita l, fecal, or skin kay present.( A) 05/06/2023 12:43 PM EDT [facility] Comment:This is a corrected result. Previous organism was Alpha hemolytic streptococcus vs gram positive familia on 05/04/2023 at 1514 EDT. Urine Urine specimen obtained by clean catch procedure / Unknown Non-blood Collection / Unknown 05/03/2023 3:53 PM EDT 05/03/2023 6:00 PM EDT Miri Wu MD LAB MICROBIOLOGY - GENER AL ORDERABLES Final Result Performing Organization Address [facility] Co de Phone Number [facility] [address] [place] [address] * (ABNORMAL) Rubella IgG (05/03/2023 3:53 PM EDT) Rubella Antibody IgG Positive( A) Negative 05/03/2023 10:17 PM EDT [facility] Comment: Rubella IgG Result Interpretation: ? Negative: [...] blood specimen / Unknown Venipuncture / Unknown 05/03/2023 3:53 PM EDT 05/03/2023 6:11 PM EDT Miri Wu MD LAB BLOOD ORDERABLES Fin al Result Performing Organization Address City/[facility]/ZIP Co de Phone Number [facility] [address] [place] [address] * Type and Screen (05/03/2023 3:53 PM EDT) ABO/Rh O Positive 05/02/2023 8:00 PM EDT [facility] Antibody Screen Negative 05/02/2023 8:00 PM EDT [facility] Specimen Expiration 05/06/2023 23:59 05/02/2023 8:00 PM EDT [facility] Blood Venous blood specimen / Unknown Venipuncture / Unknown 05/03/2023 3:53 PM EDT 05/03/2023 6:18 PM EDT Miri Wu MD LAB BLOOD BANK TEST ORDE RABLES Final Result Performing Organization Address [facility] Co de Phone Number BLOOD BANK [address] [place] [address], * CBC W/O Differential (05/03/2023 3:53 PM EDT) WBC Count 10.14 3.70 - 10.30 10*3/uL LAB HEMATOLOGY METHOD 05/03/2023 6:37 PM EDT [facility] RBC Count 4.89 3.90 - 5.20 10*6/uL LAB HEMATOLOGY METHOD 05/03/2023 6:37 PM EDT [facility] HGB 14.1 11.2 - 15.7 g/dL LAB HEMATOLOGY METHOD 05/03/2023 6:37 PM EDT [facility] HCT 43.2 34.0 - 45.0 % LAB HEMATOLOGY METHOD 05/03/2023 6:37 PM EDT [facility] Platelet Count 293 155 - 369 10*3/uL LAB HEMATOLOGY METHOD 05/03/2023 6:37 PM EDT [facility] MCV 88 79 - 98 fL LAB HEMATOLOGY METHOD 05/03/2023 6:37 PM EDT [facility] MCH 28.8 26.0 - 32.0 pg LAB HEMATOLOGY METHOD 05/03/2023 6:37 PM EDT [facility] MCHC 32.6 30.7 - 35.5 g/dL LAB HEMATOLOGY METHOD 05/03/2023 6:37 PM EDT [facility] RDW 14.0 11.5 - 14.5 % LAB HEMATOLOGY METHOD 05/03/2023 6:37 PM EDT [facility] MPV 10.2 8.8 - 12.5 fL LAB HEMATOLOGY METHOD 05/03/2023 6:37 PM EDT [facility] nRBC 0.0 <=0.0 per 100 WBCs LAB HEMATOLOGY METHOD 05/03/2023 6:37 PM EDT [facility] Blood Venous blood specimen / Unknown Venipuncture / Unknown 05/03/2023 3:53 PM EDT 05/03/2023 6:11 PM EDT us Miri Wu MD LAB BLOOD ORDERABLES Fin al Result Performing Organization Address City/State/[facility] Co de Phone Number [facility] [address] [place], [place] [id number] * US Pelvis Transvaginal (05/03/2023 3:28 PM EDT) Anatomical Region Laterality Modality Pelvis Ultrasound 05/03/2023 3:42 PM EDT Impressions 05/08/2023 9:55 AM EDT The OB Ultrasound you requested has been resulted. Please navigate to the Imaging tab in [employer] for review. This message has been generated by the interface. Narrative Procedure Note Miri Wu MD - 05/08/2023 IMPRESSION: The OB Ultrasound you requested has been resulted. Please navigate to theImaging tab in [employer] for review. This message has been generated by [email or web address] us Miri Wu MD IMG US PROCEDURES Final Result documented in this encounter Visit Diagnoses Diagnosis state, incidental- Primary state, incidental documented in this encounter Additional Health Concerns Assessment Noted Time A fall risk assessment has been complete d for the patient 05/03/2023 3:32 PM EDT documented as of this encounter Care Teams Watch Electrician Relationship Specialty Start Date End Date Waldemar Baltazar MD [address] [place] [address] PCP - General 01/06/23 Waldemar Baltazar MD [address] [place] [address] 01/06/23 documented as of this encounter
--- OUTSIDE RECORDS SUMMARY | 2024-07-18 08:34 | XMS_ITS | Encounter Summary ---
Author Organization [facility] Address [address] [place] [address] Care Team Providers Care Gauge And Weigh Machine Adjuster Name Role Phone Waldemar Baltazar MD Primary Care Provider Waldemar Baltazar MD Unavailable [phone] Encounter Details Date Type Department Care Team (Latest Contact Info) Description 04/17/2023 2:00 PM EDT Clinical Support Obstetrics & Gynecology [facility] [place] [address] test positive (Primary Dx) Social [...] Clinician Note - Miri Monk RN - 04/17/2023 2:00 PM EDT Patient presents for HCG draw will return on Monday for next draw! documented in this encounter Plan of Treatment Upcoming Encounters Date Type Department Care Team ( Contact Info) Description 08/01/2024 10:45 AM EST Routine Obstetrics & Gynecology [address] [place] [address] Chris Olguin MD [address] [place] [address] documented as of this encounter Procedures Procedure Name Priority Date/Time Associated Diagnosis Comments HCG, QUANTITATIVE Routine 04/17/2023 1:5 1 PM EDT test positive documented in this encounter Results * (ABNORMAL) hCG, Total Beta, Quantitative, Plasma (04/17/2023 1:51 PM EDT) hCG, Total Beta 141(H) <5 mIU/mL 04/17/2023 7:04 PM EDT [facility] Blood Venous blood specimen / Unknown Venipuncture / Unknown 04/17/2023 1:51 PM EDT 04/17/2023 6:08 PM EDT Narrative [facility] - 04/17/2023 7:04 PM EDT Patients: ? Normal Range Premenopausal [...] ORDERABLES Fin al Result [facility] [address] [place] [address] documented in this encounter Visit Diagnoses Diagnosis test positive- Primary examination or test, positive result documented in this encounter Additional Health Concerns Assessment Noted Time A fall risk assessment has been complete d for the patient 02/20/2023 3:35 PM EDT documented as of this encounter Care Teams Gauge And Weigh Machine Adjuster Relationship Specialty Start Date End Date Waldemar Baltazar MD [address] [place] [address] PCP - General 01/06/23 Waldemar Baltazar MD [address] [place] [address] 01/06/23 documented as of this encounter
--- OUTSIDE RECORDS SUMMARY | 2024-07-18 08:34 | XMS_ITS | Encounter Summary ---
Author Organization [facility] Address [address] [place] [address] Care Team Providers Care Painter Hand Name Role Phone Waldemar Baltazar MD Primary Care Provider Waldemar Baltazar MD Unavailable [phone] Reason for Visit * Reason Comments Recurrent Miscarriage Labs, few question s on follow up testing. Encounter Details Date Type Department Care Team (Late st Contact Info) Description 01/18/2023 10:45 AM EDT Office Visit Obstetrics & Gynecology [address] [place] [address] Miri Wu MD [address] [place] [address] Missed (Primary Dx) Social History [...] Sign Reading Time Taken Comments Blood Pressure 129/76 01/18/2023 10:52 AM EDT Pulse - - Temperature - - Respiratory Rate - - Oxygen Saturation - - Inhaled Oxygen Concentration - - Weight 133 kg (293 lb 3.4 oz) 01/18/2023 10:52 A M EDT Height - - Body Mass Index 48.79 01/11/2023 3:57 PM EDT documented in this encounter Miscellaneous Notes * Assessment & Plan Note - Miri Wu MD - 01/18/2023 10:59 AM EDT Associated Problem(s): Missed (Resolved 05/03/2023) - Labs: Blood type: O+ B-hcg 12/20/22 2238 --> 01/05/23 2933 --> 01/11/23 412 - Imaging: TVUS at [facility] on 01/05/23: single IUP without cardiac activity measuring [id number] for demise - Rh positive - repeat B-hcG today - we discussed performing recurrent miscarriage labs and ultrasound after this is resolved - recommend continuing PNV - will call with hormone level and plan next steps * Progress Notes - Miri Wu MD - 01/18/2023 10:45 AM EDT Gynecology Note Subjective Chief Complaint Patient presents with Recurrent Miscarriage Labs, few questions on follow up testing. Reid Heredia is a 17 y.o. here for a miscarriage follow up. 17yo here today to follow up after recent diagnosis of miscarriage. Had an ultrasound at [facility] that showed 6w5d with no cardiac activity. Beta-hcG has plateaued ~ 2000 over the course of 1 week. Has had 2 episodes of heavy vaginal bleeding that is starting to slow down- just brown spotting now. Would like to come in for recurrent [...] and suicidal ideas. Objective Visit Vitals BP 129/76 Body mass index is 48.79 kg/m??. Physical Exam Constitutional: Appearance: Normal appearance. [...] Data Review: Labs: Blood type: O+ B-hcg 12/20/222237 --> 01/05/23 2933 --> 01/11/23 412 Imaging: TVUS at [facility] on 01/05/23: single IUP without cardiac activity measuring 6w5d suspicious for demise Assessment/Plan Problem List Items Addressed This Visit Other Missed - Primary - Labs: Blood type: O+ B-hcg 12/20/222237 --> 01/05/23 2933 --> 01/11/23 412 - Imaging: TVUS at [facility] on 01/05/23: single IUP without cardiac activity measuring [id number] for demise - Rh positive - repeat B-hcG today - we discussed performing recurrent miscarriage labs and ultrasound after this is resolved - recommend continuing PNV - will call with hormone level and plan next steps Relevant Orders hCG, Total Beta, Quantitative, Plasma Time Spent: I personally spent a total of 22 minutes on this encounter. This time includes face to face with patient, counseling and discussion and/or coordination of care. documented in this encounter Plan of Treatment Upcoming Encounters Date Type Department Care Team (Late st Contact Info) Description 08/01/2024 10:45 AM EST Routine Obstetrics & Gynecology [address] [place] [address] Chris Olguin MD [address] [place] [address] documented as of this encounter Procedures Procedure Name Priority Date/Time Associated Diagnosis Comments HCG, QUANTITATIVE Routine 01/18/2023 10: 44 AM EDT Missed documented in this encounter Results * (ABNORMAL) hCG, Total Beta, Quantitative, Plasma (01/18/2023 10:44 AM EDT) hCG, Total Beta 12.6(H) <5 mIU/mL 01/18/2023 1:56 PM EDT [facility] Blood Venous blood specimen / Unknown Venipuncture / Unknown 01/18/2023 10:44 AM EDT 01/18/2023 1:26 PM EDT Narrative [facility] - 01/18/2023 1:56 PM EDT Patients: ? Normal Range Premenopausal [...] MD LAB BLOOD ORDERABLES Fin al Result [facility] [address] [place] [address] documented in this encounter Visit Diagnoses Diagnosis Missed - Primary documented in this encounter Additional Health Concerns Assessment Noted Time A fall risk assessment has been complete d for the patient 01/18/2023 10:52 AM EDT documented as of this encounter Care Teams Painter Hand Relationship Specialty Start Date End Date Waldemar Baltazar MD [address] [place] [address] PCP - General 01/06/23 Waldemar Baltazar MD [address] [place] [address] 01/06/23 documented as of this encounter
--- OUTSIDE RECORDS SUMMARY | 2024-07-18 08:34 | XMS_ITS | Encounter Summary ---
Author Organization [facility] Address [address] [place] [address] Care Team Providers Care Public Finance Specialist Name Role Phone Waldemar Baltazar MD Primary Care Provider [phone] Waldemar Baltazar MD Unavailable [phone] Encounter Details Date Type Department Care Team (Latest Contact Info) Description 05/03/2023 3:30 PM EDT Ancillary Procedure Obstetrics & Gynecology [address] [place] [address] state, incidental Social History Tobacco [...] AM EST Routine Obstetrics & Gynecology [address] [place] [address] Chris Olguin MD [address] [place] [address] documented as of this encounter Procedures Procedure Name Priority Date/Time Associated Diagnosis Comments US PELVIS TRANSVAGINAL Routine 05/03/2023 3:28 PM EDT state, incidental documented in this encounter Results * US Pelvis Transvaginal (05/03/2023 3:28 PM EDT) Anatomical Region Laterality Modality Pelvis Ultrasound 05/03/2023 3:42 PM EDT Impressions 05/08/2023 9:55 AM EDT The OB Ultrasound you requested has been resulted. Please navigate to the Imaging tab in [employer] for review. This message has been generated by the interface. Narrative Procedure Note Miri Wu MD - 05/08/2023 IMPRESSION: The OB Ultrasound you requested has been resulted. Please navigate to theImaging tab in [employer] for review. This message has been generated by theinterface. us Miri Wu MD IMG US PROCEDURES Final Result documented in this encounter Visit Diagnoses Diagnosis state, incidental documented in this encounter Additional Health Concerns Assessment Noted Time A fall risk assessment has been complete d for the patient 05/03/2023 3:32 PM EDT documented as of this encounter Care Teams Public Finance Specialist Relationship Specialty Start Date End Date Waldemar Baltazar MD [address] [place] [address] PCP - General 01/06/23 Waldemar Baltazar MD [address] [place] [address] 01/06/23 documented as of this encounter
--- OUTSIDE RECORDS SUMMARY | 2024-07-18 08:34 | XMS_ITS | Encounter Summary ---
Author Organization [facility] Address [address] [place] [address] Care Team Providers Care Envelope Addresser Name Role Phone Waldemar Baltazar MD Primary Care Provider Waldemar Baltazar MD Unavailable [phone] Encounter Details Date Type Department Care Team (Latest Contact Info) Description 06/14/2023 Travel Social History Tobacco Use Types Packs/Day [...] AM EST Routine Obstetrics & Gynecology [address] [place] [address] Chris Olguin MD [address] [place] [address] documented as of this encounter Visit Diagnoses Not on filedocumented in this encounter Additional Health Concerns Assessment Noted Time A fall risk assessment has been complete d for the patient 06/14/2023 3:32 PM EDT documented as of this encounter Care Teams Envelope Addresser Relationship Specialty Start Date End Date Waldemar Baltazar MD [address] [place] [address] PCP - General 01/06/23 Waldemar Baltazar MD [address] [place] [address] 01/06/23 documented as of this encounter
--- OUTSIDE RECORDS SUMMARY | 2024-07-18 08:34 | XMS_ITS | Encounter Summary ---
Author Organization [facility] Address [address] [place] [address] Care Team Providers Care Attraction Worker Name Role Phone Waldemar Baltazar MD Primary Care Provider [phone] Waldemar Baltazar MD Unavailable [phone] Encounter Details Date Type Department Care Team (Latest Contact Info) Description 04/17/2023 Travel Social History Tobacco Use Types Packs/Day [...] Routine Obstetrics & Gynecology [address] [place] [address] Chris Olguin MD [address] [place] [address] documented as of this encounter Visit Diagnoses Not on filedocumented in this encounter Additional Health Concerns Assessment Noted Time A fall risk assessment has been complete d for the patient 02/20/2023 3:35 PM EDT documented as of this encounter Care Teams Attraction Worker Relationship Specialty Start Date End Date Waldemar Baltazar MD [address] [place] [address] PCP - General 01/06/23 Waldemar Baltazar MD [address] [place] [address] 01/06/23 documented as of this encounter
--- OUTSIDE RECORDS SUMMARY | 2024-07-18 08:34 | XMS_ITS | Encounter Summary ---
Author Organization [facility] Address [address] [place] [address] Care Team Providers Care Trimmer Loader Name Role Phone Waldemar Baltazar MD Primary Care Provider [phone] Waldemar Baltazar MD Unavailable Reason for Visit * Reason Onset Date Comments [facility] Clinical Concern/Question 04/12/2023 Encounter Details Date Type Department Care Team (Late st Contact Info) Description 04/12/2023 Telephone Obstetrics & Gynecology [address] [place] [address] Miri Wu MD [address] [place] [address] [facility] Clinical Concern/Question Social History Tobacco Use Types Packs/Day Years [...] * Telephone Encounter - Rob Galaviz - 04/12/2023 3:32 PM EDT Lm, order in. Asked to call back and schedule outpatient lab for nurse visit. * Telephone Encounter - Kay Quiros - 04/12/2023 1:38 PM EDT Clinical Concern/Question Reason for Call: Pt has had a few pos home preg test. Asking to have beta and progesterone checked.Please call pt to discuss/advise Best contact number: [phone] (mobile) Optimal time of day to reach caller: ANYTIME Additional comments/information from caller: None Note: Please do not reply to this message. Follow-up communication and further actions as a result of this message need to be communicated with the patient directly, if the patient is not active onMyChart. If the patient is active on MyChart, they will receive notification of the communication/outcome via [employer]. documented in this encounter Plan of Treatment Upcoming Encounters Date Type Department Care Team (Late st Contact Info) Description 08/01/2024 10:45 AM EST Routine [facility] [address] [place] [address] Chris Olguin MD [address] [place] [address] documented as of this encounter Visit Diagnoses Not on filedocumented in this encounter Additional Health Concerns Assessment Noted Time A fall risk assessment has been complete d for the patient 02/20/2023 3:35 PM EDT documented as of this encounter Care Teams Trimmer Loader Relationship Specialty Start Date End Date Waldemar Baltazar MD [address] [place] [address] PCP - General 01/06/23 Waldemar Baltazar MD [address] [place] [address] (work) 01/06/23 documented as of this encounter
--- OUTSIDE RECORDS SUMMARY | 2024-07-18 08:34 | XMS_ITS | Encounter Summary ---
Author Organization [facility] Address [address] [place] [address] Care Team Providers Care Frame Cleaner Name Role Phone Waldemar Baltazar MD Primary Care Provider [phone] Waldemar Baltazar MD Unavailable [phone] Reason for Visit * Reason Comments Routine Visit Encounter Details Date Type Department Care Team (Late st Contact Info) Description 05/10/2023 11:15 AM EDT Routine Obstetrics & Gynecology [address] [place] [address] Miri Wu MD [address] [place] [address] state, incidental (Primary Dx) [...] Sign Reading Time Taken Comments Blood Pressure 124/75 05/10/2023 11:54 AM EDT Pulse - - Temperature - - Respiratory Rate - - Oxygen Saturation - - Inhaled Oxygen Concentration - - Weight 132 kg (291 lb 7.2 oz) 05/10/2023 11:54 A M EDT Height - - Body Mass Index 48.5 02/20/2023 3:34 PM EDT documented in this encounter Miscellaneous Notes * Assessment & Plan Note - Miri Wu MD - 05/10/2023 2:39 PM EDT Associated Problem(s): state, incidental (Resolved 12/28/2023) - TVUS: viable intrauterine , blel at 7w2d vs. Twins at 6w4d? Difficult to assess. - repeat US in 1 week with formal ultrasound with area director to determine bell vs. Twins. * Progress Notes - Miri Wu MD - 05/10/2023 11:15 AM EDT Note Subjective 18yo at 7w1d here today for viability US. Doing well - some nausea. No vaginal bleeding. Isanxious about US. OB History Para Term AB [...] the following prescription(s): mv-min-fe fum-fa-dha, progesterone, and promethazine. Review of Systems A 14 point ROS was performed and is negative except noted above in HPI Objective Physical Exam Visit Vitals BP 124/75 Pregravid weight: 129 kg (284 lb 6.3 oz) Pregravid BMI: 47.33 Body mass index is 48.5 kg/m??. See encounter summary and flowsheet for exam details. Gen: NAD, well-appearing CV: RRR, no edema Resp: non-labored respirations Abd: soft, nontender : normal external genitalia TVUS: viable intrauterine , bell at 7w2d vs. Twins at 6w4d? Difficult to assess. Assessment/Plan Problem List Items Addressed This Visit Other state, incidental - Primary - TVUS: viable intrauterine , bell at 7w2d vs. Twins at 6w4d? Difficult to assess. - repeat US in 1 week with formal ultrasound with area director to determine bell vs. Twins. Relevant Orders US Pelvis Transvaginal US Pelvis Transvaginal Time Spent: I personally spent a total of 32 minutes on this encounter. This time includes face to face with patient, counseling and discussion and/or coordination of care. documented in this encounter Plan of Treatment Upcoming Encounters Date Type Department Care Team (Late st Contact Info) Description 08/01/2024 10:45 AM EST Routine [facility] [address] [place] [address] Chris Olguin MD [address] [place] [address] documented as of this encounter Results * US Pelvis Transvaginal (05/10/2023 11:25 AM EDT) Anatomical Region Laterality Modality Pelvis Ultrasound 05/10/2023 11:3 3 AM EDT Impressions 05/10/2023 5:28 PM EDT The OB Ultrasound you requested has been resulted. Please navigate to the Imaging tab in [email or web address] for review. This message has been generated by the interface. Narrative Procedure Note Miri Wu MD - 05/10/2023 IMPRESSION: The OB Ultrasound you requested has been resulted. Please navigate to theImaging tab in [employer] for review. This message has been generated by [facility] us Miri Wu MD IMG US PROCEDURES Final Result documented in this encounter Visit Diagnoses Diagnosis state, incidental- Primary state, incidental documented in this encounter Additional Health Concerns Assessment Noted Time A fall risk assessment has been complete d for the patient 05/10/2023 11:56 AM EDT documented as of this encounter Care Teams Frame Cleaner Relationship Specialty Start Date End Date Waldemar Baltazar MD [address] [place] [address] PCP - General 01/06/23 Waldemar Baltazar MD [address] [place] [address] 01/06/23 documented as of this encounter
--- OUTSIDE RECORDS SUMMARY | 2024-07-18 08:34 | XMS_ITS | Encounter Summary ---
Author Organization [facility] Address [address] [place] [address] Care Team Providers Care Complex Manager Name Role Phone Waldemar Baltazar MD Primary Care Provider [phone] Waldemar Baltazar MD Unavailable [phone] Reason for Referral * Genetic Testing (Routine) - Authorized Specialty Diagnoses / Procedures Referred By Contac t Referred To Contact Lab Diagnoses Recurrent loss Procedures MTHFR Mutation Detection Miri Wu MD [address] [place] [address] Phone: tel: fax: Referral ID Status Reason Start Date Expiration Date V isits Requested Visits Authorized [id number] Authorized 02/20/2023 08/21/2024 1 1 * Genetic Testing (Routine) - Authorized Specialty Diagnoses / Procedures Referred By Contac t Referred To Contact Lab Diagnoses Recurrent loss Procedures Factor V Leiden and Prothrombin Mutation by PCR Miri Wu MD [address] [place] [address] Phone: tel: fax: Referral ID Status Reason Start Date Expiration Date V isits Requested Visits Authorized [id number] Authorized 02/20/2023 08/21/2024 1 1 Reason for Visit * Reason Comments Ultrasound Ultrasound and lab w ork today for reoccurring miscarriages. Encounter Details Date Type Department Care Team (Late st Contact Info) Description 02/20/2023 3:00 PM EDT Office Visit Obstetrics & Gynecology [address] [place] [address] Miri Wu MD [address] [place] [address] Recurrent loss (Primary Dx) Social History Tobacco Use Types [...] - - Temperature - - Respiratory Rate 17 02/20/2023 3:34 PM EDT Oxygen Saturation - - Inhaled Oxygen Concentration - - Weight 127 kg (279 lb 15.8 oz) 02/20/2023 3:34 P M EDT Height 165.1 cm (5' 5 ) 02/20/2023 3:34 PM EDT Body Mass Index 46.59 02/20/2023 3:34 PM EDT documented in this encounter Miscellaneous Notes * Assessment & Plan Note - Miri Wu MD - 02/20/2023 3:03 PM EDT Associated Problem(s): Recurrent loss - TVUS: normal pelvic anatomy - RPL labs today - continue vitamin - will call with results * Progress Notes - Miri Wu MD - 02/20/2023 3:00 PM EDT Gynecology Note Subjective Chief Complaint Patient presents with Ultrasound Ultrasound and lab work today for reoccurring miscarriages. Reid Heredia is a 17 y.o. here for [facility]ER ultrasound and labs for recurrent loss. 17yo here today for ultrasound and labs for recurrent loss. Just had period last week. Taking vitamin. Has been working out since last visit - has lost 14 pounds! Would like to TTC in about 6 [...] for cold intolerance and heat intolerance. Genitourinary: Negative for difficulty urinating, dyspareunia, dysuria, menstrual problem and pelvic pain. Musculoskeletal: Negative for arthralgias and back pain. Neurological: Negative for syncope and numbness. Hematological: Negative. Psychiatric/Behavioral: Negative for self-injury and suicidal ideas. Objective Visit Vitals Resp 17 Body mass index is 46.59 kg/m??. Physical Exam Constitutional: Appearance: Normal appearance. Genitourinary: Vulva normal. HENT: Head: Normocephalic and atraumatic. Cardiovascular: Rate [...] Mood normal. Behavior: Behavior normal. Vitals reviewed. TVUS: normal pelvic anatomy Assessment/Plan Problem List Items Addressed This Visit Other Recurrent loss - Primary - TVUS: normal pelvic anatomy - RPL labs today - continue vitamin - will call with results Relevant Orders US Pelvis Transvaginal Factor V Leiden and Prothrombin Mutation by PCR Protime-INR Protein C activity Protein S activity Lupus anticoagulant Antithrombin III Anticardiolipin Anti-Beta 2 Glycoprotein, IgG and IgM MTHFR Mutation Detection Homocysteine (cardio), FPIA Hemoglobin A1c TSH Time Spent: I personally spent a total of 31 minutes on this encounter. This time includes face to face with patient, counseling and discussion and/or coordination of care. documented in this encounter Plan of Treatment Upcoming Encounters Date Type Department Care Team (Late st Contact Info) Description 08/01/2024 10:45 AM EST Routine [facility] [address] [place] [address] Chris Olguin MD [address] [place] [address] documented as of this encounter Procedures Procedure Name Priority Date/Time Associated Diagnosis Comments ANTI-BETA 2 GLYCOPROTEIN, IG G AND IGM Routine 02/20/2023 3:14 PM EDT Recurrent loss FACTOR V LEIDEN AND PROTHROM BIN MUTATION BY PCR Routine 02/20/2023 3:14 PM EDT Recurrent loss METHYLENETETRAHYDROFOLATE REDUCTASE (MTHFR) 2 VARIANTS (SO) Routine 02/20/2023 3:14 PM EDT Recurrent loss ANTICARDIOLIPIN Routine 02/20/2023 3:14 PM EDT Recurrent loss HOMOCYSTEINE Routine 02/20/2023 3:14 PM EDT Recurrent loss PROTEIN S ACTIVITY Routine 02/20/2023 3: 14 PM EDT Recurrent loss PROTEIN C ACTIVITY Routine 02/20/2023 3: 14 PM EDT Recurrent loss LUPUS ANTICOAGULANT PROFILE Routine 01/27 3:14 PM EDT Recurrent loss PROTHROMBIN TIME(PT) / INR Routine 02/20 3:14 PM EDT Recurrent loss ANTITHROMBIN III Routine 02/20/2023 3:14 PM EDT Recurrent loss TSH Routine 02/20/2023 3:14 PM EDT Recurrent loss HEMOGLOBIN A1C Routine 02/20/2023 3:14 PM EDT Recurrent loss documented in this encounter Results * TSH (02/20/2023 3:14 PM EDT) Thyroid Stimulating Hormone, Plasma 2.18 0.50 - 4.30 uIU/mL 02/20/2023 6:48 PM EDT [facility] Blood Venous blood specimen / Unknown Venipuncture / Unknown 02/20/2023 3:14 PM EDT 02/20/2023 6:20 PM EDT Narrative [facility] - 02/20/2023 6:48 PM EDT Trimester Specific Ranges ?TSH (??IU/mL) 1st Trimester ??0.1 ??- 3.0 2nd Trimester ??0.19 - 4.06 3rd Trimester ??0.3 ??- 3.7 us Miri Wu MD LAB BLOOD ORDERABLES Fin al Result [facility] [address] [place] [address] * Hemoglobin A1c (02/20/2023 3:14 PM EDT) Pathologist [facility] Hemoglobin A1c 4.9 <5.7 % 02/20/2023 7:33 PM EDT [facility] Blood Venous blood specimen / Unknown Venipuncture / Unknown 02/20/2023 3:14 PM EDT 02/20/2023 6:20 PM EDT Narrative [facility] - 02/20/2023 7:33 PM EDT HA1C Interpretive Data: Diagnosis of Diabetes: Diabetic > or = 6.5% Pre-diabetic 5.7 to 6.4% Non-diabetic < or = 5.6% Glycemic Targets for Type I and Type II Diabetics: Non- Adults <7.0% Adults <6.0% Children and Adolescents <7.5% Source: ??[place] [employer]. Standards of medical care in diabetes,2017. Diabetes Care.2017:40 (suppl 1):S1-S135. HbA1c assay performed by an ion-exchange chromatography method that is certified traceable to the DCCT. Miri Wu MD LAB BLOOD ORDERABLES Fin al Result [facility] [address] [place] [address] * Homocysteine (cardio), FPIA (02/20/2023 3:14 PM EDT) [facility] Homocysteine 7.8 5.0 - 15.0 umol/L 02/20/2023 9:03 PM EDT [facility] Blood Venous blood specimen / Unknown Venipuncture / Unknown 02/20/2023 3:14 PM EDT 02/20/2023 6:51 PM EDT Miri Wu MD LAB BLOOD ORDERABLES Fin al Result [facility] [address] [place] [address] * MTHFR Mutation Detection (02/20/2023 3:14 PM EDT) [facility] MTH PCR Specimen Whole Blood 023 10:41 PM EDT [facility] (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) MTHFR Mutation: c.1286A>C Heterozygous 02/24/2023 10:41 PM EDT [facility] ([facility]) MTHFR INTERPRETATION See Note 02/24/2023 10:41 PM EDT [facility] ([facility]) Blood Venous blood specimen / Unknown Venipuncture / Unknown 02/20/2023 3:14 PM EDT 02/20/2023 6:51 PM EDT Narrative [facility] ([facility]) - 02/24/2023 10:41 PM EDT Indication for testing: Determine genetic contribution to hyperhomocysteinemia. 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 This genotype may be associated with a mild, but clinically insignificant, decrease in MTHFR enzyme activity. This result has been reviewed and approved by Kadie Faith, Ph.D. Background Information: Methylenetetrahydrofolate ?Reductase (MTHFR) 2 Variants Characteristics: Variants in the MTHFR gene may reduce enzyme activity contributing to hyperhomocysteinemia. Although hyperhomocysteinemia was previously reported to be a risk factor for many conditions, especially venous thrombosis and cardiovascular disease, recent meta-analysis casts doubt on whether lifelong moderate homocysteine elevation has an effect on cardiovascular disease. The [place] [employer] Practice Guidelines indicate that individuals with elevated homocysteine and two copies of the c.665C>T variant have an odds ratio of 1.27 for venous thromboembolism. Thus, they recommend MTHFR genotyping not be ordered as part of a routine evaluation for recurrent loss or thromobophilia due to questionable clinical significance. Incidence: The allele frequency of the c.665C>T variant is 0.35 in Caucasians, 0.5 in Hispanics, and 0.12 in Americans. Inheritance: Autosomal recessive; two copies of the c.665C>T variant may be a contributing factor to hyperhomocysteinemia. Variants Tested: c.665C>T(p.Cmn004Htc) and c.1286A>C(p.Abe063Wle). (legacy names C677T and [id number], respectively). Clinical Sensitivity: Undefined; hyperhomocysteinemia is caused by genetic, physiologic and environmental factors. MTHFR variants are only one contributing factor. Methodology: Polymerase chain reaction (PCR) and fluorescence monitoring. Analytical Sensitivity and Specificity: 99 percent. Limitations: Only two MTHFR gene variants (c.665C>T and c.1286A>C) are tested. Diagnostic errors can occur due to rare sequence variations. This test was developed and its performance characteristics determined by [facility]. It has not been cleared or approved by the US Food and Drug Administration. This test was performed in a CLIA certified laboratory and is intended for clinical purposes. Counseling and informed consent are recommended for genetic testing. Consent forms are available online. Performed by [facility], [address] [place] [id number] [email or web address], Zoran Jones MD, PHD, Lab. Director Miri Wu MD LAB BLOOD ORDERABLES Fin al Result [facility] ([facility] [address] [place] [address] * Anti-Beta 2 Glycoprotein, IgG and IgM (02/20/2023 3:14 PM EDT) Anti-Beta 2 Glycoprotein 1, IgG <1.4 <20.0 U/mL 02/24/2023 10:34 PM EDT [facility] Anti-Beta 2 Glycoprotein IgG Interpretation Negative Negative 02/24/2023 10:34 PM EDT [facility] Anti-Beta 2 Glycoprotein 1, IgM 1.9 <20.0 U/mL 02/24/2023 10:34 PM EDT [facility] Anti-Beta 2 Glycoprotein IgM Interpretation Negative Negative 02/24/2023 10:34 PM EDT [facility] Blood Venous blood specimen / Unknown Venipuncture / Unknown 02/20/2023 3:14 PM EDT 02/20/2023 6:20 PM EDT Miri Wu MD LAB BLOOD ORDERABLES Fin al Result Performing Organization Address City/[facility] Co de Phone Number [facility] [address] [place] [address] * Anticardiolipin (02/20/2023 3:14 PM EDT) [facility] IgG Anticardiolipin <1.60 <20.00 GPL Units/mL 02/24/2023 10:33 PM EDT [facility] Anticardiolipin IgG Interpretation Negative Negative 02/24/2023 10:33 PM EDT [facility] IgM Anticardiolipin <1.50 <20.00 MPL Units/mL 02/24/2023 10:33 PM EDT [facility] Anticardiolipin IgM Interpretation Negative Negative 02/24/2023 10:33 PM EDT [facility] Blood Venous blood specimen / Unknown Venipuncture / Unknown 02/20/2023 3:14 PM EDT 02/20/2023 6:20 PM EDT Miri Wu MD LAB BLOOD ORDERABLES Fin al Result Performing Organization Address [facility] Co de Phone Number [facility] [address] [place] [address] * Antithrombin III (02/20/2023 3:14 PM EDT) [facility] Antithrombin III 97 90 - 133 % LAB COAGULATION METHOD 02/20/2023 6:40 PM EDT [facility] Blood Venous blood specimen / Unknown Venipuncture / Unknown 02/20/2023 3:14 PM EDT 02/20/2023 6:21 PM EDT Miri Wu MD LAB BLOOD ORDERABLES Fin al Result Performing Organization Address City/[facility] Co de Phone Number [facility] [address] [place] [address] * Lupus anticoagulant (02/20/2023 3:14 PM EDT) [facility] Lupus Anticoagulant Result Lupus anticoagulant (LA) not detected by either LA-sensitive aPTT or dRVVT assays. If clinical suspicion for antiphospholipid syndrome is high, consider testing for antibodies against cardiolipin and [id number] n I. 3 12:46 PM EDT [facility] aPTT Lupus Anticoagulant Sensitive 33.7 <=41.0 sec LAB COAGULATION METHOD 3 12:46 PM EDT [facility] DRVVT Screen 31.4 sec LAB COAGULATION METHOD 3 12:46 PM EDT [facility] DRVVT Screen Ratio 0.81 <1.20 LAB COAGULATION METHOD 3 12:46 PM EDT [facility] Blood Venous blood specimen / Unknown Venipuncture / Unknown 02/20/2023 3:14 PM EDT 02/20/2023 6:21 PM EDT Miri Wu MD LAB BLOOD ORDERABLES Fin al Result Performing Organization Address [facility] de Phone Number [facility] [address] [place] [address] * Protein S activity (02/20/2023 3:14 PM EDT) Protein S Activity 79.0 57 - 143 % LAB COAGULATION METHOD 02/22/2023 4:53 AM EDT [facility] Blood Venous blood specimen / Unknown Venipuncture / Unknown 02/20/2023 3:14 PM EDT 02/20/2023 6:21 PM EDT Narrative [facility] - 02/22/2023 4:53 AM EDT Coagulation proteins produced in liver, especially the vitamin K dependent ones (FII, FVII, FIX, FX, Protein C and Protein S) are normally decreased in newborns, increasing to adult levels over the first six months. Those produced in endothelium (FVIII, vWF) approximate adult levels throughout development. Miri Wu MD LAB BLOOD ORDERABLES Fin al Result Performing Organization Address City/[facility] Co de Phone Number [facility] [address] [place] [address] * Protein C activity (02/20/2023 3:14 PM EDT) Protein C 128 83 - 168 % LAB COAGULATION METHOD 02/22/2023 4:53 AM EDT [facility] Blood Venous blood specimen / Unknown Venipuncture / Unknown 02/20/2023 3:14 PM EDT 02/20/2023 6:21 PM EDT Narrative [facility] - 02/22/2023 4:53 AM EDT Coagulation proteins produced in liver, especially the vitamin K dependent ones (FII, FVII, FIX, FX, Protein C and Protein S) are normally decreased in newborns, increasing to adult levels over the first six months. Those produced in endothelium (FVIII, vWF) approximate adult levels throughout development. Low levels of protein C are expected in liver disease and during coumadin therapy. us Miri Wu MD LAB BLOOD ORDERABLES Fin al Result [facility] [address] [place] [address] * Protime-INR (02/20/2023 3:14 PM EDT) Pathologist [facility] Prothrombin Time 13.1 12.0 - 14.3 sec LAB COAGULATION METHOD 02/20/2023 6:42 PM EDT [facility] INR 1.0 0.9 - 1.1 LAB COAGULATION METHOD 02/20/2023 6:42 PM EDT [facility] Blood Venous blood specimen / Unknown Venipuncture / Unknown 02/20/2023 3:14 PM EDT 02/20/2023 6:21 PM EDT Narrative [facility] - 02/20/2023 6:42 PM EDT OPTIMAL INR RANGES FOR PATIENT ON ORAL ANTICOAGULANT THERAPY Prevention of venous thromboembolism ?INR 2.0 to 3.0 In patients with heart disease: Atrial fibrillation ?INR 2.0 to 3.0 Valvular heart disease ? INR 2.0 to 3.0 Tissue heart valves ?INR 2.0 to 3.0 Mechanical prosthetic valves ? INR 2.5 to 3.5 Prevention of recurrent DE ? INR 2.5 to 3.5 us Miri Wu MD LAB BLOOD ORDERABLES Fin al Result [facility] [address] [place] [address] * Factor V Leiden and Prothrombin Mutation by PCR (02/20/2023 3:14 PM EDT) Interpretation F5 c.1601G>A (formerly known as Factor V Leiden): Negative F2 c.*97G>A (formerly known as Prothrombin [id number]): Negative This patient is unlikely to have an increased risk of venous thrombosis related to these two genetic variants. Venous thrombosis is a relatively common disorder and the genetic causes are largely unknown. These results are unlikely to significantly reduce the venous thrombosis risk derived from clinical and family history. Variant Description: 1. Coagulation factor V gene (F5): [id number], chr1: g.142164319T>T (hg38), c.1601G>A (NM_000130.4), p.Wbp381Xhl (NP_000121.2), 2. Coagulation factor II (F2): [id number], chr11: g.88279226N>A (hg38), c.*97G>A(NM_000506 .4) 02/27/2023 12:10 PM EDT [facility] Methodology Polymerase chain reaction (PCR) was used to amplify the target regions of the F5 gene and the F2 gene, followed by allelic discrimination with Taqman probes. This test is designed for the detection of the two variants listed above, other variants will not be detected. 02/27/2023 12:10 PM EDT [facility] References 1. José EUCEDA. Factor V Leiden Thrombophilia. 2009Nov 03. Vivienne 2. José EUCEDA. Prothrombin-Relate d Thrombophilia. 2013Apr 10 Vivienne 02/27/2023 12:10 PM EDT [facility] Disclaimer This test was developed and its performance characteristics determined by the Clinical [facility] Pathology Laboratory at the [facility]. It has not been cleared or approved by the U.S. Food and Drug Administration. This test does not require FDA approval. This test is used for clinical purposes. It should not be regarded as investigational or for research. This laboratory is certified under the Clinical laboratory Improvement Amendments of 1988 (CLIA-88) as qualified to perform high complexity clinical laboratory testing. 02/27/2023 12:10 PM EDT [facility] Blood Venous blood specimen / Unknown Venipuncture / Unknown 02/20/2023 3:14 PM EDT 02/20/2023 6:08 PM EDT us Miri Wu MD LAB MOLECULAR DIAGNOSTIC S ORDERABLES Final Result [facility] [address] [place] [address], [place] * US Pelvis Transvaginal (02/20/2023 3:01 PM EDT) Anatomical Region Laterality Modality Pelvis Ultrasound 02/20/2023 3:51 PM EDT Impressions 02/23/2023 2:27 PM EDT The OB Ultrasound you requested has been resulted. Please navigate to the Imaging tab in [employer] for review. This message has been generated by the interface. Narrative Procedure Note Miri Wu MD - 02/23/2023 IMPRESSION: The OB Ultrasound you requested has been resulted. Please navigate to theImaging tab in [employer] for review. This message has been generated by theinterface. us Miri Wu MD IMG US PROCEDURES Final Result documented in this encounter Visit Diagnoses Diagnosis Recurrent loss- Primary Recurrent loss documented in this encounter Additional Health Concerns Assessment Noted Time A fall risk assessment has been complete d for the patient 02/20/2023 3:35 PM EDT documented as of this encounter Care Teams Complex Manager Relationship Specialty Start Date End Date Waldemar Baltazar MD [address] [place] [address] PCP - General 01/06/23 Waldemar Baltazar MD [facility] [employer] [place] [phone] 01/06/23 documented as of this encounter
[2024-07-18 09:10] VITALS: BP 114/61; PULSE 87; RESP 20; TEMP 36.7; O2SAT 96; BMI 45.7
--- NOTE | 2024-07-18 09:25 | ED_ITS ---
Discharge Plan Disposition Patient Disposition: Home, Self-Care Condition: Good Prescriptions Prescriptions: New amoxicillin 500 mg tablet 500 mg PO TID 10 Days Qty: 30 0RF Referrals Follow up/Referrals: Waldemar Baltazar [Primary Care Provider] - See instructions Activity Restrictions/Add. Instructions Additional Instructions/Restrictions: Drink plenty of fluids. Take tylenol for pain or fever. Take the medications as directed. Follow up with your regular doctor. GO TO THE ER FOR ANY WORSENING SYMPTOMS Clinical Impressions Clinical Impression: Pharyngitis, Stand Alone Forms Stand Alone Forms: Work/School Release Instructions Patient Instructions: DI for Pharyngitis/Tonsillopharyngitis -- Adult Print Language Print Language: Romansh Discharge ED Provider: Rios Gutierrez [facility] General Stated complaint: sore throat, body aches, fever, headache Mode of Arrival: Ambulatory Source of Information: Patient Limitations: No Limitations Time Seen by Provider: 07/18/24 09:25 Description of Symptoms (Recalled from Triage Doc. by RN): PATIENT C/O SORE TH ROAT, BODY ACHES, FATIGUE, HEADACHE AND COUGH THAT STARTED YESTERDAY MORNING. PATIENT IS 5 WEEKS HEENT Symptoms (Recalled from RN notes): Yes Resp Symptoms (Recalled from RN notes): Yes Skin Symptoms (Recalled from RN notes): No MS Symptoms (Recalled from RN notes): No Functional Status (Recalled from RN notes): WNL Related Data Previous Rx's ?Medication ?Instructions ?Recorded amoxicillin 500 mg tablet 500 mg PO TID 10 days #30 tabs 07/18/24 Allergies Allergy/AdvReac Type Severity Reaction Status Date / Time No Known Allergies Allergy Verified 03/05/24 15:29 Worker's Comp Is this a Worker's Comp case?: No [facility] Disclaimer: The information contained in this section may have been updated after the patient was seen, as this information can be updated by other users. Medical History (Updated 07/18/24 @ 09:45 by Rios Gutierrez APRN) Asthma Surgical History (Updated 07/01/24 @ 08:48 by Jazmyne Hubbard RN) History of section Social History Smoking Status: Never smoker alcohol intake: never substance use type: denies use current occupational status: student household members: family housing: house ROS Obtained: Yes All systems reviewed & no additional complaints except as documented Constitutional Constitutional: Reports chills and Reports fever(s) Eyes Eyes: Denies eye discharge ENT Ears, Nose, Mouth, and Throat: Reports as per HPI Cardiovascular Cardiovascular: Denies chest pain Respiratory Respiratory: Denies chest congestion and Reports cough Gastrointestinal Gastrointestingal: Reports nausea; Denies abdominal pain, constipation, cramping, diarrhea or vomiting Musculoskeletal Musculoskeletal: Denies arthralgias Integumentary/Breasts Skin/Breast: Denies rash Neurologic Neurologic: Denies paresthesias Physical Exam General General appearance: alert and in no apparent distress Head Head exam: atraumatic, normocephalic and normal inspection Eye Eye exam: Present normal appearance, PERRL and EOMI ENT ENT exam: Present mucous membranes moist and normal external ear exam Expanded ENT Exam TM/Canal exam: Bilateral TM: erythema and bulging Nose exam: Absent sinus tenderness Mouth exam: Present normal external inspection; Absent drooling Teeth exam: Present normal inspection Throat exam: Present tonsillar erythema, tonsillomegaly and tonsillar exudate Neck Neck exam: Present normal inspection, full ROM and trachea midline; Absent tenderness, meningismus or lymphadenopathy Chest Chest inspection: Present normal inspection and symmetric chest wall rise; Absent tenderness Respiratory Respiratory exam: Present normal lung sounds bilaterally; Absent respiratory distress, wheezes, stridor or accessory muscle use Cardiovascular Cardiovascular exam: Present regular rate and normal rhythm; Absent systolic murmur or diastolic murmur Abdominal Exam Abdominal exam: Present soft and normal bowel sounds; Absent distention, tenderness, guarding, rebound or rigidity Extremities Exam Extremities exam: Present normal inspection and normal capillary refill; Absent calf tenderness Back Exam Back exam: Present normal inspection and full ROM; Absent tenderness, CVA tenderness (R) or CVA tenderness (L) Neurological Exam Neurological exam: Present alert, oriented X3 and CN II-XII intact Psychiatric Psychiatric exam: Present normal affect and normal mood Skin Skin exam: Present warm, dry, intact and normal color Medical Decision Making Medical Records Medical records reviewed: No I reviewed the patient's medical records. Screening: Per USPSTF and CDC recommendations, given the prevalence of disease in our region, it is our hospital?s policy to screen for HIV and viral Hepatitis for all patients aged 18 and over and those with ongoing risk factors. Jb Inquiry Pt receiving controlled substance: No Vital Signs: 07/18/24 09:10 Temperature 98.0 F Temperature Source Oral Pulse Rate [Left Brachial] 87 Respiratory Rate 20 Blood Pressure [Left Arm] 114/61 Blood Pressure Mean [Left Arm] 78 Blood Pressure Source [Left Arm] Automatic Cuff Blood Pressure Position [Left Arm] Sitting 02 Sat by Pulse Oximetry 96 Oxygen Delivery Method Room Air Lab Data Lab results reviewed: Yes I reviewed the patient's lab results.
[2024-07-18 09:45] VITALS: BP 114/61; PULSE 87; RESP 20; TEMP 36.7; O2SAT 96
[2024-07-18 20:22] LABS: UTC Strep Screen (Rapid) Negative (Negative)
== END 2024-07-18 09:49 | disposition home or self-care (01) ==
PROVIDERS: Emergency Provider Nurse Practitioner Family; PCP Family Medicine
DX: O99.511 Diseases of the respiratory system complicating pregnancy, first trimester (principal); J02.9 Acute pharyngitis, unspecified; Z3A.01 Less than 8 weeks gestation of pregnancy
CPT/HCPCS: 87880; 99213; G0381